=== PATIENT | female | born 1935 | race Caucasian/White ===

== ENCOUNTER 2017-07-16 08:50 | Inpatient (IN) | payer OTHER ==
--- NOTE | 2017-07-16 09:52 | ER ---
Nurse's Notes [facility] Name: Jada Miranda Age: 82 yrs Sex: Female : 1935 Arrival Date: 07/16/2017 Time: 08:58 Bed 16 Private MD: Diagnosis: Gastrointestinal hemorrhage, unspecified;Anemia, unspecified;Unspecified kidney failure Presentation: 07/16 08:59 Presenting complaint: Patient states: From [facility], pt hemoglobin was ch 6 per their labs. c/o feeling dizzy for the past week denies an other issues or concerns. Transition of care: patient was not received from another setting of care. Onset of symptoms was July 06, 2017. Initial Sepsis Screen: Does the patient meet any 2 criteria? No. Patient's initial sepsis screen is negative. Does the patient have a suspected source of infection? No. Patient's initial sepsis screen is negative. Note PT IS A OUT OF HOSPITAL DNR PER PT REQUEST, PT DOES CONSENT TO BLOOD PRODUCTS. AWAITING PROIDER TO WRITE FOR IN HOSPITAL DNR PER PT REQUEST. Care prior to arrival: None. 08:59 Method Of Arrival: EMS: [facility] 08:59 Acuity: DAVIDE 3 ch Triage Assessment: 09:00 General: Appears in no apparent distress. comfortable, slender, Behavior is calm, rb1 cooperative, Reports fever for. Pain: Complains of pain in left low back and right low back Pain currently is 4 out of 10 on a pain scale. Neuro: Level of Consciousness is awake, alert, obeys commands, Oriented to person, place, time, situation, Reports dizziness. Cardiovascular: Capillary refill < 3 seconds is brisk in bilateral fingers. Respiratory: Airway is patent Respiratory effort is even, unlabored, Respiratory pattern is regular, symmetrical. GI: Colostomy site is clean and dry. Ostomy appliance is intact. : No signs and/or symptoms were reported regarding the genitourinary system. Derm: Skin is pink, warm \\T\\ dry. Musculoskeletal: Range of motion: intact in all extremities. Historical: - Allergies: 09:08 Enoxaparin; ch 09:08 Warfarin; ch 09:08 Ceftin; ch 09:08 Codeine; ch 09:08 Plavix; ch 09:08 Lovenox; ch - Home Meds: 09:08 Actonel 35 mg Oral tab 1 tab once wkly [Active]; aspirin 81 mg Oral chew 1 tab once ch daily [Active]; fexofenadine 30 mg Oral tab 1 tabs 2 times per day [Active]; Imodium A-D 2 mg oral tab 2 tabs [Active]; metoprolol tartrate 12.5MG Oral tab 1 tab 2 times per day [Active]; Pepcid 20 mg Oral tab 1 tab 2 times per day [Active]; Vitamin D3 4,000 unit oral cap [Active]; Zofran Oral for NEEDED [Active]; ergocalciferol (vitamin D2) 50,000 unit oral cap 1 cap once wkly [Active]; Flonase 50 mcg/actuation Nasal spsn 2 sprays once daily [Active]; melatonin 3 mg Oral tab daily [Active]; - PMHx: 09:08 Diverticulitis; Hypertension; Depression; MUSCLE WEAKNESS; KIDNEY DISEASE; NAUSEA; ch VITAMIN d DEFICIENCY; Anxiety; Chronic pain; BACK?; GERD; INSOMNIA; CANDIDAL STOMATITIS; DIARRHEA; Sinusitis; "DIFFICULTY WALKING"; ANOREXIA-GETS DIETARY SUPPLEMENTS NEEDED; - PSHx: 09:08 Colostomy; ch - Immunization history:: Adult Immunizations up to date, PT REFUSES. - Social history:: Smoking status: Patient/guardian denies using tobacco, Patient uses PT SMOKED FOR 62 YEARS, QUIT APPROX 9 YEARS AGO. - Family history:: not pertinent. Screenin:00 Abuse screen: Denies threats or abuse. Nutritional screening: No deficits noted. rb1 Tuberculosis screening: No symptoms or risk factors identified. Fall Risk None identified. Assessment: 09:00 General: See triage assessment. rb1 10:00 Reassessment: Patient appears in no apparent distress at this time. No changes from rb1 previously documented assessment. 10:28 Reassessment: Assisted pt. to the bathroom. No complications noted at this time. rb1 11:00 Reassessment: Patient and/or family updated on plan of care and expected duration. Pain rb1 level reassessed. Patient is alert, oriented x 3, equal unlabored respirations, skin warm/dry/pink. Patient denies pain at this time. 11:16 Reassessment: Assisted pt. to the bathroom, no complications noted at this time. rb1 12:00 Reassessment: Patient appears in no apparent distress at this time. Patient and/or rb1 family updated on plan of care and expected duration. Pain level reassessed. Patient is alert, oriented x 3, equal unlabored respirations, skin warm/dry/pink. 12:12 Reassessment: Pt. requested to use the bathroom before starting the blood transfusion. rb1 Assisted pt. to the bathroom, no complications noted at this time. 12:25 Reassessment: Blood transfusion was initiated. Blood was verified by myself and Niecy Ford. 12:46 Reassessment: Patient appears in no apparent distress at this time. No signs of adverse rb1 reactions to the PRBC's is noted at this time. Pt. denies SOB, tolerating blood infusion well. 13:25 Reassessment: Called to give report to the nurse, was asked by DUNIA Zaragoza to call back rb1 because the nurse was getting report on another pt. 13:34 Reassessment: Called back to give report and I was on hold for 9 minutes ([id number]), rb1 so I hung up and called back. 13:51 Reassessment: Called and gave report to RAMON Crum. Information from the SBAR was rb1 given. All questions asked and answered. 14:11 Reassessment: Patient appears in no apparent distress at this time. Patient and/or rb1 family updated on plan of care and expected duration. Pain level reassessed. Patient is alert, oriented x 3, equal unlabored respirations, skin warm/dry/pink. Patient denies pain at this time. Vital Signs: 09:02 BP 175 / 62; Pulse 72; Resp 16; Temp 97.9(O); Pulse Ox 98% on R/A; Weight 59.42 kg (R); rb1 Height 5 ft. 2 in. (157.48 cm) (R); Pain 4/10; 10:00 BP 136 / 58; Pulse 70; Resp 18; Pulse Ox 96% on R/A; Pain 0/10; rb1 11:00 BP 120 / 40; Pulse 76; Resp 23; Pulse Ox 96% on R/A; rb1 12:00 BP 136 / 58; Pulse 70; Resp 18; Pulse Ox 96% on R/A; Pain 0/10; rb1 12:45 BP 127 / 40; Pulse 68; Resp 14; Pulse Ox 95% on R/A; rb1 13:40 BP 121 / 44; Pulse 72; Resp 12; Pulse Ox 97% on R/A; Pain 0/10; rb1 13:52 BP 143 / 58; Pulse 72; Resp 17; Pulse Ox 97% on R/A; Pain 0/10; rb1 09:02 Body Mass Index 23.96 (59.42 kg, 157.48 cm) [facility] ED Course: 08:58 Patient arrived in ED. ch 09:00 Triage completed. ch 09:00 Patient has correct armband on for positive identification. Bed in low position. Call rb1 light in reach. Side rails up X 1. Pulse ox on. NIBP on. Warm blanket given. 09:00 Missed attempt(s): 22 gauge in left forearm. rb1 09:01 Bhumika Hargrove, RN is Primary Nurse. rb1 09:08 Arm band placed on left wrist. Patient placed in an exam room, on a stretcher, on pulse ch oximetry. EKG completed in triage. Results shown to MD. 09:12 EKG done, by brass instrument repair technician. reviewed by Jemal Estevez MD. at1 09:24 Jemal Estevez MD is Attending Physician. luis 09:51 Leigha Zuñiga MD is Hospitalizing Provider. luis 10:00 Kerwin Butts MD is Hospitalizing Provider. luis 10:10 Missed attempt(s): 22 gauge in right forearm. Bleeding controlled, band aid applied, aa5 catheter tip intact. 10:14 X-ray completed. Portable x-ray completed in exam room. jr1 10:15 Initial lab(s) drawn, by nv, sent to lab. T\\T\\S collected, blood band applied to patient. sv Inserted saline lock: 22 gauge in right wrist, using aseptic technique. ,using aseptic technique. diffusics Blood collected. 14:20 No provider procedures requiring assistance completed. Patient admitted, IV remains in rb1 place. Administered Medications: 10:30 Drug: ProTONIX 80 mg Route: IVP; Site: right wrist; rb1 10:45 Follow up: Response: No adverse reaction rb1 10:30 Drug: NS 0.9% 1000 ml Route: IV; Rate: 125 ml/hr; Site: right wrist; rb1 10:30 Drug: Cipro 400 mg Volume: 200 ml; Route: IVPB; Infused Over: 60 mins; Site: right rb1 wrist; 12:18 Follow up: Response: No adverse reaction; IV Status: Completed infusion rb1 Output: 10:28 Urine: 1ml (Voided); Stool: 1 (Loose Stool) ; Total: 1ml. rb1 11:16 Urine: 1ml (Voided); Total: 2ml. rb1 Outcome: 09:51 Decision to Hospitalize by Provider. [facility] 14:20 Patient left the ED. rb1 14:20 Admitted to Med/surg accompanied by nurse, accompanied by tech, via stretcher, room rb1 202, with chart, Report called to RAMON Crum 14:20 Condition: stable 14:20 Instructed on the need for admit. Signatures: Laure Barajas, RN RN Teena Newton RN RN sv Anderson, Corey, MD MD cha Ringgold, Nancy [email or web address] Charlotte Wills RN RN aa5 Reema lovell, windows architect EKG Tat1 Bhumika Hargrove RN RN rb1 Corrections: (The following items were deleted from the chart) 09:18 09:02 BP 175 / 62; Pulse 72bpm; Resp 16bpm; Pulse Ox 98% RA; Temp 97.9F Oral; Pain rb1 0/10; rb1 12:55 10:28 Urine 1, (Voided), Output Total 1. rb1 rb1 13:46 13:25 Reassessment: Called to give report to the nurse, was asked to call back because rb1 she was getting report on another pt rb1 20:46 14:47 Patient left the ED. rb1 rb1
--- NOTE | 2017-07-16 09:52 | EDPHYS ---
Physician Documentation [facility] Name: Jada Miranda Age: 82 yrs Sex: Female : 1935 Arrival Date: 07/16/2017 Time: 08:58 Bed 16 Private MD: Jemal Padilla HPI: 07/16 09:46 This 82 yrs old Female presents to ER via EMS with complaints of Abnormal Lab luis Results. 09:46 The patient presents with anemia, with colostomy. Onset: The symptoms/episode luis began/occurred 14 day(s) ago. Modifying factors: The symptoms are alleviated by nothing, the symptoms are aggravated by nothing. Associated signs and symptoms: The patient has no apparent associated signs or symptoms. Severity of symptoms: At their worst the symptoms were mild. The patient is not sexually active. The patient has not experienced similar symptoms in the past. Historical: - Allergies: 09:08 Enoxaparin; ch 09:08 Warfarin; ch 09:08 Ceftin; ch 09:08 Codeine; ch 09:08 Plavix; ch 09:08 Lovenox; ch - Home Meds: 09:08 Actonel 35 mg Oral tab 1 tab once wkly [Active]; aspirin 81 mg Oral chew 1 tab once ch daily [Active]; fexofenadine 30 mg Oral tab 1 tabs 2 times per day [Active]; Imodium A-D 2 mg oral tab 2 tabs [Active]; metoprolol tartrate 12.5MG Oral tab 1 tab 2 times per day [Active]; Pepcid 20 mg Oral tab 1 tab 2 times per day [Active]; Vitamin D3 4,000 unit oral cap [Active]; Zofran Oral for NEEDED [Active]; ergocalciferol (vitamin D2) 50,000 unit oral cap 1 cap once wkly [Active]; Flonase 50 mcg/actuation Nasal spsn 2 sprays once daily [Active]; melatonin 3 mg Oral tab daily [Active]; - PMHx: 09:08 Diverticulitis; Hypertension; Depression; MUSCLE WEAKNESS; KIDNEY DISEASE; NAUSEA; ch VITAMIN d DEFICIENCY; Anxiety; Chronic pain; BACK?; GERD; INSOMNIA; CANDIDAL STOMATITIS; DIARRHEA; Sinusitis; "DIFFICULTY WALKING"; ANOREXIA-GETS DIETARY SUPPLEMENTS NEEDED; - PSHx: 09:08 Colostomy; ch - Immunization history:: Adult Immunizations up to date, PT REFUSES. - Social history:: Smoking status: Patient/guardian denies using tobacco, Patient uses PT SMOKED FOR 62 YEARS, QUIT APPROX 9 YEARS AGO. - Family history:: not pertinent. ROS: 09:46 Constitutional: Negative for fever, chills, and weight loss, Eyes: Negative for injury, luis pain, redness, and discharge, ENT: Negative for injury, pain, and discharge, Neck: Negative for injury, pain, and swelling, Cardiovascular: Negative for chest pain, palpitations, and edema, Respiratory: Negative for shortness of breath, cough, wheezing, and pleuritic chest pain, Abdomen/GI: Negative for abdominal pain, nausea, vomiting, diarrhea, and constipation, Back: Negative for injury and pain, : Negative for injury, bleeding, discharge, and swelling, MS/Extremity: Negative for injury and deformity, Neuro: Negative for headache, weakness, numbness, tingling, and seizure, Psych: Negative for depression, anxiety, suicide ideation, homicidal ideation, and hallucinations, Allergy/Immunology: Negative for hives, rash, and allergies, Endocrine: Negative for neck swelling, polydipsia, polyuria, polyphagia, and marked weight changes, Hematologic/Lymphatic: Negative for swollen nodes, abnormal bleeding, and unusual bruising. 09:46 Skin: Positive for pallor. Exam: 09:46 Constitutional: This is a well developed, well nourished patient who is awake, alert, luis and in no acute distress. Head/Face: Normocephalic, atraumatic. Eyes: Pupils equal round and reactive to light, extra-ocular motions intact. Lids and lashes normal. Conjunctiva and sclera are non-icteric and not injected. Cornea within normal limits. Periorbital areas with no swelling, redness, or edema. ENT: Nares patent. No nasal discharge, no septal abnormalities noted. Tympanic membranes are normal and external auditory canals are clear. Oropharynx with no redness, swelling, or masses, exudates, or evidence of obstruction, uvula midline. Mucous membranes moist. Neck: Trachea midline, no thyromegaly or masses palpated, and no cervical lymphadenopathy. Supple, full range of motion without nuchal rigidity, or vertebral point tenderness. No Meningismus. Chest/axilla: Normal chest wall appearance and motion. Nontender with no deformity. No lesions are appreciated. Cardiovascular: Regular rate and rhythm with a normal S1 and S2. No gallops, murmurs, or rubs. Normal PMI, no JVD. No pulse deficits. Respiratory: Lungs have equal breath sounds bilaterally, clear to auscultation and percussion. No rales, rhonchi or wheezes noted. No increased work of breathing, no retractions or nasal flaring. Back: No spinal tenderness. No costovertebral tenderness. Full range of motion. Female : Normal external genitalia. MS/ Extremity: Pulses equal, no cyanosis. Neurovascular intact. Full, normal range of motion. Neuro: Awake and alert, GCS 15, oriented to person, place, time, and situation. Cranial nerves II-XII grossly intact. Motor strength 5/5 in all extremities. Sensory grossly intact. Cerebellar exam normal. Normal gait. Psych: Awake, alert, with orientation to person, place and time. Behavior, mood, and affect are within normal limits. 09:46 Abdomen/GI: Inspection: abdomen appears normal, Bowel sounds: normal, Palpation: abdomen is soft and non-tender, Rectal exam: Stool: guaiac positive, hemorrhoid(s), are not appreciated, pt has colostomy. Liver: no appreciated palpable abnormalities, Hernia: not appreciated. Vital Signs: 09:02 BP 175 / 62; Pulse 72; Resp 16; Temp 97.9(O); Pulse Ox 98% on R/A; Weight 59.42 kg (R); rb1 Height 5 ft. 2 in. (157.48 cm) (R); Pain 4/10; 10:00 BP 136 / 58; Pulse 70; Resp 18; Pulse Ox 96% on R/A; Pain 0/10; rb1 11:00 BP 120 / 40; Pulse 76; Resp 23; Pulse Ox 96% on R/A; rb1 12:00 BP 136 / 58; Pulse 70; Resp 18; Pulse Ox 96% on R/A; Pain 0/10; rb1 12:45 BP 127 / 40; Pulse 68; Resp 14; Pulse Ox 95% on R/A; rb1 13:40 BP 121 / 44; Pulse 72; Resp 12; Pulse Ox 97% on R/A; Pain 0/10; rb1 13:52 BP 143 / 58; Pulse 72; Resp 17; Pulse Ox 97% on R/A; Pain 0/10; rb1 09:02 Body Mass Index 23.96 (59.42 kg, 157.48 cm) rb1 MDM: 09:24 Patient medically screened. [facility] 11:16 Data reviewed: vital signs, nurses notes, lab test result(s), EKG, radiologic studies, luis plain films. 07/16 09:46 Order name: Basic Metabolic Panel [facility] 07/16 09:46 Order name: BNP [facility] 07/16 09:46 Order name: CBC with Diff; Complete Time: 11:12 [facility] 07/16 09:46 Order name: Ckmb; Complete Time: 11:12 [facility] 07/16 09:46 Order name: CPK; Complete Time: 11:12 [facility] 07/16 09:46 Order name: LFT's; Complete Time: 11:12 [facility] 07/16 09:46 Order name: Magnesium; Complete Time: 11:12 [facility] 07/16 09:46 Order name: PT-INR; Complete Time: 11:12 [facility] 07/16 09:46 Order name: Ptt, Activated; Complete Time: 11:12 [facility] 07/16 09:46 Order name: Troponin (emerg Dept Use Only); Complete Time: 11:12 [facility] 07/16 09:46 Order name: Type And Screen [facility] 07/16 09:46 Order name: Lipase; Complete Time: 11:12 [facility] 07/16 09:46 Order name: Basic Metabolic Panel; Complete Time: 11:12 [facility] 07/16 09:46 Order name: BNP B-Type Natriuretic Peptide; Complete Time: 11:12 [facility] 07/16 09:46 Order name: XRAY Chest (1 view) [facility] 07/16 09:46 Order name: EKG; Complete Time: 09:47 [facility] 07/16 09:46 Order name: Cardiac monitoring; Complete Time: 10:43 [facility] 07/16 09:46 Order name: EKG - Nurse/Tech; Complete Time: 10:43 [facility] 07/16 09:46 Order name: IV Saline Lock; Complete Time: 10:43 [facility] 07/16 09:47 Order name: Urine Culture [facility] 07/16 09:48 Order name: Urine Microscopic Only; Complete Time: 11:12 [facility] 07/16 09:53 Order name: Bb Add On bd 07/16 09:56 Order name: CONS Physician Consult [facility] 07/16 09:57 Order name: Packed RBC Leukored -1 [facility] 07/16 09:57 Order name: Urine Dipstick--Ancillary (enter results) 07/16 10:03 Order name: Urine Dipstick-Ancillary; Complete Time: 11:12 [facility] 07/16 10:35 Order name: RAD; Complete Time: 11:12 [facility] 07/16 09:46 Order name: Labs collected and sent; Complete Time: 10:42 [facility] 07/16 09:46 Order name: O2 Per Protocol; Complete Time: 10:43 [facility] 07/16 09:46 Order name: O2 Sat Monitoring; Complete Time: 10:43 [facility] 07/16 09:46 Order name: Urine Dipstick-Ancillary (obtain specimen); Complete Time: 09:48 [facility] 07/16 09:46 Order name: Transfuse [facility] Administered Medications: 10:30 Drug: ProTONIX 80 mg Route: IVP; Site: right wrist; rb1 10:45 Follow up: Response: No adverse reaction rb1 10:30 Drug: NS 0.9% 1000 ml Route: IV; Rate: 125 ml/hr; Site: right wrist; rb1 10:30 Drug: Cipro 400 mg Volume: 200 ml; Route: IVPB; Infused Over: 60 mins; Site: right rb1 wrist; 12:18 Follow up: Response: No adverse reaction; IV Status: Completed infusion rb1 Disposition: 07/16/17 09:51 Hospitalization ordered by Kerwin Butts for Inpatient Admission. Preliminary diagnosis are Gastrointestinal hemorrhage, unspecified, Anemia, unspecified, Unspecified kidney failure. - Bed requested for Telemetry/MedSurg (Inpatient). - Status is Inpatient Admission. rb1 - Condition is Fair. - Problem is new. - Symptoms are unchanged. UTI on Admission? Yes Signatures: Dispatcher [employer] [facility] Jyoti Aggarwal Laure Barajas RN RN ch Anderson, Corey, MD MD cha Barber, Rebecca, RN RN rb1 Lizett Vanessa RN RN df Corrections: (The following items were deleted from the chart) 10:01 09:51 Hospitalization Ordered by Leigha Zuñiga MD for Inpatient Admission. Preliminary [facility] diagnosis is Gastrointestinal hemorrhage, unspecified; Anemia, unspecified. Bed requested for Telemetry/MedSurg (Inpatient). Status is Inpatient Admission. Condition is Fair. Problem is new. Symptoms are unchanged. UTI on Admission? Yes. luis 11:17 10:01 07/16/2017 09:51 Hospitalization Ordered by Kerwin Butts MD for Inpatient luis Admission. Preliminary diagnosis is Gastrointestinal hemorrhage, unspecified; Anemia, unspecified. Bed requested for Telemetry/MedSurg (Inpatient). Status is Inpatient Admission. Condition is Fair. Problem is new. Symptoms are unchanged. UTI on Admission? Yes. luis 11:59 11:17 07/16/2017 09:51 Hospitalization Ordered by Kerwin Butts MD for Inpatient bd Admission. Preliminary diagnosis is Gastrointestinal hemorrhage, unspecified; Anemia, unspecified; Unspecified kidney failure. Bed requested for Telemetry/MedSurg (Inpatient). Status is Inpatient Admission. Condition is Fair. Problem is new. Symptoms are unchanged. UTI on Admission? Yes. luis 11:59 11:59 07/16/2017 09:51 Hospitalization Ordered by Kerwin Butts MD for Inpatient bd Admission. Preliminary diagnosis is Gastrointestinal hemorrhage, unspecified; Anemia, unspecified; Unspecified kidney failure. Bed requested for Telemetry/MedSurg (Inpatient). Status is Inpatient Admission. Condition is Fair. Problem is new. Symptoms are unchanged. UTI on Admission? Yes. bd 12:08 11:59 07/16/2017 09:51 Hospitalization Ordered by Kerwin Butts MD for Inpatient df Admission. Preliminary diagnosis is Gastrointestinal hemorrhage, unspecified; Anemia, unspecified; Unspecified kidney failure. Bed requested for Telemetry/MedSurg (Inpatient). Status is Inpatient Admission. Condition is Fair. Problem is new. Symptoms are unchanged. UTI on Admission? Yes. bd 14:07 12:08 07/16/2017 09:51 Hospitalization Ordered by Kerwin Butts MD for Inpatient bd Admission. Preliminary diagnosis is Gastrointestinal hemorrhage, unspecified; Anemia, unspecified; Unspecified kidney failure. Bed requested for Telemetry/MedSurg (Inpatient). Status is Inpatient Admission. Condition is Fair. Problem is new. Symptoms are unchanged. UTI on Admission? Yes. df 14:47 14:07 07/16/2017 09:51 Hospitalization Ordered by Kerwin Butts MD for Inpatient rb1 Admission. Preliminary diagnosis is Gastrointestinal hemorrhage, unspecified; Anemia, unspecified; Unspecified kidney failure. Bed requested for Telemetry/MedSurg (Inpatient). Status is Inpatient Admission. Condition is Fair. Problem is new. Symptoms are unchanged. UTI on Admission? Yes. bd
[2017-07-16 10:02] LABS: Urine Blood NEGATIVE (NEG); Urine Glucose NEGATIVE (NEG); Urine Protein NEGATIVE (NEG); Urine Specific Gravity <1.005 (1.005-1.030)
[2017-07-16 10:16] LABS: Urine Bacteria 20-50 /HPF (<20); Urine Culture Reflex Order NOT NEEDED; Urine RBC <5 /HPF (NONE SEEN)
[2017-07-16] MEDS ORDERED: NA CHLORIDE 0.9% 1,000 ML ONE (10:19)
[2017-07-16] MEDS ORDERED: PANTOPRAZOLE 40 MG INJ ONE (10:19)
[2017-07-16] MEDS ORDERED: CIPROFLOXACIN 400mg IV 400 MG/200 ML BAG IV ONE (10:19)
[2017-07-16] MEDS ORDERED: ONDANSETRON 4 MG/2 ML VIAL IV PRN ×2 (10:23→11:26)
[2017-07-16 10:33] LABS: Absolute Monocytes 0.8 K/uL (0.1-1.3); Absolute Neutrophil 7.9 K/uL (1.8-8.0); Basophils % 1.3 % (0-1.3); Eosinophils % 2.1 % (0-4.4); Hematocrit 22.2 % (36.0-45.0); Lymphocytes % 10.3 % (15.3-44.8); MCH 22.2 pg (27.0-35.0); MCV 73.9 fL (80-100); MPV 7.7 fL (7.6-11.3); Monocytes % 7.7 % (3.3-12.3); RBC Red Blood Cell Count 3.01 M/uL (3.86-4.86)
--- NOTE | 2017-07-16 10:35 | RAD REPORT ---
EXAM DESCRIPTION: RAD - Chest Single View - 07/16/2017 10:25 am CLINICAL HISTORY: Hypertension COMPARISON: 08/04/2015 FINDINGS: Portable technique limits examination quality. The lungs are mildly emphysematous but clear. The heart is upper limit normal in size. No displaced f ractures.Surgical clips are present superimposed on the upper chest. IMPRESSION: COPD without acute finding demonstrated.
[2017-07-16 10:37] LABS: Protime INR 1.14
[2017-07-16 10:46] LABS: Potassium 3.9 mEq/L (3.6-5.0)
[2017-07-16 10:53] LABS: Albumin 3.5 g/dL (3.2-5.5); Bilirubin Direct 0.1 mg/dL (0-0.2); Bilirubin Total 0.8 mg/dL (0.3-1.2); CKMB Creatine Kinase MB 1.6 ng/ml (0.3-4.0); Magnesium 1.9 mg/dL (1.8-2.5); Protein, Total 6.8 g/dL (6.0-8.3)
[2017-07-16] MEDS ORDERED: NA CHLORIDE 0.9% 250 ML IV SCH ×2 (11:00→12:00)
[2017-07-16] MEDS ORDERED: NA CHLORIDE 0.9% 1,000 ML IV SCH (11:00)
[2017-07-16] MEDS ORDERED: NA CHLORIDE 0.9% 250 ML ONE (11:59)
[2017-07-16] MEDS: NA CHLORIDE 0.9% 1,000 ML IV SCH ×2 (12:00→22:00)
[2017-07-16] MEDS ORDERED: CEFTRIAXONE/SWI 1gm 1 GM/10 ML SYR IV SCH (15:00)
--- NOTE | 2017-07-16 15:28 | EKG ---
Test Date: 2017-07-16 Test Time: 08:59:12 Mill Supervisor: MARLA MEASUREMENT RESULTS: Intervals: Rate: 68 WV: 166 QRSD: 86 QT: 410 QTc: 435 Sherman: P: 68 WV: 166 QRS: 63 T: 68 INTERPRETIVE STATEMENTS: Normal sinus rhythm with sinus arrhythmia Voltage criteria for left ventricular hypertrophy Abnormal ECG Compared to ECG 07/27/2015 07:35:34 Left ventricular hypertrophy now present ST (T wave) deviation no longer present Electronically Signed On 07-16-17 15:26:59 CDT by Jeremy Milian
[2017-07-16] MEDS ORDERED: CIPROFLOXACIN 400mg IV 400 MG/200 ML BAG IV SCH (21:00)
[2017-07-16] MEDS ORDERED: PANTOPRAZOLE 40 MG INJ IVP SCH (21:00)
[2017-07-16] MEDS ORDERED: PNEUMOCOCCAL VACCINE 0.5 ML IMVAC ONE (21:00)
[2017-07-16] MEDS: METOPROLOL TAR 25 MG TAB PO SCH (21:23)
[2017-07-16] MEDS: CIPROFLOXACIN 400mg IV 400 MG/200 ML BAG IV SCH (21:25)
[2017-07-16] MEDS: PANTOPRAZOLE 40 MG INJ IVP SCH (21:25)
[2017-07-16] MEDS ORDERED: FUROSEMIDE 40 MG/4 ML VIAL IV ONE (23:00)
[2017-07-16 23:25] LABS: Hematocrit 28.1 % (36.0-45.0)
--- NOTE | 2017-07-17 01:20 | HP ---
Date of Admission: 07/16/2017 Consultants: Lazaro Romo MD with GI. History Of Present Illness: The patient is an 82-year-old female with past medical history of recurr ent UTIs, hypertension, diverticulosis, coronary artery disease, hyperlipidemia, osteoporosis, allerg ic rhinitis, carotid artery stenosis, anxiety, GERD, neuropathy, lumbar spinal stenosis, who came in from the hospital due to abnormal labs. Hemoglobin was found to be 6.8. No reports of bleeding thro ugh the ileostomy. Denies any dizziness, lightheadedness. The patient is on daily aspirin. The pat ient's symptoms are constant and moderate, progressively worsening. In the ER, her workup confirmed a hemoglobin of 6.7. Her creatinine was 3.10. Most recent baseline was normal. Her UA was also abn ormal. The patient was started on 2 units of PRBCs given a dose of Cipro. GI was consulted by the E R. The patient was referred for admission. When the patient was seen in the ER, she was awake, aler t, oriented, in some mild distress, ill-appearing elderly female. Past Medical History: Recurrent UTIs, hypertension, diverticulosis, anemia, coronary artery disease, hyperlipidemia, impaired fasting glucose, osteoporosis, allergic rhinitis, coronary artery stenosis, anxiety, GERD, peripheral neuropathy, or spinal stenosis. Past Surgical History: Surgery of the carotid and subclavian artery in 2007, cholecystectomy, D and C, fistula repair with high output ileostomy. Allergies: TO LOVENOX AND COUMADIN. Medications: List reviewed. Family History: Not pertinent 82-year-old female. Social History: No smoking, alcohol, or street drug use. The patient is a resident of [facility]. Review of Systems: An 11-point system reviewed, negative except as per HPI. Physical Examination: Vital Signs: Blood pressure 175/62, pulse 72, respirations 16, temperature 97.9, pulse ox 98% on prisca m air. General: Awake, alert, oriented x3, in some mild distress. Ill-appearing female, elderly, frail. HEENT: Normocephalic, atraumatic. PERRLA. EOMI. Dry mucous membranes. Oropharynx is clear. Poor dentition. Conjunctivae anicteric. Neck: Supple. No JVD. Trachea midline. CV: S1, S2. No murmurs. Peripheral pulses are present bilaterally. Respiratory: Clear to auscultation bilaterally. No wheezing. No stridor. No use of accessory musc les. Gastrointestinal: Abdomen is soft, nontender, nondistended. Positive bowel sounds. Ileostomy in pl [place]. No rebound or guarding. Extremities: No clubbing, cyanosis, or edema. No calf tenderness. Neuro: Cranial nerves 2-12 intact grossly. No focal neurological deficit. Speech is normal. Stren gth is 5/5 in bilateral upper and lower extremities. Skin: No rashes. Normal skin turgor. Psych: Mood is okay. Affect is full. Insight and judgment are good. Laboratory Data: WBC 10, H and H 6.7 and 22.2, platelets 454, neutrophils 78%. INR 1.14. Sodium 13 2, potassium 3.9, chloride 98, CO2 26, BUN 32, creatinine 3.1, glucose 109, calcium 8.6, magnesium 1. 9. Troponin less than 0.03. BNP 133, lipase 25. UA, positive nitrite, trace leukocyte, 10-20 WBC, 20-50 bacteria. Chest x-ray personally reviewed shows COPD without acute finding demonstrated. Assessment: This is an 82-year-old female with: 1.Acute anemia, likely blood loss anemia. We will consult GI. We will keep n.p.o., start on IV PPI . Guaiac was positive. We will hold aspirin for now. 2.Acute kidney injury. Creatinine is 3.10. We will consult Nephrology. Continue on IV fluids. Mo nitor creatinine. Avoid NSAIDs and nephrotoxins. 3.Acute gastrointestinal bleed, likely lower source. GI on board. Continue to monitor H and H. 4.Urinary tract infection. We will start on IV antibiotics. Follow up with urine culture. 5.Thrombocytosis. 6.Essential hypertension, stable. 7.History of diverticulosis. 8.Coronary artery disease, [place] artery and [place] heart without angina. 9.Hyperlipidemia. 10.Osteoporosis. 11.Carotid artery stenosis. 12.Generalized anxiety disorder. 13.Gastroesophageal reflux disease. Continue PPI. 14.Peripheral neuropathy. 15.History of lumbar spinal stenosis. 16.Gastrointestinal and deep venous thrombosis prophylaxis PPI and SCDs. No chemical anticoagulatio n due to GI bleed. Plan: Admit the patient to Med-Surg, place as inpatient. SA/MODL Voice ID: [id number]
[2017-07-17 05:14] LABS: Absolute Monocytes 0.9 K/uL (0.1-1.3); Absolute Neutrophil 7.8 K/uL (1.8-8.0); Eosinophils % 1.6 % (0-4.4); Hematocrit 26.2 % (36.0-45.0); Lymphocytes % 10.2 % (15.3-44.8); MCH 23.2 pg (27.0-35.0); MCV 73.8 fL (80-100); MPV 7.7 fL (7.6-11.3); Monocytes % 8.7 % (3.3-12.3); RBC Red Blood Cell Count 3.56 M/uL (3.86-4.86)
[2017-07-17 05:20] LABS: Potassium 4.2 mEq/L (3.6-5.0)
[2017-07-17] MEDS: METOPROLOL TAR 25 MG TAB PO SCH ×2 (09:02→22:07)
[2017-07-17] MEDS: PANTOPRAZOLE 40 MG INJ IVP SCH ×2 (09:03→22:08)
[2017-07-17] MEDS ORDERED: Morphine 2 MG/2 ML SYR IV ONE (10:05)
--- NOTE | 2017-07-17 11:21 | RAD REPORT ---
EXAM DESCRIPTION: US - Renal Ultrasound-Complete - 07/17/2017 10:42 am CLINICAL HISTORY: Acute kidney injury COMPARISON: Ultrasound July 2015 FINDINGS: The right kidney measures 8.4 x 3.8 x 4.4 cm. The left kidney measures 9.0 x 3.4 x 4.5 cm . Cortical thickness is normal. There is an increase in cortical echogenicity consistent with medical renal disease. No hydronephrosis or suspicious renal mass. Small 10 mm cyst seen upper pole right ki dney. IMPRESSION: Medical renal disease is evident. No hydronephrosis or suspicious renal parenchymal proc ess.
[2017-07-17] MEDS: NA CHLORIDE 0.9% 1,000 ML IV SCH (12:55)
--- NOTE | 2017-07-17 14:11 | PN ---
Date of Progress Note: 07/17/2017 Subjective: The patient seen and examined. Chart reviewed and case discussed with RN and Dr. Romo. The patient awaiting GI evaluation for possible scope. No further bleeding. H and H stable after t ransfusion. Review of Systems: Negative except as above. Medications: Reviewed. Physical Examination: Vital Signs: Temperature 98.4, heart rate 65, blood pressure 118/51, respirations 16, O2 97% on room air. General: Awake, alert, oriented x3, not in any acute distress. Elderly female. CV: S1, S2. Peripheral pulses present. Respiratory: Moving air well bilaterally. No wheezing. Gastrointestinal: Abdomen is soft, nontender, nondistended. Positive bowel sounds. Extremities: No clubbing, cyanosis, or edema. Neurologic: Nonfocal. Laboratory Data: Sodium 136, potassium 4.2, chloride 102, CO2 26, BUN 28, creatinine 2.87, glucose 8 5, calcium 8.9. WBC 9.9, H and H 8.2 and 26.2, platelets 392, neutrophils 78%. Stool occult blood i s negative. Urine culture showing 2+ gram-negative rods. Assessment And Plan: An 82-year-old female with: 1.Acute blood loss anemia, status post transfusion. We will keep monitoring H and H, transfuse as n eeded. Continue IV PPI. 2.Acute gastrointestinal bleed. Dr. Romo has been consulted. On IV PPI. 3.Acute kidney injury. Creatinine is improving. Appreciate Nephrology input. We will continue to monitor. We will avoid NSAIDs and nephrotoxins. 4.Urinary tract infection. Urine culture is growing 2+ gram-negative rods. We will continue IV ant ibiotics and follow up on ID and sensitivity. 5.Thrombocytosis, resolved. 6.Essential hypertension, stable. Resume home medications. 7.History of diverticulosis. 8.Coronary artery disease, [place] artery and [place] heart without angina, stable. 9.Hyperlipidemia, mixed. Continue home medications. 10.Osteoporosis. 11.Carotid artery stenosis. 12.Generalized anxiety disorder. We will resume home medications. 13.Gastroesophageal reflux disease. Continue PPI. No esophagitis. 14.Peripheral neuropathy. 15.History of lumbar spinal stenosis. Adjust pain medications. 16.Gastrointestinal and deep venous thrombosis prophylaxis with PPI and SCDs. No chemical anticoagu lation due to gastrointestinal bleed. SA/MODL Voice ID: [id number] Report ID: [id number]
[2017-07-17] MEDS: ACETAMINOPHEN 500 MG TAB PO PRN (14:54)
--- NOTE | 2017-07-17 21:31 | CON ---
Date of Consultation: 07/17/2017 Reason For Consultation: Anemia, hemoglobin and hematocrit are in the range of 6.7 and 22 with low M CV. History Of Present Illness: Ms. Miranda is an 82-year-old female with past history of peptic ulcer disease and GI bleeding. However, she is noncompliant, generally does not follow up. In addition t o that, she has renal failure. She got admitted in the hospital with progressive worsening shortness of breath, lack of tolerance of exercise, and when in the ER it was shown that her hemoglobin and he matocrit are very low. In addition, the renal failure, as a result, she got admitted. At this time, she states that in general she is feeling somewhat better after getting blood transfusion. Denies a ny hematemesis, melena, or hematochezia. She also has abdominal pain in the right mid quadrant, no r adiation; however, it is related to her postural change. Her shortness of breath has improved. Past Medical History: As elaborated above. In addition to that, UTI, diverticulosis, hypertension, GERD, coronary artery disease. Past Surgical History: Peripheral vascular disease surgery, cholecystectomy, fistula repair, ileosto my. Family History: Gastrointestinal malignancy history is not in her family. Social History: No alcohol or tobacco. Psychiatric History: None. Allergies: REVIEWED IN THE CHART. Medications: Reviewed in the chart. Review of Systems: General: Positive weakness. Positive shortness of breath, especially upon exertion. No fever or ch ills. GI: As elaborated above. Hepatology: Denies any history of jaundice, hepatitis, any other liver disease. Pulmonary: Shortness of breath upon exertion. No cough or expectoration. Cardiac: Positive palpitation. No heart murmur. No orthopnea or dyspnea. Genitourinary: Occasional incontinence. Musculoskeletal: Generalized weakness, some arthralgia and myalgia. Dermatologic: No complaint. Physical Examination: General: Elderly female, at this time no other acute distress noted. Hemodynamic respiratory profil e within normal range. HEENT: Atraumatic, normocephalic. Some bitemporal wasting noted. No icterus; however, pallor in th e conjunctivae noted. Neck: Supple. No lymphadenopathy. Trachea central in position. Chest: Clear to auscultation and percussion. Cardiovascular: S1 and S2 are irregular. Abdomen: Soft, nontender, nondistended. Excellent bowel sounds present. No hepatomegaly. No splen omegaly. No succussion splash. Neurologic: Alert and oriented x3. Intact memory, mentation, and judgment. Extremities: Upper and lower extremities are normal and symmetrical. Dermatologic: Normal. Diagnostic Data: As elaborated above. Impression, Plan And Recommendation: Ms. Miranda is an 82-year-old female with low MCV or microcyt ic anemia. She also has renal failure, multiple other medical problems. She has been also noncompli ant in the past. This could be lower GI bleeding or upper GI bleeding; however, given the past history of upper GI ble eding from bleeding peptic ulcer disease, I will proceed with upper GI endoscopy. This will also giv e us indirect evidence as to how she will tolerate anesthesia and other thing. If no acute bleeding noted in the EGD, colonoscopy could be done on as an outpatient basis. I have had a long discussion with the patient regarding the indications, contraindications, possible complications, alternatives of all of the above including rare fatalities related to anesthesia. She has good understanding. Geronimo alas is agreeable. REYNALDO/JOE Voice ID: [id number] Report ID: [id number]
[2017-07-17] MEDS: CIPROFLOXACIN 400mg IV 400 MG/200 ML BAG IV SCH (22:07)
[2017-07-17] MEDS ORDERED: TRAZODONE 50 MG TABLET PO PRN (22:55)
[2017-07-18] MEDS: NA CHLORIDE 0.9% 1,000 ML IV SCH ×2 (01:20→14:35)
--- NOTE | 2017-07-18 02:33 | CON ---
Date of Consultation: 07/17/2017 Reason For Consultation: Elevated BUN and creatinine, fluid management. History Of Present Illness: This is an 82-year-old female with significant past medical history of; 1.Hypertension. 2.Diverticulosis, status post colostomy. 3.Coronary artery disease. 4.Hyperlipidemia. 5.Osteoporosis. 6.Carotid stenosis. 7.GERD. 8.Neuropathy. 9.Lumbar spinal stenosis. The patient came to the hospital from the [facility] because of low H and H. Primary workup showed hemoglobin down to 6.8, creatinine up to 3.1. For that reason, we have been consulted. The patient denied taking any nonsteroidal. Denied any antibiotic. No itching. The patient admitted that she has a problem with the diarrhea since her colostomy placed, but denies any fever or any chills. Past Medical History: Includes; 1.Diverticulosis, status post colostomy. 2.Recurrent UTI. 3.Coronary artery disease. 4.Carotid stenosis. 5.Hyperlipidemia. 6.GERD. Past Surgical History: Includes; 1.Surgery for the carotid. 2.Cholecystectomy. 3.Fistula. 4.Ileostomy. Allergies: TO COUMADIN AND LOVENOX. Family History: Positive for hypertension. Social History: Lives in [facility]. Denies smoking. Denies drinking. Denies drugs abuse. Medications: Home medications for the patient include; 1.Magnesium oxide. 2.Zofran. 3.Omeprazole. 4.Metoprolol 25 b.i.d. 5.Loperamide. Current medications in the hospital include; 1.Cipro 400. 2.Metoprolol 25. 3.Pantoprazole. 4.IV fluids. Physical Examination: General: When I saw the patient, the patient was lying in bed, not in any distress. Vital Signs: Blood pressure 162/62, pulse of 64, and afebrile. Chest: Clear to auscultation. Heart: S1, S2. Regular. Abdomen: Soft and nontender. Extremities: No edema. Abdomen: Colostomy. Neurologic: Alert. Nonfocal. The patient had urine output 825 over the last 12 hours. Laboratory Data: On admission, H and H 6.7/22.2. Currently, WBC 9.9, H and H 8.2/26.2, and platelet s 392. Sodium on admission 132, potassium 3.9, BUN 32, and creatinine of 3. Currently, sodium 136, potassium 4.2, bicarb 26, BUN 28, creatinine 2.8, and calcium 8.9. BMP 133. Urinalysis; specific gr avity of 1.005, wbc's of 20, rbc's of 50. Renal ultrasound showing 8.4 x 9 atrophic bilateral kidney s. Reviewing the record for the patient, the patient's creatinine back in August 2015 was creatinine of 1. 05 and GFR of 50. Assessment And Plan: 1.Acute kidney injury, normal-sized kidneys to small kidneys bilaterally, possible prerenal dehydrat ion secondary to use of diuresis, on the recovery phase. I am going to continue gentle hydration. W e will monitor the patient. We will send further workup. 2.Hypertension, currently noncontrolled. I am going to go ahead and add calcium channel jessie, an d we will monitor. 3.Anemia. We will follow up with GI, status post transfusion, stable. I am going to go ahead and s end for anemia workup. 4.Urinary tract infection. The patient was started on ciprofloxacin. We will follow up. Thank you, Dr. Romo, for allowing us to participate in the care of your patient. JR Voice ID: [id number] Report ID: [id number]
[2017-07-18 07:01] LABS: Absolute Lymphocytes (CBC) 1.2 K/uL (0.7-4.9); Absolute Monocytes 0.8 K/uL (0.1-1.3); Absolute Neutrophil 5.7 K/uL (1.8-8.0); Basophils % 1.3 % (0-1.3); Eosinophils % 2.5 % (0-4.4); Hematocrit 28.2 % (36.0-45.0); Lymphocytes % 14.8 % (15.3-44.8); MCH 23.4 pg (27.0-35.0); MCV 73.5 fL (80-100); MPV 8.2 fL (7.6-11.3); RBC Red Blood Cell Count 3.83 M/uL (3.86-4.86)
[2017-07-18 07:18] LABS: BUN Blood Urea Nitrogen 29 mg/dL (6-20); Bicarbonate 26 mEq/L (21-31); Ferritin 15.5 ng/ml (11.0-306.8); Folic Acid, (Folate) > 22.3 ng/ml (>5.21); Glucose Level 73 mg/dL (65-120); Phosphorus 4.2 mg/dL (2.5-4.3); Potassium 4.2 mEq/L (3.6-5.0); Sodium Level 135 mEq/L (135-145); Thyroid Stimulating Hormone 0.59 uIU/mL (0.34-5.60); Transferrin 355 mg/dL (192-382)
[2017-07-18] MEDS: METOPROLOL TAR 25 MG TAB PO SCH ×3 (09:00→21:10)
[2017-07-18] MEDS ORDERED: Meropenem 500 MG VIAL IV SCH (09:00)
[2017-07-18] MEDS: Meropenem 500 MG in NA CHLORIDE 0.9% 100 ML IV SCH ×2 (09:11→16:49)
[2017-07-18] MEDS: PANTOPRAZOLE 40 MG INJ IVP SCH ×2 (09:12→21:11)
[2017-07-18] MEDS: ACETAMINOPHEN 500 MG TAB PO PRN (11:12)
[2017-07-18] MEDS ORDERED: Morphine 2 MG/2 ML SYR IV ONE (11:18)
--- NOTE | 2017-07-18 13:56 | PN ---
Date of Progress Note: 07/18/2017 Subjective: The patient is seen and examined. Chart reviewed and case discussed with GI, Dr. Romo. The patient doing better this morning. Awaiting scope. Denies any significant pain. Review of Systems: Negative except as above. Medications: Reviewed. Physical Examination: Vital Signs: Temperature 99.6, heart rate 61, blood pressure 139/51, respirations 16, O2 96% on 2 L nasal cannula. General: Awake, alert, oriented x3, in no acute distress. Elderly female, frail. CV: S1, S2. No murmurs. Peripheral pulses present. Respiratory: Clear to auscultation bilaterally. No wheezing. No stridor. No use of accessory muscles. Gastrointestinal: Abdomen is soft, nontender, nondistended. Positive bowel sounds. Extremities: No clubbing, cyanosis, or edema. Neurologic: Nonfocal. Laboratory Data: Sodium 135, potassium 4.2, chloride 102, CO2 26, BUN 29, creatinine 2.57, glucose 73, calcium 9, phosphorus 4.2. Iron 32, TIBC 497, transferrin 355, ferritin 15.5, albumin 3, vitamin B12 of 344, folate greater than 22, TSH 0.59. WBC 8, H and H 9 and 28.2, platelets 392, neutrophils 71%. Rheumatoid factor pending. Urine culture growing Proteus mirabilis ESBL producing. Assessment And Plan: An 82-year-old female with: 1. Acute blood loss anemia, status post transfusion. We will monitor H and H. The patient going for scope today. Continue IV PPI. 2. Acute gastrointestinal bleed. Appreciate Dr. Romo's input. Continue PPI. No further bleed. 3. Acute kidney injury. Creatinine improved. We will continue to monitor. Continue IV fluids. Avoidance of nephrotoxins. Appreciate Nephrology input. 4. Urinary tract infection, acute cystitis without hematuria. Culture growing Proteus mirabilis ESBL producing. We will switch antibiotics to meropenem. The patient will need PICC line and IV antibiotics for 4 weeks. We will consult Social Work to set that up at the alf. 5. Essential hypertension, stable. 6. History of diverticulosis. 7. Coronary artery disease, [place] artery and [place] heart without angina, stable. 8. Hyperlipidemia, mixed. Continue statin. 9. Osteoporosis. 10. Carotid artery stenosis. 11. Generalized anxiety disorder. Resume medications. 12. Gastroesophageal reflux disease without esophagitis. Continue PPI. 13. Peripheral neuropathy. 14. History of lumbar spinal stenosis. Continue pain medications. 15. Gastrointestinal and deep venous thrombosis prophylaxis with PPI and SCDs. No chemical anticoagulation due to GI bleed. /JOE Voice ID: [id number] Report ID: [id number]
[2017-07-18] MEDS ORDERED: NA CHLORIDE 0.9% 1,000 ML ONE (13:57)
[2017-07-18] MEDS ORDERED: PROPOFOL 200 MG/20 ML VIAL IV ONE (14:11)
--- NOTE | 2017-07-18 23:30 | PN ---
Date of Progress Note: 07/18/2017 Chief Complaint: Acute kidney injury. History Of Present Illness: Acute kidney injury, severe, nonoliguric. Renal function has not improved significantly since yesterday. Creatinine level was 2.57. The patient presented to the hospital with generalized weakness. She had blood work done and it showed sodium 135, potassium 4.2, chloride 102, CO2 26, BUN 29, and creatinine 2.53. On arrival to the hospital, creatinine was 3.10, baseline creatinine level back in 2016 was 1.05. The patient has nonoliguric urine output and she is started on IV fluids. Review of Systems: The patient denies fever or chills. Physical Examination: Lungs: Clear to auscultation bilaterally. Heart: S1, S2. Abdomen: Soft, benign. Extremities: No edema. Impression And Plan: 1. Acute kidney injury. Renal ultrasound showed small-sized kidneys bilaterally. There is possible chronic kidney disease. Kidney sizes are smaller than average size. There is some prerenal azotemia due to diuretics. Continue IV fluids for hydration. Monitor fluid balance. Avoid LANA inhibitor. 2. Electrolytes are in stable range. There is no hyperkalemia. There is no acidosis. 3. Urinary tract infection. The patient was started on ciprofloxacin. Continue to re-evaluate. Adjust antibiotics to renal dose and adjust antibiotics according to urine culture. 4. Renal function has not improved significantly since yesterday. This may represent new baseline. Renal ultrasound is showing small size kidneys with some echogenicity. Please see report from Radiology. Renal ultrasound was done on July 17, right kidney size 8.4 cm in length, left kidney 9.0 cm in length. There is medical renal disease evident, but there is no obstructive uropathy and no hydronephrosis. I spent total 36 min including 26 min to coordinate care plan. ALEXANDER/JOE Voice ID: [id number] Report ID: [id number] ANGELA
[2017-07-19] MEDS: Meropenem 500 MG in NA CHLORIDE 0.9% 100 ML IV SCH ×2 (00:38→08:58)
[2017-07-19 01:47] LABS: Rheumatoid Factor NEG (NEG)
--- NOTE | 2017-07-19 02:25 | OP ---
Surgeon: Gordo Zuniga MD Procedure Performed: Esophagogastroduodenoscopy. Indication For Procedure: Suspected upper GI bleed, anemia. For full details, please refer to Dr. Marquis savage's consultation from yesterday. Plan For Anesthesia: Monitored anesthesia care. Complexity: Average. Technique: After obtaining informed consent from the patient and explaining risks and complications, which include, but are not limited to bleeding, infection, perforation and anesthesia complication. The patient was placed in a left lateral position and sedation was given. From then on, the scope w as advanced into the esophagus and carefully guided up till the second portion of the duodenum. No a ctive bleeding seen; however, stigmata of possible bleedings were treated. After the completion of e xamination, the scope and equipment were withdrawn and procedure terminated in a safe manner. Findings: Esophagus: No gross lesion seen in the upper and mid esophagus. In the distal esophagus, a circumferential area of squamous mucosa consistent with Murphy's seen. According to Cord class ification, this was C3M3. Biopsies were taken. Stomach: Mild patchy erythema seen in the body and moderate striped erythema seen in the antrum. Bio psies taken. Duodenum: In the bulb, a small nonbleeding angiodysplasia seen. The second portion appeared normal. Due to the anemia and angiodysplasia, decision was taken to ablate this lesion. It was ablated with APC with complete eradication. Impression: Murphy esophagus, gastritis, duodenal angiodysplasia. Plan: 1.Await pathology results. 2.Oral PPI b.i.d. 3.Follow up in the GI clinic in 1-2 weeks. US/MODL Voice ID: [id number] Report ID: [id number]
[2017-07-19 04:54] LABS: Absolute Lymphocytes (CBC) 1.3 K/uL (0.7-4.9); Absolute Monocytes 0.9 K/uL (0.1-1.3); Basophils % 1.2 % (0-1.3); Eosinophils % 3.2 % (0-4.4); Lymphocytes % 13.5 % (15.3-44.8); MCH 23.5 pg (27.0-35.0); MCV 74.4 fL (80-100); MPV 8.1 fL (7.6-11.3); Monocytes % 9.8 % (3.3-12.3); RBC Red Blood Cell Count 4.03 M/uL (3.86-4.86)
[2017-07-19 05:15] LABS: Albumin 3.2 g/dL (3.2-5.5); Phosphorus 3.8 mg/dL (2.5-4.3)
[2017-07-19] MEDS: NA CHLORIDE 0.9% 1,000 ML IV SCH (05:28)
[2017-07-19 06:46] LABS: UR CREAT 57.7 mg/dL; Urine Protein/Creatinine Ratio 0.14 (<0.15)
[2017-07-19] MEDS: ACETAMINOPHEN 500 MG TAB PO PRN (08:57)
[2017-07-19] MEDS: PANTOPRAZOLE 40 MG INJ IVP SCH (08:58)
[2017-07-19] MEDS: METOPROLOL TAR 25 MG TAB PO SCH (08:58)
[2017-07-19] MEDS ORDERED: HYDRALAZINE HCL 20 MG/ML VIAL IV PRN (11:00)
[2017-07-19] MEDS ORDERED: HYDROCODONE/APAP 5/325 MG TAB PO PRN (11:00)
--- NOTE | 2017-07-19 12:17 | RAD REPORT ---
EXAM DESCRIPTION: RAD - Chest Single View - 07/19/2017 12:08 pm CLINICAL HISTORY: Device placement PICC line placement COMPARISON: July 16, 2017 FINDINGS: A PICC line has been inserted with its tip in the junction of the superior vena cava and right atrium. The lungs appear clear of acute infiltrate. The heart is mildly enlarged IMPRESSION: PICC line with its tip in the junction of the superior vena cava and right atrium
--- NOTE | 2017-07-19 13:37 | PN ---
Date of Progress Note: 07/19/2017 Subjective: The patient seen and examined, chart reviewed, and case discussed with RN. The patient had EGD done yesterday, which showed some angiodysplasia. The patient has not had any blood in her i leostomy bag. Complaining of mild headache and pain overall in her joint today. Review of Systems: Negative except as above. Medications: Reviewed. Physical Examination: Vital Signs: Temperature 99.3, heart rate 64, blood pressure 201/79, respirations 16, and O2 95% on room air. General: Awake, alert, oriented x3. Elderly female, in some mild distress. CV: S1, S2. No murmurs. Regular rate and rhythm. Peripheral pulses present. Respiratory: Moving air well bilaterally. No wheezing. Gastrointestinal: Abdomen is soft, nontender, nondistended. Positive bowel sounds. Ileostomy in pl [place]. Extremities: No clubbing, cyanosis, edema. Neurologic: Nonfocal. Laboratory Data: Sodium 137, potassium 4, chloride 105, CO2 25, BUN 24, creatinine 2.21, glucose 84, calcium 8.7, and phosphorus 3.8. WBC 9.6, H and H 9.4, 30, and platelets 351. Rheumatoid factor is negative. Urine culture shows Proteus mirabilis, which is ESBL producing. Assessment And Plan: An 82-year-old female with; 1.Acute gastrointestinal bleed. The patient has Murphy's esophagus and duodenal angiodysplasia fou nd on EGD. Appreciate GI input. We will continue PPI. 2.Acute blood loss anemia, status post transfusion. Monitor H and H. 3.Acute kidney injury. Creatinine improved. We will continue to monitor. Continue IV fluids. Nep hrology on board. Avoid nephrotoxins and NSAIDs. 4.Urinary tract infection, acute cystitis without hematuria. Culture growing Proteus mirabilis with extended-spectrum beta-lactamase producing. Continue meropenem. The patient will need 4 weeks of I V meropenem. 5.Essential hypertension, uncontrolled this morning. We will add p.r.n. medications. 6.History of diverticulosis. 7.Coronary artery disease, [place] artery and [place] heart without angina, stable. 8.Hyperlipidemia, mixed. Continue statin. 9.Osteoporosis. Adjust pain medication. 10.Carotid artery stenosis. 11.Generalized anxiety disorder. 12.Gastroesophageal reflux disease. The patient has Murphy's esophagus. We will continue PPI. 13.Peripheral neuropathy. 14.History of lumbar spinal stenosis. Continue pain medications. 15.Gastrointestinal and deep venous thrombosis prophylaxis with PPI and SCDs. No chemical anticoagu lation due to gastrointestinal bleed. Plan: Discharge planning. Set up IV antibiotics at [facility]. /JOE Voice ID: [id number] Report ID: [id number]
--- NOTE | 2017-07-19 14:46 | DS ---
Date of Discharge: 07/19/2017 Consultants: Dr. Romo and Dr. Zuniga with GI and Dr. Hoffman and Dr. Morales with Nephrology. 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 Admitting Diagnoses: 1.Acute gastrointestinal bleed. 2.Acute anemia of blood loss. 3.Acute kidney injury. 4.Urinary tract infection. 5.Thrombocytosis. 6.Essential hypertension. 7.History of diverticulosis. 8.Coronary artery disease, e[place]gik artery and [place] heart without angina. 9.Hyperlipidemia. 10.Osteoporosis. 11.Carotid artery stenosis. 12.Generalized anxiety disorder. 13.Gastroesophageal reflux disease. 14.Peripheral neuropathy. 15.History of lumbar spinal stenosis. Discharge Diagnosis: 1.Acute blood loss anemia, status post transfusion, secondary to gastrointestinal bleed. 2.Acute gastrointestinal bleed secondary to gastritis, Murphy's esophagus, and duodenal angiodyspla hesham. Continue PPI. 3.Acute kidney injury, improving. The patient does have some chronicity to her kidney injury. 4.Urinary tract infection, acute cystitis without hematuria secondary to Proteus, extended-spectrum beta-lactamase producing, will be on meropenem for 4 weeks. 5.Essential hypertension. 6.History of diverticulosis. 7.Coronary artery disease, e[place] artery and [place] heart without angina. 8.Hyperlipidemia, statin. 9.Osteoporosis. 10.Carotid artery stenosis. 11.Generalized anxiety disorder. 12.Gastroesophageal reflux disease with Murphy's esophagus. 13.Peripheral neuropathy. 14.History of lumbar spinal stenosis. Hospital Course: The patient is an 82-year-old female from [facility], who came in due to abnormal labs. The patient was found to have a hemoglobin of 6.8. The patient was transfused. She also had elevated creatinine of 3.1, which is above her baseline. The patient was found to have some chronic kidney injury. Nephrology was consulted. She was started on IV fluids, which improved her creatini ne. The patient had EGD done, which showed Murphy's esophagus, gastritis, and duodenal dysplasia. The patient was continued on Protonix. GI was involved in the care of the patient. The patient then did not have any bleeding in her ileostomy. She was treated initially with Cipro for her UTI. Godfrey jose, her urine cultures returned ESBL producing Proteus. She was switched to meropenem. PICC line w as ordered and was placed. The patient was then cleared for discharge from performance improvement consultant's standpoint. Her hemoglobin remained stable. Did not need any further transfusions. The patient was then discha [facility]ged [facility] in a stable condition. Activity: Fall precautions. Diet: Renal. Followup: 1.Follow up with primary care physician in 1 week. 2.Follow up with spindle sander, Dr. Hoffman in 2 weeks. 3.Follow up with GI, Dr. Romo in 2 weeks. Return to ER for worsening condition. Medications: As per medication reconciliation list. Finish up a course of meropenem for a total of 4 weeks for ESBL producing Proteus. The patient will need repeat urine cultures after antibiotics ar e completed. Physical Examination: For physical Exam findings, please see progress note dictated on day of discharge. /JOE Voice ID: [id number] Report ID: [id number]
[2017-07-19] MEDS ORDERED: Meropenem 500 MG in NA CHLORIDE 0.9% 100 ML IV SCH (21:00)
[2017-07-21 21:53] LABS: Albumin, (SPE) 3.2 g/dL (3.8-4.8); Alpha-1-Globulins 0.4 g/dL (0.2-0.3); Alpha-2-Globulins 0.7 g/dL (0.5-0.9); Gamma Globulins 1.2 g/dL (0.8-1.7); INTERPRETATION REPORT
== END 2017-07-19 14:33 | DRG 812 ==
LOC: ER 08:50 → ERHOLD 09:53 → 2ND 13:58
PROVIDERS: ADMIT Internal Medicine; ATTEND Family Medicine
PROC: 30233N1 Transfusion of Nonautologous Red Blood Cells into Peripheral Vein, Percutaneous Approach (ICD-10-PCS; 2017-07-16)
PROC: 0DJ08ZZ Inspection of Upper Intestinal Tract, Via Natural or Artificial Opening Endoscopic (ICD-10-PCS; 2017-07-18)
PROC: 3E0G8GC Introduction of Other Therapeutic Substance into Upper GI, Via Natural or Artificial Opening Endoscopic (ICD-10-PCS; principal; 2017-07-18 14:45)
PROC: 02HV33Z Insertion of Infusion Device into Superior Vena Cava, Percutaneous Approach (ICD-10-PCS; 2017-07-19)
DX: D62 Acute posthemorrhagic anemia (principal); K92.2 Gastrointestinal hemorrhage, unspecified; N30.00 Acute cystitis without hematuria; N17.9 Acute kidney failure, unspecified; K22.719 Barrett's esophagus with dysplasia, unspecified; K29.70 Gastritis, unspecified, without bleeding; B96.4 Proteus (mirabilis) (morganii) as the cause of diseases classified elsewhere; K57.90 Diverticulosis of intestine, part unspecified, without perforation or abscess without bleeding; I25.10 Atherosclerotic heart disease of native coronary artery without angina pectoris; M81.0 Age-related osteoporosis without current pathological fracture; I65.29 Occlusion and stenosis of unspecified carotid artery; F41.1 Generalized anxiety disorder; K21.9 Gastro-esophageal reflux disease without esophagitis; G62.9 Polyneuropathy, unspecified; I12.9 Hypertensive chronic kidney disease with stage 1 through stage 4 chronic kidney disease, or unspecified chronic kidney disease; N18.9 Chronic kidney disease, unspecified
CPT/HCPCS: 36415; 71045; 76770; 80048; 80069; 80076; 81003; 81015; 82274; 82550; 82553; 82570; 82607; 82728; 82746; 83540; 83690; 83735; 83880; 83970; 84156; 84165; 84443; 84466; 84484; 85014; 85018; 85025; 85044; 85610; 85730; 86430; 86850; 86900; 86901; 87077; 87086; 87088; 87186; 88305; 88312; 88313; 93005; 94760; 96365; 96366; 96375; 99285; C9113; J0696; J0744; J2270; J7030; P9016

== ENCOUNTER 2017-10-26 15:14 | Emergency (ER) | payer OTHER ==
--- NOTE | 2017-10-26 16:11 | RAD REPORT ---
EXAM DESCRIPTION: CT - Pelvis Wo Cont - 10/26/2017 3:47 pm CLINICAL HISTORY: Bilateral hip pain COMPARISON: None. TECHNIQUE: Computed axial tomography of the pelvis was obtained All CT scans are performed using dose optimization technique as appropriate and may include automated exposure control or mA/KV adjustment according to patient size. 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 A right ventral hernia contains nondilated bowel. The neck measures 5 centimeters. 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
--- NOTE | 2017-10-26 16:29 | ER ---
Nurse's Notes [facility] Name: Jada Miranda Age: 82 yrs Sex: Female : 1935 Arrival Date: 10/26/2017 Time: 14:54 Bed 6 Private MD: Diagnosis: Pain in left hip Presentation: 10/26 14:54 Presenting complaint: EMS states: Pt from [facility], had x-ray taken due to c/o ph back pain and L femoral head fracture was discovered, pt denies fall or injury, pt ambulatory upon EMS arrival, denies hip pain at this time, only complaint is back pain (3/10). Transition of care: patient was not received from another setting of care. Onset of symptoms was October 26, 2017. Risk Assessment: Do you want to hurt yourself or someone else? Patient reports no desire to harm self or others. Initial Sepsis Screen: Does the patient meet any 2 criteria? No. Patient's initial sepsis screen is negative. Does the patient have a suspected source of infection? No. Patient's initial sepsis screen is negative. Care prior to arrival: None. 14:54 Method Of Arrival: EMS: [facility] ph 14:54 Acuity: DAVIDE 3 ph Historical: - Allergies: 15:01 Ceftin; ph 15:01 Codeine; ph 15:01 Enoxaparin; ph 15:01 Lovenox; ph 15:01 Plavix; ph 15:01 Warfarin; ph - Home Meds: 15:01 Actonel 35 mg Oral tab 1 tab once wkly [Active]; aspirin 81 mg Oral chew 1 tab once ph daily [Active]; ergocalciferol (vitamin D2) 50,000 unit Oral cap 1 cap once wkly [Active]; fexofenadine 30 mg Oral tab 1 tabs 2 times per day [Active]; Flonase 50 mcg/actuation Nasal spsn 2 sprays once daily [Active]; Imodium A-D 2 mg Oral tab 2 tabs [Active]; melatonin 3 mg Oral tab daily [Active]; metoprolol tartrate 12.5MG Oral tab 1 tab 2 times per day [Active]; Pepcid 20 mg Oral tab 1 tab 2 times per day [Active]; Vitamin D3 4,000 unit Oral cap [Active]; Zofran Oral for as needed [Active]; - PMHx: 15:01 "DIFFICULTY WALKING"; ANOREXIA-GETS DIETARY SUPPLEMENTS NEEDED; Anxiety; CANDIDAL ph STOMATITIS; Chronic pain; BACK?; Depression; Diverticulitis; GERD; Hypertension; diarrhea; insomnia; kidney disease; MUSCLE WEAKNESS; Nausea; vitamin d deficiency; Sinusitis; - PSHx: 15:01 Colostomy; ph - Immunization history:: Adult Immunizations up to date. - Social history:: Smoking status: Patient/guardian denies using tobacco. - Ebola Screening: : Ebola risk identified: . Screenin:26 Abuse screen: Denies threats or abuse. Nutritional screening: No deficits noted. la1 Tuberculosis screening: No symptoms or risk factors identified. Fall Risk No fall in past 12 months (0 pts). No secondary diagnosis (0 pts). No IV (0 pts). Ambulatory Aid- Crutches/Cane/Walker (15 pts). Gait- Weak (10 pts.). Mental Status- Oriented to own ability (0 pts). Total Ochoa Fall Scale indicates Low Risk Score (25-44 pts). Side Rails Up X 2. Assessment: 15:26 General: Appears in no apparent distress. Behavior is calm, cooperative. Pain: la1 Complains of pain in lumbar area, left low back and right low back. Neuro: Level of Consciousness is awake, alert, obeys commands, Oriented to person, place, time, situation, Ultrasound Technologist Sonographer are equal bilaterally Moves all extremities. Full function Gait is unsteady, Speech is normal, Facial symmetry appears normal. Cardiovascular: Capillary refill < 3 seconds Patient's skin is warm and dry. Respiratory: Airway is patent Respiratory effort is even, unlabored, Respiratory pattern is regular, symmetrical, Breath sounds are clear bilaterally. GI: Colostomy site Ostomy appliance is intact. : No signs and/or symptoms were reported regarding the genitourinary system. 16:39 Reassessment: Patient appears in no apparent distress at this time. No changes from me1 previously documented assessment. Patient and/or family updated on plan of care and expected duration. Pain level reassessed. 16:39 Reassessment: report called to [facility], stated they are arranging for me1 transport back to the facility. Vital Signs: 14:55 BP 124 / 51; Pulse 84; Resp 19; Temp 97.8(TE); Pulse Ox 93% on R/A; la1 17:10 BP 136 / 74; Pulse 71; Resp 16; Pulse Ox 97% on R/A; la1 ED Course: 14:54 Patient arrived in ED. ph 14:55 Edd Chang, RN is Primary Nurse. la1 14:57 Triage completed. ph 14:57 Red Peck NP is PHCP. pm1 14:57 Ervin Lagne MD is Attending Physician. pm1 15:26 Arm band placed on right wrist. la1 15:27 Bed in low position. Call light in reach. la1 15:47 CT Pelvis wo Cont In Process Unspecified. EDMS 17:09 No provider procedures requiring assistance completed. Patient did not have IV access la1 during this emergency room visit. Administered Medications: No medications were administered Outcome: 16:28 Discharge ordered by . pm1 17:09 Discharged to [facility]. la1 17:09 Condition: stable 17:09 Discharge instructions given to [facility], Instructed on discharge instructions, follow up and referral plans. medication usage, Demonstrated understanding of instructions, follow-up care. 17:10 Patient left the ED. la1 Signatures: Dispatcher [employer] EDMS Edd Chang, RAMON RN la1 Mirtha Esposito RN RN Red Peck NP SIGNAL TESTER pm1
--- NOTE | 2017-10-26 16:29 | EDPHYS ---
Physician Documentation [facility] Name: Jada Miranda Age: 82 yrs Sex: Female : 1935 Arrival Date: 10/26/2017 Time: 14:54 Bed 6 Private MD: ED Physician Ervin Lange HPI: 10/26 16:30 This 82 yrs old Female presents to ER via EMS with complaints of Hip Injury. pm1 16:30 This 82 yrs old Female presents to ER via EMS with complaints of Left Hip pm1 Pain. 16:30 The patient or guardian reports pain. that occurred at home, sustained from unknown pm1 reason, There is no obvious deformity, The patient is able to self ambulate. The patient is able to bear their full body weight. There is no radiation of the patient's discomfort. The complaints affect the left hip. Onset: The symptoms/episode began/occurred 1 week(s) ago. Modifying factors: The symptoms are alleviated by tramadol the symptoms are aggravated by nothing. Associated signs and symptoms: Pertinent negatives: abdominal pain, chest pain, dysuria, fever. Severity of symptoms: in the emergency department the symptoms have improved. Patient was complaining of right hip pain that has improved and then started having left hip pain. Right hip pain resolved. Patient lives in longterm and an X-ray of her hips was performed. Patient was initially told that her x-rays were negative, then she was told that she has a left femoral fracture. Patient is able to walk. No fall injury. Historical: - Allergies: 15:01 Ceftin; ph 15:01 Codeine; ph 15:01 Enoxaparin; ph 15:01 Lovenox; ph 15:01 Plavix; ph 15:01 Warfarin; ph - Home Meds: 15:01 Actonel 35 mg Oral tab 1 tab once wkly [Active]; aspirin 81 mg Oral chew 1 tab once ph daily [Active]; ergocalciferol (vitamin D2) 50,000 unit Oral cap 1 cap once wkly [Active]; fexofenadine 30 mg Oral tab 1 tabs 2 times per day [Active]; Flonase 50 mcg/actuation Nasal spsn 2 sprays once daily [Active]; Imodium A-D 2 mg Oral tab 2 tabs [Active]; melatonin 3 mg Oral tab daily [Active]; metoprolol tartrate 12.5MG Oral tab 1 tab 2 times per day [Active]; Pepcid 20 mg Oral tab 1 tab 2 times per day [Active]; Vitamin D3 4,000 unit Oral cap [Active]; Zofran Oral for as needed [Active]; - PMHx: 15:01 "DIFFICULTY WALKING"; ANOREXIA-GETS DIETARY SUPPLEMENTS NEEDED; Anxiety; CANDIDAL ph STOMATITIS; Chronic pain; BACK?; Depression; Diverticulitis; GERD; Hypertension; diarrhea; insomnia; kidney disease; MUSCLE WEAKNESS; Nausea; vitamin d deficiency; Sinusitis; - PSHx: 15:01 Colostomy; ph - Immunization history:: Adult Immunizations up to date. - Social history:: Smoking status: Patient/guardian denies using tobacco. - Ebola Screening: : Ebola risk identified: . ROS: 16:30 Constitutional: Negative for fever, chills, and weight loss, Eyes: Negative for injury, pm1 pain, redness, and discharge, ENT: Negative for injury, pain, and discharge, Neck: Negative for injury, pain, and swelling, Cardiovascular: Negative for chest pain, palpitations, and edema, Respiratory: Negative for shortness of breath, cough, wheezing, and pleuritic chest pain, Abdomen/GI: Negative for abdominal pain, nausea, vomiting, diarrhea, and constipation, Back: Negative for injury and pain. 16:30 Skin: Negative for injury, rash, and discoloration, Neuro: Negative for headache, weakness, numbness, tingling, and seizure. 16:30 MS/extremity: Positive for left hip pain, Negative for decreased range of motion, deformity. Exam: 16:30 Constitutional: This is a well developed, well nourished patient who is awake, alert, pm1 and in no acute distress. Head/Face: Normocephalic, atraumatic. Eyes: Pupils equal round and reactive to light, extra-ocular motions intact. Lids and lashes normal. Conjunctiva and sclera are non-icteric and not injected. Cornea within normal limits. Periorbital areas with no swelling, redness, or edema. ENT: Nares patent. No nasal discharge, no septal abnormalities noted. Tympanic membranes are normal and external auditory canals are clear. Oropharynx with no redness, swelling, or masses, exudates, or evidence of obstruction, uvula midline. Mucous membranes moist. Neck: Trachea midline, no thyromegaly or masses palpated, and no cervical lymphadenopathy. Supple, full range of motion without nuchal rigidity, or vertebral point tenderness. No Meningismus. Chest/axilla: Normal chest wall appearance and motion. Nontender with no deformity. No lesions are appreciated. Cardiovascular: Regular rate and rhythm with a normal S1 and S2. No gallops, murmurs, or rubs. Normal PMI, no JVD. No pulse deficits. Respiratory: Lungs have equal breath sounds bilaterally, clear to auscultation and percussion. No rales, rhonchi or wheezes noted. No increased work of breathing, no retractions or nasal flaring. Abdomen/GI: Soft, non-tender, with normal bowel sounds. No distension or tympany. No guarding or rebound. No evidence of tenderness throughout. Back: No spinal tenderness. No costovertebral tenderness. Full range of motion. Skin: Warm, dry with normal turgor. Normal color with no rashes, no lesions, and no evidence of cellulitis. 16:30 Musculoskeletal/extremity: Extremities: grossly normal except: noted in the left hip: tenderness, There is no evidence of decreased ROM, deformity. Vital Signs: 14:55 BP 124 / 51; Pulse 84; Resp 19; Temp 97.8(TE); Pulse Ox 93% on R/A; la1 17:10 BP 136 / 74; Pulse 71; Resp 16; Pulse Ox 97% on R/A; la1 MDM: 15:03 Patient medically screened. pm1 16:21 Data reviewed: vital signs. Counseling: I had a detailed discussion with the patient pm1 and/or guardian regarding: the historical points, exam findings, and any diagnostic results supporting the discharge/admit diagnosis, radiology results, the need for outpatient follow up, to return to the emergency department if symptoms worsen or persist or if there are any questions or concerns that arise at home. 10/26 15:09 Order name: CT Pelvis wo Cont; Complete Time: 16:21 pm1 Administered Medications: No medications were administered Disposition: 10/26/17 16:28 Discharged to Home. Impression: Pain in left hip. - Condition is Stable. - Discharge Instructions: Hip Pain. - Prescriptions for Tramadol 50 mg Oral Tablet - take 1 tablet by ORAL route every 8 hours as needed; 12 tablet. - Medication Reconciliation Form, Thank You Letter, Antibiotic Education, Prescription Opioid Use form. - Follow up: Private Physician; When: 2 - 3 days; Reason: Recheck today's complaints, Continuance of care, Re-evaluation by your physician. Follow up: Emergency Department; When: As needed; Reason: Worsening of condition. - Problem is new. - Symptoms have improved. Addendum: 10/28/2017 11:21 Co-signature as Attending Physician, Ervin Lange MD I agree with the assessment and w a plan of care. Signatures: Dispatcher [employer] EDMI Edd Chang RN RN la1 Mirtha Esposito RN RN Red Peck, PHARMACY CONSULTANT PHARMACY CONSULTANT pm1 Nazario, MD JEWEL Mueller [place] Corrections: (The following items were deleted from the chart) 10/26 16:03 15:16 Hip Left 2 View+RAD.RAD.BRZ ordered. [facility] EDMI 17:10 16:28 10/26/2017 16:28 Discharged to Home. Impression: Pain in left hip. Condition is la1 Stable. Forms are Medication Reconciliation Form, Thank You Letter, Antibiotic Education, Prescription Opioid Use. Follow up: Private Physician; When: 2 - 3 days; Reason: Recheck today's complaints, Continuance of care, Re-evaluation by your physician. Follow up: Emergency Department; When: As needed; Reason: Worsening of condition. Problem is new. Symptoms have improved. pm1
== END 2017-10-26 17:10 | disposition home or self-care (01) ==
LOC: ER 15:14
DX: M25.552 Pain in left hip (principal); F32.9 Major depressive disorder, single episode, unspecified; K21.9 Gastro-esophageal reflux disease without esophagitis; E55.9 Vitamin D deficiency, unspecified; I12.9 Hypertensive chronic kidney disease with stage 1 through stage 4 chronic kidney disease, or unspecified chronic kidney disease; N18.9 Chronic kidney disease, unspecified; Z93.3 Colostomy status; Z88.1 Allergy status to other antibiotic agents; Z88.5 Allergy status to narcotic agent; Z88.8 Allergy status to other drugs, medicaments and biological substances; Z79.82 Long term (current) use of aspirin
CPT/HCPCS: 72192; 99283

== ENCOUNTER 2019-03-04 14:25 | Inpatient (IN) | payer OTHER ==
[2019-03-04 15:36] LABS: Absolute Lymphocytes (CBC) 0.8 K/uL (0.7-4.9); Basophils % 0.3 % (0-1.3); Hematocrit 34.5 % (36.0-45.0); Lymphocytes % 6.4 % (15.3-44.8); MPV 9.5 fL (7.6-11.3); RBC Red Blood Cell Count 4.05 M/uL (3.86-4.86)
[2019-03-04 15:44] LABS: Protime INR 1.14
[2019-03-04 15:56] LABS: ALT/SGPT 16 U/L (12-78); AST/SGOT 18 U/L (15-37); Albumin 4.2 g/dL (3.4-5.0); Alkaline Phosphatase 90 U/L (45-117); BUN Blood Urea Nitrogen 130 mg/dL (7-18); Bicarbonate 15 mmol/L (21-32); Bilirubin Direct 0.2 mg/dL (0-0.2); Bilirubin Total 0.5 mg/dL (0.2-1.0); Glucose Level 113 mg/dL (74-106); Magnesium 2.2 mg/dL (1.8-2.4); NT PRO-BNP 1656 pg/mL (<450); Potassium 4.8 mmol/L (3.5-5.1); Protein, Total 9.1 g/dL (6.4-8.2); Sodium Level 129 mmol/L (136-145); Troponin (Emerg Dept Use Only) < 0.02 ng/mL (0.0-0.045)
--- NOTE | 2019-03-04 16:10 | RAD REPORT ---
EXAM DESCRIPTION: RAD - Chest Single View - 03/04/2019 3:06 pm CLINICAL HISTORY: Shortness of breath, hypertension COMPARISON: July 2017 TECHNIQUE: AP portable chest image was obtained 1504 hours . FINDINGS: No focal lung parenchymal process. Interstitial pattern matches comparison. PICC line has been removed since prior imaging. Heart and vasculature are normal. No measurable pleural effusion an d no pneumothorax. No acute bony abnormality seen. No acute aortic findings suspected. IMPRESSION: No acute cardiopulmonary process. No suspicious interval change.
[2019-03-04 16:32] LABS: Urine Blood 1+ (NEG); Urine Glucose NEGATIVE (NEG); Urine Protein NEGATIVE (NEG); Urine Specific Gravity 1.025 (1.005-1.030)
[2019-03-04 16:40] LABS: Urine Bacteria LOADED /HPF (<20); Urine Culture Reflex Order REFLEXED
--- NOTE | 2019-03-04 16:55 | ER ---
Nurse's Notes [facility] Name: Jada Miranda Age: 83 yrs Sex: Female : 1935 Arrival Date: 03/04/2019 Time: 14:29 Bed 7 Private MD: Diagnosis: Acute kidney failure;Urinary tract infection, site not specified Presentation: 03/04 14:29 Presenting complaint: EMS states: Routine labs this morning: NA 130, K 5.3, CO2 13, BUN hb 128, CREAT 7.89. Transition of care: patient was not received from another setting of care. Onset of symptoms was March 04, 2019. Risk Assessment: Do you want to hurt yourself or someone else? Patient reports no desire to harm self or others. Initial Sepsis Screen: Does the patient meet any 2 criteria? No. Patient's initial sepsis screen is negative. Does the patient have a suspected source of infection? No. Patient's initial sepsis screen is negative. Care prior to arrival: None. 14:29 Method Of Arrival: EMS: [facility] hb 14:29 Acuity: DAVIDE 3 hb Historical: - Allergies: 14:33 Ceftin; hb 14:33 Codeine; hb 14:33 Enoxaparin; hb 14:33 Lovenox; hb 14:33 Plavix; hb 14:33 Warfarin; hb - Home Meds: 14:33 Actonel 35 mg Oral tab 1 tab once wkly [Active]; aspirin 81 mg Oral chew 1 tab once hb daily [Active]; ergocalciferol (vitamin D2) 50,000 unit Oral cap 1 cap once wkly [Active]; fexofenadine 30 mg Oral tab 1 tabs 2 times per day [Active]; Flonase 50 mcg/actuation Nasal spsn 2 sprays once daily [Active]; Imodium A-D 2 mg Oral tab 2 tabs [Active]; melatonin 3 mg Oral tab daily [Active]; metoprolol tartrate 12.5MG Oral tab 1 tab 2 times per day [Active]; Pepcid 20 mg Oral tab 1 tab 2 times per day [Active]; Vitamin D3 4,000 unit Oral cap [Active]; Zofran Oral for as needed [Active]; - PMHx: 14:33 Depression; Hypertension; diarrhea; insomnia; GERD; kidney disease; Chronic pain; hb BACK?; MUSCLE WEAKNESS; Diverticulitis; CANDIDAL STOMATITIS; "DIFFICULTY WALKING"; ANOREXIA-GETS DIETARY SUPPLEMENTS NEEDED; Nausea; Anxiety; Sinusitis; vitamin d deficiency; - PSHx: 14:33 Colostomy; hb - Immunization history:: Adult Immunizations up to date. - Social history:: Smoking status: Patient/guardian denies using tobacco. - Ebola Screening: : No symptoms or risks identified at this time. Screenin:36 Abuse screen: Denies threats or abuse. Denies injuries from another. Nutritional hb screening: No deficits noted. Tuberculosis screening: No symptoms or risk factors identified. Fall Risk None identified. Assessment: 14:30 General: Appears in no apparent distress. Behavior is calm, cooperative. Pain: Denies hb pain. Neuro: Level of Consciousness is awake, alert, obeys commands, Oriented to person, place, time, situation. Cardiovascular: Heart tones S1 S2 present Capillary refill < 3 seconds Patient's skin is warm and dry. Respiratory: Airway is patent Respiratory effort is even, unlabored, Respiratory pattern is regular, symmetrical, Breath sounds are clear bilaterally. GI: No signs and/or symptoms were reported involving the gastrointestinal system. : No signs and/or symptoms were reported regarding the genitourinary system. EENT: No signs and/or symptoms were reported regarding the EENT system. Derm: Skin is pink, warm \\T\\ dry. Musculoskeletal: No signs and/or symptoms reported regarding the musculoskeletal system. 15:30 Reassessment: Patient appears in no apparent distress at this time. Patient and/or hb family updated on plan of care and expected duration. Pain level reassessed. Patient is alert, oriented x 3, equal unlabored respirations, skin warm/dry/pink. 16:30 Reassessment: Patient appears in no apparent distress at this time. Patient and/or hb family updated on plan of care and expected duration. Pain level reassessed. Patient is alert, oriented x 3, equal unlabored respirations, skin warm/dry/pink. 17:14 Reassessment: Patient appears in no apparent distress at this time. No changes from jl7 previously documented assessment. Patient and/or family updated on plan of care and expected duration. Pain level reassessed. Patient is alert, oriented x 3, equal unlabored respirations, skin warm/dry/pink. Patient denies pain at this time. 18:00 Reassessment: Patient appears in no apparent distress at this time. Patient and/or hb family updated on plan of care and expected duration. Pain level reassessed. Patient is alert, oriented x 3, equal unlabored respirations, skin warm/dry/pink. 18:14 Reassessment: Attempted to call report to floor, receiving nurse unavailable at this hb time. Vital Signs: 14:33 BP 124 / 72; Pulse 102; Resp 18; Temp 98.2; Pulse Ox 96% on R/A; Weight 60.78 kg; hb Height 5 ft. 1 in. (154.94 cm); Pain 0/10; 15:30 BP 126 / 76; Pulse 187; Resp 15; Pulse Ox 98% on R/A; Pain 0/10; hb 16:30 BP 109 / 63; Pulse 89; Resp 17; Pulse Ox 100% on R/A; Pain 0/10; hb 17:14 BP 118 / 65; Pulse 85; Resp 14 S; Pulse Ox 97% on R/A; jl7 18:15 BP 107 / 92; Pulse 84; Resp 15; Temp 97.9; Pulse Ox 97% on R/A; Pain 0/10; hb 14:33 Body Mass Index 25.32 (60.78 kg, 154.94 cm) hb ED Course: 14:29 Patient arrived in ED. hb 14:31 Triage completed. hb 14:32 [facility] kb 14:32 Abhay Cristobal MD is Attending Physician. kb 14:33 Arm band placed on. hb 14:36 Patient has correct armband on for positive identification. Bed in low position. Call light in reach. Side rails up X 1. 14:45 Sameera Parry, RN is Primary Nurse. hb 15:05 XRAY Chest (1 view) In Process Unspecified. EDMS 15:27 Inserted saline lock: 24 gauge in right forearm, using aseptic technique. ,using sv aseptic technique. diffusics Blood collected. Flushed right forearm with 5 ml normal saline. 15:39 EKG done, by ED staff, reviewed by Juana GUERRA. em1 16:21 Straight cath inserted, using sterile technique, 16 Fr. Specimen obtained. Returned jl7 cloudy urine. Patient tolerated well. 16:54 Prezas, Francisco, DO is Hospitalizing Provider. kb 18:39 No provider procedures requiring assistance completed. Patient admitted, IV remains in jl7 place. intact, No redness/swelling at site. Administered Medications: 17:25 Drug: Meropenem 1 grams Route: IV; Rate: calculated rate; Site: right forearm; jl7 18:05 Follow up: IV Status: Completed infusion; IV Intake: 100ml hb 18:15 Follow up: Response: No adverse reaction hb 17:25 Drug: NS 0.9% 1000 ml Route: IV; Rate: 1000 ml; Site: right forearm; jl7 18:40 Follow up: Response: No adverse reaction; IV Status: Completed infusion; IV Intake: hb 1000ml 18:36 Drug: traMADol 50 mg Route: PO; jl7 18:50 Follow up: Response: Medication administered at discharge. hb Intake: 18:05 IV: 100ml; Total: 100ml. hb 18:40 IV: 1000ml; Total: 1100ml. hb Outcome: 16:54 Decision to Hospitalize by Provider. kb 18:39 Admitted to Tele accompanied by tech, via stretcher, room 201, with chart. jl7 18:39 Condition: stable 18:39 Discharge instructions given to patient, family, Instructed on the need for admit, Demonstrated understanding of instructions. 19:13 Patient left the ED. hb Signatures: Dispatcher [employer] EDJuana Quintero, CARTON WRAPPER-C CARTON WRAPPER-CkTeena Chowdhury, RN Jero Moore em1 Sameera Parry RN RN hb Leal, Jahala, RN RN 7
--- NOTE | 2019-03-04 16:56 | EDPHYS ---
Physician Documentation [facility] Name: Jada Miranda Age: 83 yrs Sex: Female : 1935 Arrival Date: 03/04/2019 Time: 14:29 Bed 7 Private MD: ED Physician Abhay Cristobal HPI: 03/04 15:07 This 83 yrs old Female presents to ER via EMS with complaints of Abnormal Lab kb Results. 15:07 Pt reports she had routine blood work done and was told that her creatinine was high kb and something else was low so she needed to come to the ER for evaluation. Pt reports weakness for about a week and chronic low back pain. Onset: The symptoms/episode began/occurred today. Severity of symptoms: At their worst the symptoms were moderate in the emergency department the symptoms are unchanged. The patient has not experienced similar symptoms in the past. The patient has not recently seen a physician. Historical: - Allergies: 14:33 Ceftin; hb 14:33 Codeine; hb 14:33 Enoxaparin; hb 14:33 Lovenox; hb 14:33 Plavix; hb 14:33 Warfarin; hb - Home Meds: 14:33 Actonel 35 mg Oral tab 1 tab once wkly [Active]; aspirin 81 mg Oral chew 1 tab once hb daily [Active]; ergocalciferol (vitamin D2) 50,000 unit Oral cap 1 cap once wkly [Active]; fexofenadine 30 mg Oral tab 1 tabs 2 times per day [Active]; Flonase 50 mcg/actuation Nasal spsn 2 sprays once daily [Active]; Imodium A-D 2 mg Oral tab 2 tabs [Active]; melatonin 3 mg Oral tab daily [Active]; metoprolol tartrate 12.5MG Oral tab 1 tab 2 times per day [Active]; Pepcid 20 mg Oral tab 1 tab 2 times per day [Active]; Vitamin D3 4,000 unit Oral cap [Active]; Zofran Oral for as needed [Active]; - PMHx: 14:33 Depression; Hypertension; diarrhea; insomnia; GERD; kidney disease; Chronic pain; hb BACK?; MUSCLE WEAKNESS; Diverticulitis; CANDIDAL STOMATITIS; "DIFFICULTY WALKING"; ANOREXIA-GETS DIETARY SUPPLEMENTS NEEDED; Nausea; Anxiety; Sinusitis; vitamin d deficiency; - PSHx: 14:33 Colostomy; hb - Immunization history:: Adult Immunizations up to date. - Social history:: Smoking status: Patient/guardian denies using tobacco. - Ebola Screening: : No symptoms or risks identified at this time. ROS: 15:05 Constitutional: Negative for fever, chills, and weight loss, Neck: Negative for injury, kb pain, and swelling, Cardiovascular: Negative for chest pain, palpitations, and edema, Respiratory: Negative for shortness of breath, cough, wheezing, and pleuritic chest pain, Abdomen/GI: Negative for abdominal pain, nausea, vomiting, diarrhea, and constipation, : Negative for injury, bleeding, discharge, and swelling, MS/Extremity: Negative for injury and deformity, Skin: Negative for injury, rash, and discoloration. 15:05 Back: Positive for pain at rest, pain with movement, of the low back area. 15:05 Neuro: Positive for weakness. Exam: 15:05 Constitutional: This is a well developed, well nourished patient who is awake, alert, kb and in no acute distress. Head/Face: Normocephalic, atraumatic. ENT: Nares patent. No nasal discharge, no septal abnormalities noted. Tympanic membranes are normal and external auditory canals are clear. Oropharynx with no redness, swelling, or masses, exudates, or evidence of obstruction, uvula midline. Mucous membranes moist. Neck: Trachea midline, no thyromegaly or masses palpated, and no cervical lymphadenopathy. Supple, full range of motion without nuchal rigidity, or vertebral point tenderness. No Meningismus. Chest/axilla: Normal chest wall appearance and motion. Nontender with no deformity. No lesions are appreciated. Cardiovascular: Regular rate and rhythm with a normal S1 and S2. No gallops, murmurs, or rubs. Normal PMI, no JVD. No pulse deficits. Respiratory: Lungs have equal breath sounds bilaterally, clear to auscultation and percussion. No rales, rhonchi or wheezes noted. No increased work of breathing, no retractions or nasal flaring. Abdomen/GI: Soft, non-tender, with normal bowel sounds. No distension or tympany. No guarding or rebound. No evidence of tenderness throughout. Skin: Warm, dry with normal turgor. Normal color with no rashes, no lesions, and no evidence of cellulitis. MS/ Extremity: Pulses equal, no cyanosis. Neurovascular intact. Full, normal range of motion. Neuro: Awake and alert, GCS 15, oriented to person, place, time, and situation. Cranial nerves II-XII grossly intact. Motor strength 5/5 in all extremities. Sensory grossly intact. Cerebellar exam normal. Normal gait. 15:05 Back: pain, that is mild, of the low back area. Vital Signs: 14:33 BP 124 / 72; Pulse 102; Resp 18; Temp 98.2; Pulse Ox 96% on R/A; Weight 60.78 kg; hb Height 5 ft. 1 in. (154.94 cm); Pain 0/10; 15:30 BP 126 / 76; Pulse 187; Resp 15; Pulse Ox 98% on R/A; Pain 0/10; hb 16:30 BP 109 / 63; Pulse 89; Resp 17; Pulse Ox 100% on R/A; Pain 0/10; hb 17:14 BP 118 / 65; Pulse 85; Resp 14 S; Pulse Ox 97% on R/A; jl7 18:15 BP 107 / 92; Pulse 84; Resp 15; Temp 97.9; Pulse Ox 97% on R/A; Pain 0/10; hb 14:33 Body Mass Index 25.32 (60.78 kg, 154.94 cm) hb MDM: 14:32 Patient medically screened. kb 15:04 Data reviewed: vital signs, nurses notes. Data interpreted: Pulse oximetry: on room air kb is 96 %. Interpretation: normal. 16:53 Counseling: I had a detailed discussion with the patient and/or guardian regarding: the kb historical points, exam findings, and any diagnostic results supporting the discharge/admit diagnosis, lab results, radiology results, the need for further work-up and treatment in the hospital. Physician consultation: Francisco Cat DO was contacted at 16:53, regarding admission, to the medical/surgical unit. patient's condition, and will see patient in ED, shortly. 03/04 14:43 Order name: Basic Metabolic Panel; Complete Time: 16:05 kb 03/04 14:43 Order name: CBC with Diff kb 03/04 14:43 Order name: LFT's; Complete Time: 16:05 kb 03/04 14:43 Order name: Magnesium; Complete Time: 16:05 kb 03/04 14:43 Order name: NT PRO-BNP; Complete Time: 16:05 kb 03/04 14:43 Order name: PT-INR; Complete Time: 15:51 kb 03/04 14:43 Order name: Troponin (emerg Dept Use Only); Complete Time: 16:05 kb 03/04 14:43 Order name: XRAY Chest (1 view); Complete Time: 16:13 kb 03/04 16:19 Order name: Urine Microscopic Only; Complete Time: 16:42 kb 03/04 16:21 Order name: Urine Dipstick--Ancillary (enter results); Complete Time: 16:35 bd 03/04 16:42 Order name: Urine Culture EDPA 03/04 17:06 Order name: Procalcitonin kb 03/04 17:06 Order name: Lactate kb 03/04 17:57 Order name: CBC Smear Scan EDPA 03/04 14:43 Order name: EKG; Complete Time: 14:45 kb 03/04 14:43 Order name: Cardiac monitoring; Complete Time: 15:30 kb 03/04 14:43 Order name: EKG - Nurse/Tech; Complete Time: 15:30 kb 03/04 14:43 Order name: IV Saline Lock; Complete Time: 15:30 kb 03/04 14:43 Order name: Labs collected and sent; Complete Time: 15:30 kb 03/04 14:43 Order name: O2 Per Protocol; Complete Time: 15:30 kb 03/04 14:43 Order name: O2 Sat Monitoring; Complete Time: 15:30 kb 03/04 16:08 Order name: Urine Dipstick-Ancillary (obtain specimen); Complete Time: 16:21 kb Administered Medications: 17:25 Drug: Meropenem 1 grams Route: IV; Rate: calculated rate; Site: right forearm; jl7 18:05 Follow up: IV Status: Completed infusion; IV Intake: 100ml hb 18:15 Follow up: Response: No adverse reaction hb 17:25 Drug: NS 0.9% 1000 ml Route: IV; Rate: 1000 ml; Site: right forearm; jl7 18:40 Follow up: Response: No adverse reaction; IV Status: Completed infusion; IV Intake: hb 1000ml 18:36 Drug: traMADol 50 mg Route: PO; jl7 18:50 Follow up: Response: Medication administered at discharge. hb Disposition: 03/04/19 16:54 Hospitalization ordered by Francisco Cat for Inpatient Admission. Preliminary diagnosis are Acute kidney failure, Urinary tract infection, site not specified. - Bed requested for Telemetry/MedSurg (Inpatient). - Status is Inpatient Admission. hb - Condition is Stable. - Problem is new. - Symptoms are unchanged. UTI on Admission? Yes Addendum: 03/15/2019 21:33 Co-signature as Attending Physician, Abhay Cristobal MD. m a2 Signatures: Dispatcher [employer] EDMS Juana Loera, SETTER MACHINE-C SETTER MACHINE-Ckb Jyoti Aggarwal Diana, RN RN dw Sameera Parry, RN RN Dayton Hall, RN RN jl7 Abhay Cristobal MD MD ma2 Corrections: (The following items were deleted from the chart) 03/04 18:05 16:54 Hospitalization Ordered by Francisco Cat DO for Inpatient Admission. Preliminary dw diagnosis is Acute kidney failure; Urinary tract infection, site not specified. Bed requested for Telemetry/MedSurg (Inpatient). Status is Inpatient Admission. Condition is Stable. Problem is new. Symptoms are unchanged. UTI on Admission? Yes. kb 18:15 18:05 03/04/2019 16:54 Hospitalization Ordered by Francisco Cat DO for Inpatient bd Admission. Preliminary diagnosis is Acute kidney failure; Urinary tract infection, site not specified. Bed requested for Telemetry/MedSurg (Inpatient). Status is Inpatient Admission. Condition is Stable. Problem is new. Symptoms are unchanged. UTI on Admission? Yes. dw 19:13 18:15 03/04/2019 16:54 Hospitalization Ordered by Francisco Cat DO for Inpatient hb Admission. Preliminary diagnosis is Acute kidney failure; Urinary tract infection, site not specified. Bed requested for Telemetry/MedSurg (Inpatient). Status is Inpatient Admission. Condition is Stable. Problem is new. Symptoms are unchanged. UTI on Admission? Yes. bd
[2019-03-04] MEDS ORDERED: NA CHLORIDE 0.9% 1,000 ML ONE (17:19)
[2019-03-04] MEDS ORDERED: Meropenem 1 GM/100 ML BAG ONE (17:20)
--- NOTE | 2019-03-04 17:22 | P.HP ---
Certification for Inpatient Patient admitted to: Inpatient With expected LOS: >2 Midnights Patient will require the following post-hospital care: Other (Back to shelter) Practitioner: I am a practitioner with admitting privileges, knowledge of patient current condition, hospital course, and medical plan of care. Services: Services provided to patient in accordance with Admission requirements found in Title 42 Section 412.3 of the Code of Federal Regulations Patient History Date of Service: 03/04/19 Primary Care Provider: custodial physician; Nephrology=Dr. Hoffman; GI-Dr. Zuniga Reason for admission: Back pain, abnormal lab History of Present Illness: 83-year-old female with history of GERD, CAD, hyperlipidemia, and chronic renal disease stage IV. Patient had routine lab today. Patient found to have elevated white count and worsening renal failure. Over the past several days patient also was been reporting increased fatigue and back pain. She denies any fever, chills. She denies any nausea, vomiting. She denies any constipation or diarrhea. She was sent to the ER from the shelter for further evaluation. In the ER patient evaluated. Patient was afebrile. Blood pressure 109/33. Heart rate 82. On lab white count 12.1, hemoglobin 10.9. Platelet count 278. Neutrophils 87. Sodium 129, potassium 4.8. Bicarb 15, BUN of 130, creatinine 9.16 with a GFR 4. Glucose 113. Troponin unremarkable. Chest x-ray unremarkable. Urinalysis showed bacteria. Patient with prior history of resistant bacteria. Patient admitted for further evaluation and treatment. Patient given IV fluids in the emergency room and started on antibiotic therapy. When I saw the patient ER, she appeared comfortable. She did not appear septic. Patient appropriate at this time. Allergies cefuroxime [From Ceftin] Allergy (Verified 07/16/17 19:01) Unknown clopidogrel [From Plavix] Allergy (Verified 07/16/17 19:01) Unknown enoxaparin Allergy (Verified 06/14/15 12:01) Hives warfarin Allergy (Verified 06/14/15 12:01) Hives codeine Adverse Reaction (Mild, Verified 07/17/17 10:05) Unknown Home medications list reviewed: Yes Home Medications: Ondansetron HCl [Zofran] 4 mg PO Q6HR PRN 06/14/15 Acetaminophen 2 tab PO Q6HR PRN 07/26/15 Magnesium Oxide [Mag 0X*] 400 mg PO BID 07/26/15 Metoprolol Tartrate [Lopressor*] 25 mg PO BID 07/26/15 Loperamide [Imodium*] 2 mg PO TID cap 08/05/15 Meropenem [Merrem 500 MG/100 ML NS IVPB] 500 mg IV Q8HR #1 bag 07/19/17 Pantoprazole [Protonix Tab*] 40 mg PO BID #60 tab 07/19/17 - Past Medical/Surgical History Diabetic: No -: History of diverticulitis/Status post colostomy -: CAD -: Hyperlipidemia -: History of recurrent UTI -: GERD -: History GI bleed -: Colostomy -: Sigmoid Colon resection -: Fistula removed apr 28 2015 Psychosocial/ Personal History: Patient lives at the shelter. She has been there for over 4 years. - Family History Mother -: Cancer (Colon cancer) Notes: Colon CA Sister Notes: Aneurysm - Social History Smoking Status: Never smoker Alcohol use: No CD- Drugs: No Caffeine use: Yes Place of Residence: [place] Review of Systems General: Weakness, As per HPI Eyes: Unremarkable ENT: Unremarkable Respiratory: Unremarkable Cardiovascular: Unremarkable Gastrointestinal: Unremarkable Genitourinary: As per HPI Musculoskeletal: Back Pain, As per HPI Integumentary: Unremarkable Neurological: Unremarkable Lymphatics: Unremarkable Physical Examination - Physical Exam General: Alert, In no apparent distress, Oriented x3, Cooperative HEENT: Atraumatic, Normocephalic, Other (Dry mucous membranes) Neck: Supple, No Thyromegaly Respiratory: Clear to auscultation bilaterally, Normal air movement Cardiovascular: Normal pulses, Regular rate/rhythm Gastrointestinal: Normal bowel sounds, Soft and benign, Non-distended, No ascites, No tenderness, No masses, No rebound, No guarding Musculoskeletal: No erythema, No tenderness, No warmth Integumentary: No tenderness/swelling, No erythema, No warmth, No cyanosis, Other (Dry skin) Neurological: Normal speech, Normal strength at 5/5 x4 extr, Normal tone, Normal affect Lymphatics: No axilla or inguinal lymphadenopathy - Studies Laboratory Data (last 24 hrs) 03/04/19 15:24: PT 13.4 H, INR 1.14 03/04/19 15:24: WBC 12.1 H, Hgb 10.9 L, Hct 34.5 L, Plt Count 278 03/04/19 15:24: Sodium 129 L, Potassium 4.8, BUN 130 H, Creatinine 9.16 H*, Glucose 113 H, Magnesium 2.2, Total Bilirubin 0.5, AST 18, ALT 16, Alkaline Phosphatase 90 Assessment and Plan - Plan Impression: Fatigue, back pain secondary to recurrent UTI 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 Previous UTI admission reviewed. Patient was on IV meropenem. Therefore will start IV meropenem at this time. Will give IV fluid bolus and continue IV fluid hydration. Will obtain blood cultures and urine cultures. Will consult Nephrology to further evaluate. Will check renal ultrasound. Will continue monitor electrolytes closely. Will provide SCD for DVT prophylaxis as the patient is not able tolerate Lovenox. Will continue monitor closely. Advanced directives address with patient. Patient is DNR. Anticipate discharge once clinically stable likely in the next 3-5 days. Acute on chronic renal failure stage 5 with hyponatremia and dehydration: Will start IV fluids. Will obtain renal ultrasound. Will consult Nephrology to further assess. If this continues to worsen patient may require dialysis. Will monitor closely. History of diverticulitis/fistula now with colostomy: Continue with colostomy care. GERD with history of GI bleed: Will start Protonix. Anemia of chronic disease: Will monitor blood count closely. Will obtain iron and B12 studies. Hyperlipidemia: Continue medication. Discharge Plan: [place] Plan to discharge in: Greater than 2 days - Advance Directives Does patient have a Living Will: Yes Does patient have a Durable POA for Healthcare: Yes - Code Status/Comfort Care Code Status Assessed: Yes (Patient is DNR) Time Spent Managing Pts Care (In Minutes): 55
[2019-03-04 17:56] LABS: Urine White Blood Cell Casts OK
[2019-03-04 17:57] LABS: Anisocytosis 1+; Blood Morphology Comment NOTED (NOT SEEN); Platelet Estimate ADEQ
[2019-03-04] MEDS ORDERED: ONDANSETRON 4 MG/2 ML VIAL ONE (18:32)
[2019-03-04] MEDS ORDERED: MORPHINE 4 MG/ML SYR ONE (18:32)
[2019-03-04] MEDS ORDERED: TRAMADOL HCL 50 MG TAB ONE (18:35)
[2019-03-04] MEDS ORDERED: ONDANSETRON 4 MG/2 ML VIAL IV PRN (19:38)
[2019-03-04] MEDS ORDERED: Meropenem 1000 MG/VIAL IV SCH (21:00)
[2019-03-04] MEDS: NA CHLORIDE 0.9% 1,000 ML IV SCH (21:10)
[2019-03-04 21:53] VITALS: BMI 22.6
[2019-03-04 22:05] LABS: Ferritin 78.4 ng/mL (8-388)
[2019-03-04] MEDS: TRAMADOL HCL 50 MG TAB PO PRN (22:07)
[2019-03-05] MEDS: NA CHLORIDE 0.9% 1,000 ML IV SCH ×3 (05:15→16:45)
[2019-03-05] MEDS: PANTOPRAZOLE 40MG TABLET PO SCH (05:16)
[2019-03-05 05:49] LABS: Basophils % 0.3 % (0-1.3); Hematocrit 28.5 % (36.0-45.0); Lymphocytes % 9.7 % (15.3-44.8); MPV 9.5 fL (7.6-11.3); RBC Red Blood Cell Count 3.33 M/uL (3.86-4.86)
[2019-03-05 06:04] LABS: Magnesium 2.1 mg/dL (1.8-2.4)
[2019-03-05] MEDS: cilostazoL 100 MG TAB PO SCH ×2 (08:52→21:00)
[2019-03-05] MEDS: SODIUM BICARB 325 MG TAB PO SCH ×2 (08:52→21:31)
--- NOTE | 2019-03-05 09:53 | RAD REPORT ---
EXAM DESCRIPTION: US - Renal Ultrasound-Complete - 03/05/2019 9:40 am CLINICAL HISTORY: Chronic renal failure COMPARISON: Renal ultrasound July 2017 FINDINGS: The right kidney measures approximately 9 x 3 x 4 cm. The left kidney measures approximat klaus 10 x 5 x 4 cm. Renal cortical thickness is normal. Echogenicity is increased consistent with library monitor jason renal disease history. No hydronephrosis or suspicious renal mass. A small 8-10 mm hypoechoic mas s lateral right kidney is believed to be a small cyst not clearly different from 2018. Mostly contracted bladder shows no suspicious finding. IMPRESSION: No hydronephrosis or suspicious renal mass. Medical renal disease is evident.
[2019-03-05] MEDS: TRAMADOL HCL 50 MG TAB PO PRN ×2 (10:19→21:31)
--- NOTE | 2019-03-05 13:54 | P.PN ---
Subjective Date of Service: 03/05/19 Primary Care Provider: [facility] physician; Nephrology=Dr. Hoffman; GI-Dr. Zuniga Chief Complaint: Back pain, abnormal lab Subjective: Improving, Doing well Physical Examination - Vital Signs Temperature: 97 F Blood Pressure: 95/46 Pulse: 77 Respirations: 18 Pulse Ox (%): 95 - Physical Exam General: Alert, In no apparent distress HEENT: Atraumatic Neck: Supple Respiratory: Clear to auscultation bilaterally, Normal air movement Cardiovascular: Normal pulses, Regular rate/rhythm Gastrointestinal: No tenderness, No masses, No rebound, No guarding Integumentary: Other (Patient appears better hydrated) - Studies Laboratory Data (last 24 hrs) 03/04/19 15:24: PT 13.4 H, INR 1.14 03/04/19 15:24: WBC 12.1 H, Hgb 10.9 L, Hct 34.5 L, Plt Count 278 03/04/19 15:24: Sodium 129 L, Potassium 4.8, BUN 130 H, Creatinine 9.16 H*, Glucose 113 H, Magnesium 2.2, Total Bilirubin 0.5, AST 18, ALT 16, Alkaline Phosphatase 90 Medications List Reviewed: Yes Assessment & Plan Discharge Plan: Jail Plan to discharge in: Greater than 2 days Physician Review Additional Text: Impression: Fatigue, back pain secondary to recurrent UTI 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 Await urine and blood culture results. Continue IV fluid hydration. Patient on SCD for DVT prophylaxis. Case discussed with nephrology. Patient may require dialysis if renal function continues to decline. Case discussed in detail with patient. Patient does not want dialysis in the future. Will continue to monitor closely. Acute on chronic renal failure stage 5 with hyponatremia and dehydration: Continue IV fluids. Patient does not want dialysis in the future if required Will discuss further with nephrology. History of diverticulitis/fistula now with colostomy: Continue with colostomy care. GERD with history of GI bleed: Continue with medication. Anemia of chronic disease: Will monitor blood count closely. Hyperlipidemia: Continue medication. Time Spent Managing Pts Care (In Minutes): 55
[2019-03-05] MEDS: Meropenem 500 MG in NA CHLORIDE 0.9% 100 ML IV SCH (16:46)
[2019-03-05] MEDS ORDERED: Meropenem 1 GM/100 ML BAG IV SCH (17:30)
[2019-03-05] MEDS ORDERED: CILOSTAZOL 50 MG PO SCH (21:00)
--- NOTE | 2019-03-05 22:28 | P.CNS ---
Date of Consult: 03/05/19 Reason for Consult: LEANDRO Primary Care Provider: [facility] physician; Nephrology=Dr. Hoffman; GI-Dr. Zuniga Chief Complaint: Back pain, abnormal lab History of Present Illness: An 83 Y/o woman with PMhx of HTN, PVD, CAD ,CKD IV, chronic backpain on Tramadol, and recurrent UTI on Ceftin pt was admiited for weakness and abnormal labs pt on takes NSAID ocaasionally for chronic pain, she was started on ceftin for chronic UTI, she is allergic to cefuroxime \ pt denied nausea, vomiting , diarrhea , chest pain or palpitation Allergies cefuroxime [From Ceftin] Allergy (Verified 03/04/19 21:52) Unknown clopidogrel [From Plavix] Allergy (Verified 03/04/19 21:52) Unknown enoxaparin Allergy (Verified 03/04/19 21:52) Hives warfarin Allergy (Verified 03/04/19 21:52) Hives codeine Adverse Reaction (Mild, Verified 03/04/19 21:52) Unknown Home medications list reviewed: Yes Home Medications: Acetaminophen [Tylenol] 650 mg PO Q8HP 03/04/19 Azelastine [Astelin 137MCG/[employer]ered [place]] 1 sprays NS BIDP PRN 03/04/19 Cetirizine HCl [Zyrtec] 10 mg PO DAILY 03/04/19 Cilostazol 50 mg PO BID 03/04/19 Diclofenac Sodium [Voltaren] 1 appl TP QIDP PRN 03/04/19 Fexofenadine HCl [Anjana Allergy] 60 mg PO Q12HP PRN 03/04/19 Furosemide [Lasix] 20 mg PO DAILY 03/04/19 Gabapentin [Neurontin] 100 mg PO BEDTIME 03/04/19 Hydrocortisone Cream [Hydrocortisone 1% Cream] 1 appl TOP TID PRN 03/04/19 Ipratropium/Albuterol Sulfate [Iprat-Albut 0.5-3(2.5) mg/3 ml] 3 ml IH Q6HP PRN 03/04/19 Loperamide HCl [Imodium A-D] 2 tab PO TIDP PRN 03/04/19 Magnesium Gluconate 27.5 mg PO BID 03/04/19 Pantoprazole Sodium [Protonix] 40 mg PO DAILY 03/04/19 Tizanidine HCl [Zanaflex] 2 mg PO DAILYPRN PRN 03/04/19 Tramadol HCl [Ultram] 1 - 2 tab PO Q6HP PRN 03/04/19 - Past Medical/Surgical History Diabetic: No -: History of diverticulitis/Status post colostomy -: CAD -: Hyperlipidemia -: History of recurrent UTI -: GERD -: History GI bleed -: Colostomy -: Sigmoid Colon resection -: Fistula removed apr 28 2015 Psychosocial/ Personal History: Patient lives at the residential. She has been there for over 4 years. - Family History Mother Medical History: Cancer Notes: Colon CA Sister Notes: Aneurysm - Social History Alcohol use: No CD- Drugs: No Caffeine use: Yes Place of Residence: Care Home Review of Systems General: Weakness Eyes: As per HPI ENT: Unremarkable Respiratory: Unremarkable Cardiovascular: Unremarkable Gastrointestinal: Unremarkable Genitourinary: Unremarkable Musculoskeletal: Back Pain Integumentary: Unremarkable Physical Examination Temp Pulse Resp BP Pulse Ox 97.8 F 78 18 103/44 L 93 03/05/19 20:00 03/05/19 20:00 03/05/19 21:31 03/05/19 20:00 03/05/19 21:31 General: In no apparent distress, Oriented x3 HEENT: Atraumatic Neck: Supple, JVD not distended Respiratory: Clear to auscultation bilaterally, Normal air movement Cardiovascular: No edema, Normal pulses, Regular rate/rhythm, Normal S1 S2, No gallops, No rubs, No murmurs Gastrointestinal: Normal bowel sounds, Soft and benign, Non-distended, No ascites, No tenderness, No masses Musculoskeletal: No clubbing, No swelling, No erythema, No tenderness Integumentary: No rashes, No breakdown Conclusions/Impression: LEANDRO on CKD IV vs progressive CKD IV US no hydro Cr slightly improving LEANDRO possibly due to AIN from Abx +/- NSAID cont IVF renal dose meds no need for urgent renal replacement therapy at this time, also pt is so hesitatnt about starting dialysis if no improvement in RFT then pt will need to initiate HD HAGMA cont sodium bicarb Hyponatremia likely depletional improved on NS UTI started on Merrem F/U cultures
[2019-03-06] MEDS: NA CHLORIDE 0.9% 1,000 ML IV SCH ×4 (01:38→21:00)
[2019-03-06] MEDS: PANTOPRAZOLE 40MG TABLET PO SCH (05:21)
[2019-03-06 06:03] LABS: Absolute Lymphocytes (CBC) 0.7 K/uL (0.7-4.9); Basophils % 0.4 % (0-1.3); Hematocrit 25.9 % (36.0-45.0); Lymphocytes % 10.3 % (15.3-44.8); MPV 9.4 fL (7.6-11.3); RBC Red Blood Cell Count 2.99 M/uL (3.86-4.86)
[2019-03-06 06:16] LABS: Magnesium 1.8 mg/dL (1.8-2.4); Potassium 4.7 mmol/L (3.5-5.1)
[2019-03-06] MEDS ORDERED: MAGNESIUM SULFATE 1 gm IVPB 1 GM/100 ML BAG IV ONE (09:00)
[2019-03-06] MEDS: cilostazoL 100 MG TAB PO SCH ×3 (09:00→19:59)
[2019-03-06] MEDS: SODIUM BICARB 325 MG TAB PO SCH ×2 (10:13→20:00)
[2019-03-06] MEDS: MUPIROCIN 2% OINT 22GM TUBE TOP SCH ×2 (11:36→21:00)
[2019-03-06 12:30] LABS: Hematocrit 27.8 % (36.0-45.0)
[2019-03-06] MEDS: Meropenem 500 MG in NA CHLORIDE 0.9% 100 ML IV SCH (16:17)
--- NOTE | 2019-03-06 18:22 | P.PN ---
Subjective Date of Service: 03/06/19 Primary Care Provider: long term physician; Nephrology=Dr. Hoffman; GI-Dr. Zuniga Chief Complaint: Back pain, abnormal lab Subjective: Improving, Doing well Physical Examination - Vital Signs Temperature: 97.7 F Blood Pressure: 124/60 Pulse: 79 Respirations: 19 Pulse Ox (%): 98 - Physical Exam General: Alert, In no apparent distress, Oriented x3, Cooperative HEENT: Atraumatic Neck: Supple Respiratory: Clear to auscultation bilaterally, Normal air movement Cardiovascular: Normal pulses, Regular rate/rhythm Gastrointestinal: Normal bowel sounds, Soft and benign, Non-distended Neurological: Normal speech, Normal strength at 5/5 x4 extr, Normal tone - Studies Medications List Reviewed: Yes Assessment & Plan Discharge Plan: Jail Plan to discharge in: 24 Hours Physician Review Additional Text: Impression: Fatigue, back pain secondary to recurrent UTI 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 Patient has done well. Await urine and blood culture results. Will adjust IV fluids. Patient on SCD for DVT prophylaxis. Case discussed with nephrology. Patient may require dialysis if renal function continues to decline. Case discussed in detail with patient. Patient does not want dialysis in the future. Will continue to monitor closely. Acute on chronic renal failure stage 5 with hyponatremia and dehydration: Continue IV fluids. Patient does not want dialysis in the future if required Will discuss further with nephrology. History of diverticulitis/fistula now with colostomy: Continue with colostomy care. GERD with history of GI bleed: Continue with medication. Anemia of chronic disease: Will monitor blood count closely. Hyperlipidemia: Continue medication. Time Spent Managing Pts Care (In Minutes): 55
[2019-03-06] MEDS: TRAMADOL HCL 50 MG TAB PO PRN (19:58)
--- NOTE | 2019-03-06 20:43 | P.PN ---
Subjective Date of Service: 03/08/19 Primary Care Provider: group home physician; Nephrology=Dr. Hoffman; GI-Dr. Zuniga Chief Complaint: Back pain, abnormal lab Subjective: Improving Subjective Pt with CKD IV, admitted for abnormal labs was of ceftin for chronic UTI Today Cr cont to improve will reduce IVF rate Hb dropped , likely dilutional will start on epogen and IV iron f/u urine for eosinophils Physical Examination General: In no apparent distress, Oriented x3 HEENT: Atraumatic Neck: Supple, JVD not distended Respiratory: Clear to auscultation bilaterally, Normal air movement Cardiovascular: No edema, Normal pulses, Regular rate/rhythm, Normal S1 S2, No gallops, No rubs, No murmurs Gastrointestinal: Normal bowel sounds, Soft and benign, Non-distended, No ascites, No tenderness, No masses Musculoskeletal: No clubbing, No swelling, No erythema, No tenderness Integumentary: No rashes, No breakdown Conclusions/Impression: LEANDRO on CKD IV vs progressive CKD IV likely due to dehydration US no hydro Cr slightly improving LEANDRO possibly due to AIN from Abx +/- NSAID cont IVF renal dose meds no need for urgent renal replacement therapy at this time, acute on chronic anemia likely dilutional will start IV iron and epogen HAGMA cont sodium bicarb Hyponatremia likely depletional resolved UTI started on Merrem F/U cultures Physical Examination - Vital Signs Temperature: 97.7 F Blood Pressure: 124/60 Pulse: 79 Respirations: 19 Pulse Ox (%): 98 - Studies Medications List Reviewed: Yes
[2019-03-06] MEDS ORDERED: EPOETIN 4,000 UNIT/ML VIAL IV SCH (20:45)
[2019-03-07] MEDS: GABAPENTIN 100 MG CAP PO PRN ×2 (01:16→23:48)
[2019-03-07] MEDS: TRAMADOL HCL 50 MG TAB PO PRN ×3 (03:26→20:44)
[2019-03-07 06:01] LABS: Potassium 4.6 mmol/L (3.5-5.1)
[2019-03-07 06:04] LABS: Absolute Lymphocytes (CBC) 0.9 K/uL (0.7-4.9); Basophils % 1.2 % (0-1.3); Hematocrit 23.7 % (36.0-45.0); Lymphocytes % 14.5 % (15.3-44.8); MPV 9.5 fL (7.6-11.3); RBC Red Blood Cell Count 2.77 M/uL (3.86-4.86)
[2019-03-07] MEDS: PANTOPRAZOLE 40MG TABLET PO SCH (06:04)
[2019-03-07] MEDS: NA CHLORIDE 0.9% 1,000 ML IV SCH (07:36)
[2019-03-07] MEDS: MUPIROCIN 2% OINT 22GM TUBE TOP SCH ×2 (09:00→21:00)
[2019-03-07] MEDS: cilostazoL 100 MG TAB PO SCH ×2 (10:00→20:44)
[2019-03-07] MEDS: SODIUM BICARB 325 MG TAB PO SCH ×2 (10:03→20:43)
[2019-03-07] MEDS: SOD FERRIC GLUC COMPLX/SUCROSE 125 MG in NA CHLORIDE 0.9% 100 ML IV SCH (10:04)
[2019-03-07] MEDS ORDERED: EPOETIN ALFA-EPBX 10,000 UNIT/ML VIAL SQ SCH (11:00)
[2019-03-07 11:28] LABS: Hematocrit 23.2 % (36.0-45.0)
--- NOTE | 2019-03-07 14:04 | P.PN ---
Subjective Date of Service: 03/07/19 Primary Care Provider: [facility]; Nephrology=Dr. Hoffman; GI-Dr. Zuniga Chief Complaint: Back pain, abnormal lab Subjective: Other (Patient stable this time. Patient feels weak.) Physical Examination - Vital Signs Temperature: 98.1 F Blood Pressure: 125/60 Pulse: 84 Respirations: 18 Pulse Ox (%): 96 - Physical Exam General: Alert, In no apparent distress, Cooperative HEENT: Atraumatic Neck: Supple Respiratory: Clear to auscultation bilaterally Cardiovascular: Normal pulses, Regular rate/rhythm Gastrointestinal: Normal bowel sounds, Soft and benign, Non-distended, No tenderness, No masses, No rebound, No guarding Integumentary: No tenderness/swelling, No erythema, No warmth, No cyanosis Neurological: Normal speech, Normal strength at 5/5 x4 extr, Normal tone - Studies Microbiology Data (last 24 hrs): 03/04/19 16:20 Clean Catch Urine [place] Count - Final >100,000 CFU/ML. 03/04/19 16:20 Clean Catch Urine - Final MIXED MAKENZIE. 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 Await culture results. Nephrology has adjusted IV fluids. Patient anemic. Will provide blood. Maintain hemoglobin above 8.0. Continue to monitor closely. Patient does not want future dialysis. Renal function slowly improving. Acute on chronic renal failure stage 5 with hyponatremia and dehydration: Continue IV fluids. Nephrology has adjusted fluids. Patient does not want dialysis in the future if required Will discuss further with nephrology. History of diverticulitis/fistula now with colostomy: Continue with colostomy care. GERD with history of GI bleed: Continue with medication. Anemia of chronic disease: Will transfuse 1 unit of blood to maintain hemoglobin above 8.0. Will continue monitor closely. Hyperlipidemia: Continue medication. Time Spent Managing Pts Care (In Minutes): 55
[2019-03-07] MEDS ORDERED: FUROSEMIDE 20 MG/ 2ML VIAL IV ONE (14:46)
[2019-03-07] MEDS: NACHLORIDE 0.45% 1,000 ML IV SCH (15:00)
[2019-03-07 15:23] LABS: Hematocrit 25.4 % (36.0-45.0)
[2019-03-07] MEDS: Meropenem 500 MG in NA CHLORIDE 0.9% 100 ML IV SCH (17:00)
[2019-03-07] MEDS ORDERED: NA CHLORIDE 0.9% 250 ML ONE (20:04)
[2019-03-07 21:37] LABS: HBsAG Nonreactive (Nonreactive)
[2019-03-08] MEDS: MUPIROCIN 2% OINT 22GM TUBE TOP SCH ×3 (00:02→20:56)
[2019-03-08 01:28] LABS: Hematocrit 34.6 % (36.0-45.0)
--- NOTE | 2019-03-08 03:20 | PN ---
Date of Progress Note: 03/07/2019 Chief Complaint: Acute on chronic kidney injury. The patient has advanced chronic kidney disease st age 3. She was admitted for elevated azotemia. She has had history of recurrent urinary tract infec tion and was started on antibiotics. Patient was started on Epogen and IV iron for severe anemia. H emoglobin likely drop secondary to dilutional or effect of IV fluids. Patient was started on IV flui ds to treat acute kidney injury. Patient presented to the hospital with volume depletion. Ultrasoun d did not show hydronephrosis. Creatinine level and BUN have improved somewhat over last 24 hours. Patient is on renal dose antibiotics for urinary tract infection. Review of Systems: Denies fever, chills. Physical Examination: Lungs: Clear to auscultation bilaterally. Heart: S1, S2. Abdomen: Soft, benign. Extremities: No edema. Laboratory Data: Sodium 135, potassium 4.9, chloride 119, CO2 18, BUN 88, creatinine 4.96, calcium 7 .9. Impression And Plan: 1.Acute on chronic kidney injury. BUN is improving from 127 to 88. 2.Metabolic acidosis. Patient is on IV fluids, bicarbonate improved from 14 to 18. 3.Patient will continue IV fluids. Monitor electrolytes closely. 4.Patient is refusing dialysis. 5.Urinary tract infection. Continue antibiotics and check urine culture. Adjust antibiotics as nee ded. EB/MODL Voice ID: [id number] Report ID: [id number]
[2019-03-08] MEDS: TRAMADOL HCL 50 MG TAB PO PRN ×3 (05:34→22:00)
[2019-03-08 06:20] LABS: Magnesium 1.7 mg/dL (1.8-2.4); Potassium 4.3 mmol/L (3.5-5.1)
[2019-03-08 06:22] LABS: Basophils % 0.9 % (0-1.3); Hematocrit 31.4 % (36.0-45.0); Lymphocytes % 13.9 % (15.3-44.8); MPV 9.1 fL (7.6-11.3); RBC Red Blood Cell Count 3.64 M/uL (3.86-4.86)
[2019-03-08] MEDS: SOD FERRIC GLUC COMPLX/SUCROSE 125 MG in NA CHLORIDE 0.9% 100 ML IV SCH (08:19)
[2019-03-08] MEDS: SODIUM BICARB 325 MG TAB PO SCH ×2 (08:20→19:54)
[2019-03-08] MEDS: cilostazoL 100 MG TAB PO SCH ×2 (08:20→20:11)
[2019-03-08] MEDS: PANTOPRAZOLE 40MG TABLET PO SCH (08:20)
[2019-03-08] MEDS ORDERED: MAGNESIUM SULFATE 1 gm IVPB 1 GM/100 ML BAG IV ONE (09:00)
--- NOTE | 2019-03-08 11:11 | P.PN ---
Subjective Date of Service: 03/08/19 Primary Care Provider: [facility] physician; Nephrology=Dr. Hoffman; GI-Dr. Zuniga Chief Complaint: Back pain, abnormal lab Subjective: Improving Physical Examination - Vital Signs Temperature: 98.0 F Blood Pressure: 180/84 Pulse: 91 Respirations: 18 Pulse Ox (%): 95 - Physical Exam General: Alert, In no apparent distress, Cooperative HEENT: Atraumatic Neck: Supple Respiratory: Clear to auscultation bilaterally, Normal air movement Cardiovascular: Normal pulses, Regular rate/rhythm Gastrointestinal: Normal bowel sounds, Soft and benign, Non-distended Neurological: Normal speech, Normal strength at 5/5 x4 extr, Normal tone - Studies Microbiology Data (last 24 hrs): 03/04/19 16:20 Clean Catch Urine [place] Count - Final >100,000 CFU/ML. 03/04/19 16:20 Clean Catch Urine - Final MIXED MAKENZIE. Medications List Reviewed: Yes Assessment & Plan Discharge Plan: Halfway Plan to discharge in: 48 Hours Physician Review Additional Text: Impression: Fatigue, back pain secondary to recurrent UTI Acute on chronic renal failure stage 5 with hyponatremia and dehydration History of diverticulitis/fistula now with colostomy GERD with history of GI bleed Anemia of chronic disease Hyperlipidemia Plan: Fatigue, back pain secondary to recurrent UTI: Continue with IV antibiotic therapy. Await culture results. Nephrology has adjusted IV fluids. Anemic and received 1 unit of blood yesterday. Continue to monitor closely. Patient does not want future dialysis. Anticipate improvement over the next 1-2 days with possible discharge at that time. Patient may need broad-spectrum antibiotic to cover for infection since urine culture may be unreliable. I will turn the service over to the hospital team tomorrow. I will go the plan of care with him. Acute on chronic renal failure stage 5 with hyponatremia and dehydration: Continue IV fluids. Nephrology continues to adjust fluids. Patient does not want dialysis in the future if required Will discuss further with nephrology. Renal function improved. History of diverticulitis/fistula now with colostomy: Continue with colostomy care. GERD with history of GI bleed: Continue with medication. Anemia of chronic disease: Patient received transfusion yesterday. Continue to monitor closely. May need to further transfuse if hemoglobin drops below 8.0. Hyperlipidemia: Continue medication. Time Spent Managing Pts Care (In Minutes): 55
[2019-03-08] MEDS: NACHLORIDE 0.45% 1,000 ML IV SCH (12:48)
[2019-03-08] MEDS: Meropenem 500 MG in NA CHLORIDE 0.9% 100 ML IV SCH (17:17)
[2019-03-08] MEDS: GABAPENTIN 100 MG CAP PO PRN (22:34)
--- NOTE | 2019-03-08 23:53 | PN ---
Date of Progress Note: 03/08/2019 Chief Complaint: Chronic kidney disease, acute kidney injury. History: Chronic kidney disease accelerated by severe acute kidney injury with prerenal azotemia. B UN was up to 120 and creatinine level is gradually improving, remains elevated and GFR has declined. Patient although has some response to IV fluids, bicarbonate improved. She was treated with bicarbo niurka replacement. Metabolic acidosis has improved. Patient refused dialysis. Review of Systems: Patient denies fevers or chills. Physical Examination: Lungs: Clear to auscultation bilaterally. Heart: S1, S2. Abdomen: Soft, benign, nontender. Extremities: No edema. Impression And Plan: 1.Acute on chronic kidney injury. Continue IV fluids as tolerated. 2.Metabolic acidosis. Evaluate renal panel in a.m. 3.Volume depletion. Patient is tolerating IV fluids. Continue current treatment. 4.Urinary tract infection, continue antibiotics and adjust treatment according to urine culture. EB/MODL Voice ID: [id number] Report ID: [id number]
[2019-03-09] MEDS: ACETAMINOPHEN 500 MG TAB PO PRN ×2 (04:14→21:33)
[2019-03-09 05:57] LABS: Absolute Lymphocytes (CBC) 1.2 K/uL (0.7-4.9); Basophils % 0.5 % (0-1.3); Hematocrit 30.9 % (36.0-45.0); Lymphocytes % 14.1 % (15.3-44.8); MPV 8.9 fL (7.6-11.3)
[2019-03-09 06:02] LABS: Magnesium 1.8 mg/dL (1.8-2.4); Potassium 4.1 mmol/L (3.5-5.1)
[2019-03-09] MEDS: NACHLORIDE 0.45% 1,000 ML IV SCH (06:57)
[2019-03-09] MEDS: SOD FERRIC GLUC COMPLX/SUCROSE 125 MG in NA CHLORIDE 0.9% 100 ML IV SCH (08:49)
[2019-03-09] MEDS: SODIUM BICARB 325 MG TAB PO SCH ×2 (08:53→20:16)
[2019-03-09] MEDS: cilostazoL 100 MG TAB PO SCH ×2 (08:53→20:16)
[2019-03-09] MEDS: PANTOPRAZOLE 40MG TABLET PO SCH (08:54)
[2019-03-09] MEDS: MUPIROCIN 2% OINT 22GM TUBE TOP SCH ×2 (08:56→20:13)
[2019-03-09] MEDS: MAGNESIUM SULFATE 1 gm IVPB 1 GM/100 ML BAG IV ONE ×2 (08:57→13:12)
[2019-03-09] MEDS: TRAMADOL HCL 50 MG TAB PO PRN ×2 (09:00→18:04)
--- NOTE | 2019-03-09 11:50 | P.PN ---
Subjective Date of Service: 03/09/19 Primary Care Provider: [facility] physician; Nephrology=Dr. Hoffman; GI-Dr. Zuniga Chief Complaint: Back pain, abnormal lab Patient is complaining of feeling fatigued. Otherwise coronal no acute events Overnite. She denies dysuria and fever at this time. Review of Systems Genitourinary: Dysuria (Patient denies any dysuria or frequency.), Frequency Physical Examination - Vital Signs Temperature: 98.3 F Blood Pressure: 168/71 Pulse: 81 Respirations: 18 Pulse Ox (%): 95 - Physical Exam General: In no apparent distress (In no acute distress. Lethargic and slightly frail) HEENT: Atraumatic (Head atraumatic, normocephalic. Pupils equal and reactive to light. EOMI), Normocephalic Respiratory: Normal air movement (Good air entry bilaterally. No wheezing or crackles heard.) Cardiovascular: No edema (Systolic ejection murmur heard. Regular rate. Bilateral bruit renal artery.) Gastrointestinal: Normal bowel sounds (Normal bowel sounds. Abdomen soft, nontender, nondistended. 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 Urine culture yielded more than 100,000 colony-forming units finalize as mixed ana. Patient again encourage to improve mobility status by ambulating as tolerated. Acute on chronic renal failure stage 5 with hyponatremia and dehydration: Previously was treated with IV fluid infusion with noted improvement of renal function and sodium levels. Will defer to Nephrology for IV fluid management History of diverticulitis/fistula now with colostomy: Stoma viable and functional with liquid stool in the bag. GERD with history of GI bleed: Continue oral pantoprazole Anemia of chronic disease: Last transfused on 03/07 for a hemoglobin of 7.7. It responded appropriately. Today's hemoglobin is 10.1. Continue monitor Hyperlipidemia: Checking for lipid profile today. Will treat if indicated.
[2019-03-09] MEDS: Meropenem 500 MG in NA CHLORIDE 0.9% 100 ML IV SCH ×2 (13:12→20:15)
[2019-03-09] MEDS: GABAPENTIN 100 MG CAP PO PRN (20:16)
[2019-03-09] MEDS: ENSURE ENLIVE 237 ML CAN PO SCH (20:17)
--- NOTE | 2019-03-09 23:30 | PN ---
Date of Progress Note: 03/09/2019 Chief Complaint: Acute on chronic kidney injury. The patient has advanced chronic kidney disease. She developed accelerated kidney failure, acute kidney injury secondary to prerenal azotemia. She is responding to IV fluids. Renal function has improved and patient has history of anemia due to chronic kidney disease and was started on Epogen and IV iron. So, severe anemia. Review of Systems: Denies PND, orthopnea. Physical Examination: Lungs: Clear to auscultation bilaterally. Heart: S1, S2. Abdomen: Soft benign. Extremities: No edema. Impression And Plan: 1. Acute on chronic kidney injury. Renal function has improved. Patient has metabolic acidosis, improving with IV fluids. Continue bicarbonate tablet as needed. 2. Volume depletion. Continue IV fluids. Advance p.o. intake. 3. Patient refuses dialysis. 4. Urinary tract infection. Continue antibiotics. ALEXANDER/JOE Voice ID: [id number] Report ID: [id number] ANGELA
[2019-03-10] MEDS: TRAMADOL HCL 50 MG TAB PO PRN ×2 (01:38→08:50)
[2019-03-10] MEDS: NACHLORIDE 0.45% 1,000 ML IV SCH (03:00)
[2019-03-10] MEDS: ACETAMINOPHEN 500 MG TAB PO PRN ×2 (04:34→13:38)
[2019-03-10 05:44] LABS: Absolute Lymphocytes (CBC) 1.3 K/uL (0.7-4.9); Basophils % 0.5 % (0-1.3); Hematocrit 30.7 % (36.0-45.0); MPV 8.7 fL (7.6-11.3); RBC Red Blood Cell Count 3.58 M/uL (3.86-4.86)
[2019-03-10 06:01] LABS: Magnesium 1.7 mg/dL (1.8-2.4); Potassium 3.9 mmol/L (3.5-5.1)
[2019-03-10] MEDS ORDERED: Magnesium Sulfate 2gm IVPB 2 G/50 ML BAG IV ONE (07:12)
[2019-03-10] MEDS: PANTOPRAZOLE 40MG TABLET PO SCH (08:49)
[2019-03-10] MEDS: cilostazoL 100 MG TAB PO SCH (08:49)
[2019-03-10] MEDS: SODIUM BICARB 325 MG TAB PO SCH (08:49)
[2019-03-10] MEDS: ENSURE ENLIVE 237 ML CAN PO SCH (08:51)
[2019-03-10] MEDS: Meropenem 500 MG in NA CHLORIDE 0.9% 100 ML IV SCH (08:51)
[2019-03-10] MEDS: MUPIROCIN 2% OINT 22GM TUBE TOP SCH (08:51)
[2019-03-10] MEDS ORDERED: MAGNESIUM SULFATE 1 gm IVPB 1 GM/100 ML BAG IV ONE (09:00)
[2019-03-10] MEDS ORDERED: LIDOCAINE 4% PATCH TOP SCH (09:00)
[2019-03-10] MEDS ORDERED: POTASSIUM CL SA 10 MEQ TAB PO ONE (09:00)
[2019-03-10] MEDS ORDERED: Ringers Lactate 1,000 ML IV SCH (11:00)
[2019-03-10] MEDS: SOD FERRIC GLUC COMPLX/SUCROSE 125 MG in NA CHLORIDE 0.9% 100 ML IV SCH (11:28)
[2019-03-10 12:21] VITALS: TEMP 98.4
--- NOTE | 2019-03-10 13:16 | PN ---
Date of Progress Note: 03/10/2019 Subjective: The patient was admitted with acute kidney injury. Creatinine was up to 9 secondary to prerenal dehydration. Patient was started on aggressive hydration, creatinine down to 2.3. The candice ent is more awake. Objective: Vital Signs: Blood pressure 166/67, pulse of 82, afebrile. Patient had good urine outpu t of 1800, still have significant diarrhea of 1100. Chest: Clear to auscultation. Heart: S1, S2. Systolic murmur. Abdomen: Mild tenderness. No guarding. Extremities: No edema. Laboratory Data: Sodium 146, potassium 3.9, bicarb 23, BUN 45, creatinine 2.3, GFR up to 20, calcium 8.3, magnesium 1.7. Urinalysis; rbc's 20, wbc's numerous to count. Hepatitis panel was negative. Renal ultrasound did not show any obstruction. Normal size kidney 11/11. Current Medications: The patient on include: 1.Epogen. 2.Meropenem. 3.IV iron. 4.Pletal. 5.Gabapentin. 6.Sodium bicarb oral. 7.Normal saline 50 per hour. 8.Magnesium sulfate. 9.Tramadol. 10.KCl. Assessment And Plan: 1.Acute kidney injury secondary to prerenal on the recovery phase, looked to me normal volume. I am going to go ahead and discontinue IV fluid for the time being. We will continue to monitor the candice ent. 2.Hypokalemia, hypomagnesemia. I agree with supplement. 3.Urinary tract infection, culture mixed ana. Patient on meropenem, dose appropriate. We will co ntinue follow up with the primary. 4.Acidosis secondary to renal failure/GI loss corrected. Continue current dose of sodium bicarb. W e will switch IV fluid to LR. 5.Iron-deficiency anemia. Continue IV iron. Continue SAQIB. 6.Deconditioning. Continue PT/OT. SONALI/MODL Voice ID: [id number] Report ID: [id number]
--- NOTE | 2019-03-10 14:33 | P.DS ---
Admission Date: 03/04/19 Discharge Date: 03/10/19 Primary Care Provider: custodial physician; Nephrology=Dr. Hoffman; GI-Dr. Zuniga Disposition: ROUTINE DISCHARGE Discharge Condition: GOOD Reason for Admission: Back pain, abnormal lab Brief History of Present Illness: The patient is a 83-year-old female with a known past medical history of CKD stage 3 who was admitted to the hospital with urinary tract infection and acute on chronic kidney disease. Her most dominating symptoms was lower back pain especially on the left side. Hospital Course: Patient presented with a creatinine count of 6.7. She was placed upon continues IV fluids. Additional workup revealed evidence of urinary tract infection. Her urine culture showed more than 100,000 colony-forming units which were finalized as mixed ana. In the meantime she continued to improve with empiric treatment which included IV fluid infusion and antibiotics. Her renal function improved and her creatinine level was 2.34 at the time of discharge. This is her baseline. She will be discharged to follow up with cut press operator Dr. Morales in 2 weeks Vital Signs/Physical Exam: Temp Pulse Resp BP Pulse Ox 98.4 F 92 H 18 168/73 H 94 03/10/19 12:00 03/10/19 12:00 03/10/19 12:00 03/10/19 12:00 03/10/19 12:00 General: Alert, In no apparent distress, Cooperative HEENT: Atraumatic, Normocephalic, EOMI Respiratory: Clear to auscultation bilaterally, Normal air movement Cardiovascular: Systolic murmur Gastrointestinal: Normal bowel sounds, Soft and benign, Other (Colostomy bag in place with stoma viable and functional) Integumentary: Warmth Neurological: Normal speech, Normal affect External genitalia: No edema Laboratory Data at Discharge: WBC 9.8 K/uL (4.3-10.9) D 03/10/19 05:10 Hgb 10.2 g/dL (12.0-15.0) L 03/10/19 05:10 Hct 30.7 % (36.0-45.0) L 03/10/19 05:10 Plt Count 271 K/uL (152-406) 03/10/19 05:10 PT 13.4 SECONDS (9.5-12.5) H 03/04/19 15:24 INR 1.14 03/04/19 15:24 Sodium 146 mmol/L (136-145) H 03/10/19 05:10 Potassium 3.9 mmol/L (3.5-5.1) 03/10/19 05:10 BUN 45 mg/dL (7-18) H 03/10/19 05:10 Creatinine 2.30 mg/dL (0.55-1.3) H 03/10/19 05:10 Glucose 73 mg/dL (74-106) L 03/10/19 05:10 Magnesium 1.7 mg/dL (1.8-2.4) L 03/10/19 05:10 Total Bilirubin 0.5 mg/dL (0.2-1.0) 03/04/19 15:24 AST 18 U/L (15-37) 03/04/19 15:24 ALT 16 U/L (12-78) 03/04/19 15:24 Alkaline Phosphatase 90 U/L (45-117) 03/04/19 15:24 Triglycerides 64 mg/dL (<150) 03/09/19 05:28 Cholesterol 110 mg/dL (<200) 03/09/19 05:28 HDL Cholesterol 58 mg/dL (40-60) 03/09/19 05:28 Cholesterol/HDL Ratio 1.90 03/09/19 05:28 Home Medications: Acetaminophen [Tylenol] 650 mg PO Q8HP 03/04/19 Azelastine [Astelin 137MCG/Metered [place]] 1 sprays NS BIDP PRN 03/04/19 Cetirizine HCl [Zyrtec] 10 mg PO DAILY 03/04/19 Cilostazol 50 mg PO BID 03/04/19 Diclofenac Sodium [Voltaren] 1 appl TP QIDP PRN 03/04/19 Fexofenadine HCl [Anjana Allergy] 60 mg PO Q12HP PRN 03/04/19 Furosemide [Lasix] 20 mg PO DAILY 03/04/19 Gabapentin [Neurontin] 100 mg PO BEDTIME 03/04/19 Hydrocortisone Cream [Hydrocortisone 1% Cream] 1 appl TOP TID PRN 03/04/19 Ipratropium/Albuterol Sulfate [Iprat-Albut 0.5-3(2.5) mg/3 ml] 3 ml IH Q6HP PRN 03/04/19 Loperamide HCl [Imodium A-D] 2 tab PO TIDP PRN 03/04/19 Magnesium Gluconate 27.5 mg PO BID 03/04/19 Pantoprazole Sodium [Protonix] 40 mg PO DAILY 03/04/19 Tizanidine HCl [Zanaflex] 2 mg PO DAILYPRN PRN 03/04/19 Tramadol HCl [Ultram] 1 - 2 tab PO Q6HP PRN 03/04/19 Patient Discharge Instructions: Please follow up with Dr. Morales in 2 weeks. Diet: Renal Time spent managing pt's care (in minutes): 35
[2019-03-10 14:37] VITALS: O2SAT 96
--- NOTE | 2019-03-10 16:46 | EKG ---
Test Date: 2018-03-04 Test Time: 15:32:55 [employer] Assistant: SWG MEASUREMENT RESULTS: Intervals: Rate: 81 AK: 170 QRSD: 82 QT: 362 QTc: 420 [place]: P: 82 AK: 170 QRS: 56 T: 91 INTERPRETIVE STATEMENTS: Normal sinus rhythm Minimal voltage criteria for LVH, may be normal variant Nonspecific ST and T wave abnormality Abnormal ECG Cardioserver Error - Incorrect date on EKG This EKG was performed on 03-04-2019 Compared to ECG 07/16/2017 08:59:12 ST (T wave) deviation now present Sinus arrhythmia no longer present Electronically Signed On 03-10-19 16:41:56 DIAL SCREW ASSEMBLER by Jeremy Milian
[2019-03-10 16:56] VITALS: BP 165/70
[2019-03-10] MEDS ORDERED: carvediloL 6.25 MG TAB PO SCH (21:00)
== END 2019-03-10 16:12 | DRG 683 ==
LOC: ER 14:25 → ERHOLD 17:09 → 2ND 19:03
PROVIDERS: ADMIT Family Medicine; ATTEND Family Medicine
DX: N17.9 Acute kidney failure, unspecified (principal); N39.0 Urinary tract infection, site not specified; E87.1 Hypo-osmolality and hyponatremia; E87.2 Acidosis; N18.4 Chronic kidney disease, stage 4 (severe); I12.9 Hypertensive chronic kidney disease with stage 1 through stage 4 chronic kidney disease, or unspecified chronic kidney disease; I25.10 Atherosclerotic heart disease of native coronary artery without angina pectoris; Z93.3 Colostomy status; E86.0 Dehydration; K21.9 Gastro-esophageal reflux disease without esophagitis; E78.5 Hyperlipidemia, unspecified; D63.1 Anemia in chronic kidney disease
CPT/HCPCS: 36415; 51702; 71045; 76770; 80048; 80061; 80074; 80076; 81003; 81015; 82607; 82728; 83540; 83605; 83735; 83880; 84145; 84466; 84484; 85014; 85018; 85025; 85610; 86317; 86850; 86900; 86901; 87040; 87086; 87088; 88108; 93005; 96361; 96365; 97112; 97116; 97161; 97530; 99285; J0583; J1940; J2185; J2405; J2916; J3475; J7030; J7120; P9016

== ENCOUNTER 2019-09-09 09:45 | Emergency (ER) | payer OTHER ==
--- NOTE | 2019-09-09 10:04 | EDPHYS ---
Physician Documentation [facility] Name: Jada Miranda Age: 84 yrs Sex: Female : 1935 Arrival Date: 09/09/2019 Time: 09:51 Bed 8 Private MD: ED Physician Amaury Crowley HPI: 09/08 10:18 This 84 yrs old Female presents to ER via EMS with complaints of Knee Pain. snw 10:18 Onset: The symptoms/episode began/occurred pt states she often awakes with knee and snw back pain. She was given some ultram and feels better. Pt states she feels fine now and did not want to come here. Pt states "when you get old people just assume you're stupid too and don't listen.". The patient has experienced similar episodes in the past. It is unknown whether or not the patient has recently seen a physician. MSE perfomed. Pt to return to [place].. Historical: - Allergies: 09:54 Ceftin; em 09:54 Codeine; em 09:54 Enoxaparin; em 09:54 Lovenox; em 09:54 Plavix; em 09:54 Warfarin; em - PMHx: 09:54 "DIFFICULTY WALKING"; ANOREXIA-GETS DIETARY SUPPLEMENTS NEEDED; Anxiety; CANDIDAL em STOMATITIS; Chronic pain; BACK?; Depression; diarrhea; Diverticulitis; GERD; insomnia; Hypertension; kidney disease; MUSCLE WEAKNESS; Nausea; Sinusitis; vitamin d deficiency; - PSHx: 09:54 Colostomy; em - Immunization history:: Adult Immunizations up to date. - Social history:: Smoking status: Patient/guardian denies using tobacco, the patient reports quitting approximately 15 years ago. ROS: 10:18 Constitutional: Negative for fever, chills, and weight loss, Eyes: Negative for injury, snw pain, redness, and discharge, ENT: Negative for injury, pain, and discharge, Neck: Negative for injury, pain, and swelling, Cardiovascular: Negative for chest pain, palpitations, and edema, Respiratory: Negative for shortness of breath, cough, wheezing, and pleuritic chest pain, Abdomen/GI: Negative for abdominal pain, nausea, vomiting, diarrhea, and constipation, Back: Negative for injury and pain, : Negative for injury, bleeding, discharge, and swelling, MS/Extremity: Negative for injury and deformity, Skin: Negative for injury, rash, and discoloration, Neuro: Negative for headache, weakness, numbness, tingling, and seizure, Psych: Negative for depression, anxiety, suicide ideation, homicidal ideation, and hallucinations. Exam: 10:18 Constitutional: This is a well developed, well nourished patient who is awake, alert, snw and in no acute distress. Head/Face: Normocephalic, atraumatic. Eyes: Pupils equal round and reactive to light, extra-ocular motions intact. Lids and lashes normal. Conjunctiva and sclera are non-icteric and not injected. Cornea within normal limits. Periorbital areas with no swelling, redness, or edema. ENT: Nares patent. No nasal discharge, no septal abnormalities noted. Tympanic membranes are normal and external auditory canals are clear. Oropharynx with no redness, swelling, or masses, exudates, or evidence of obstruction, uvula midline. Mucous membranes moist. Neck: Trachea midline, no thyromegaly or masses palpated, and no cervical lymphadenopathy. Supple, full range of motion without nuchal rigidity, or vertebral point tenderness. No Meningismus. Chest/axilla: Normal chest wall appearance and motion. Nontender with no deformity. No lesions are appreciated. Cardiovascular: Regular rate and rhythm with a normal S1 and S2. No gallops, murmurs, or rubs. Normal PMI, no JVD. No pulse deficits. Respiratory: Lungs have equal breath sounds bilaterally, clear to auscultation and percussion. No rales, rhonchi or wheezes noted. No increased work of breathing, no retractions or nasal flaring. Abdomen/GI: Soft, non-tender, with normal bowel sounds. No distension or tympany. No guarding or rebound. No evidence of tenderness throughout. Back: No spinal tenderness. No costovertebral tenderness. Full range of motion. Skin: Warm, dry with normal turgor. Normal color with no rashes, no lesions, and no evidence of cellulitis. MS/ Extremity: Pulses equal, no cyanosis. Neurovascular intact. Full, normal range of motion. Neuro: Awake and alert, GCS 15, oriented to person, place, time, and situation. Cranial nerves II-XII grossly intact. Motor strength 5/5 in all extremities. Sensory grossly intact. Cerebellar exam normal. Normal gait. Psych: Awake, alert, with orientation to person, place and time. Behavior, mood, and affect are within normal limits. Vital Signs: 09:51 BP 159 / 45; Pulse 69; Resp 18; Temp 97.6; Pulse Ox 95% on R/A; em MDM: 09:53 Patient medically screened. snw 10:18 Data reviewed: vital signs, nurses notes. Data interpreted: Pulse oximetry: on room air snw is 95 %. Interpretation: acceptable. Counseling: I had a detailed discussion with the patient and/or guardian regarding: the historical points, exam findings, and any diagnostic results supporting the discharge/admit diagnosis, the need for outpatient follow up, to return to the emergency department if symptoms worsen or persist or if there are any questions or concerns that arise at home. Special discussion: Based on the history and exam findings, there is no indication for further emergent testing or inpatient evaluation. I discussed with the patient/guardian the need to see the primary care provider for further evaluation of the symptoms. Administered Medications: No medications were administered Disposition: 17:55 Co-signature as Attending Physician, Amaury Crowley MD I agree with the assessment and kdr plan of care. Disposition: 09/09/19 10:04 Discharged to Home. Impression: Encounter for screening, unspecified. - Condition is Stable. - Discharge Instructions: Joint Pain. - Medication Reconciliation Form, Thank You Letter, Antibiotic Education, Prescription Opioid Use form. - Follow up: Emergency Department; When: As needed; Reason: Worsening of condition. Follow up: Private Physician; When: As needed. Signatures: Amaury Crowley MD MD kdr Waters, Shelly, FLUID POWER MECHANIC-C FLUID POWER MECHANIC-Csnw Sreedhar Garcia, RN RN em Corrections: (The following items were deleted from the chart) 11:43 10:04 09/09/2019 10:04 Discharged to Home. Impression: Encounter for screening, em unspecified. Condition is Stable. Forms are Medication Reconciliation Form, Thank You Letter, Antibiotic Education, Prescription Opioid Use. Follow up: Emergency Department; When: As needed; Reason: Worsening of condition. Follow up: Private Physician; When: As needed. snw
--- NOTE | 2019-09-09 10:04 | ER ---
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 Coronavirus screen: Proceed with normal triage. Ebola Screen: Patient negative for fever greater than or equal to 101.5 degrees Fahrenheit, and additional compatible Ebola Virus Disease symptoms Patient denies exposure to infectious person. Patient denies travel to an Ebola-affected area in the 21 days before illness onset. No symptoms or risks identified at this time. Initial Sepsis Screen: Does the patient meet any 2 criteria? No. Patient's initial sepsis screen is negative. Does the patient have a suspected source of infection? No. Patient's initial sepsis screen is negative. Risk Assessment: Do you want to hurt yourself or someone else? Patient reports no desire to harm self or others. Onset of symptoms was September 09, 2019. 09:51 Method Of Arrival: EMS: [facility] em 09:51 Acuity: DAVIDE 4 em Historical: - Allergies: 09:54 Ceftin; em 09:54 Codeine; em 09:54 Enoxaparin; em 09:54 Lovenox; em 09:54 Plavix; em 09:54 Warfarin; em - PMHx: 09:54 "DIFFICULTY WALKING"; ANOREXIA-GETS DIETARY SUPPLEMENTS NEEDED; Anxiety; CANDIDAL em STOMATITIS; Chronic pain; BACK?; Depression; diarrhea; Diverticulitis; GERD; insomnia; Hypertension; kidney disease; MUSCLE WEAKNESS; Nausea; Sinusitis; vitamin d deficiency; - PSHx: 09:54 Colostomy; em - Immunization history:: Adult Immunizations up to date. - Social history:: Smoking status: Patient/guardian denies using tobacco, the patient reports quitting approximately 15 years ago. Screenin:57 Abuse screen: Denies threats or abuse. Denies injuries from another. Nutritional sv screening: No deficits noted. Tuberculosis screening: No symptoms or risk factors identified. Fall Risk No fall in past 12 months (0 pts). No secondary diagnosis (0 pts). No IV (0 pts). Ambulatory Aid- None/Bed Rest/Nurse Assist (0 pts). Gait- Normal/Bed Rest/Wheelchair (0 pts) Mental Status- Oriented to own ability (0 pts). Total Ochoa Fall Scale indicates No Risk (0-24 pts). Assessment: 09:52 General: Appears in no apparent distress. comfortable, Behavior is calm, cooperative, em appropriate for age, Denies fever. Pain: Denies pain. Neuro: Level of Consciousness is awake, alert, obeys commands, Oriented to person, place, time, situation, Appropriate for age. Cardiovascular: Capillary refill < 3 seconds Patient's skin is warm and dry. Respiratory: Airway is patent Respiratory effort is even, unlabored, Respiratory pattern is regular, symmetrical, Denies cough, shortness of breath. GI: Abdomen is flat, Patient currently denies nausea, vomiting. Derm: Skin is intact, is healthy with good turgor, Skin is pink, warm \\T\\ dry. Musculoskeletal: Capillary refill is > 3 seconds, is sluggish, in bilateral fingers. toes. Range of motion: intact in all extremities. 10:12 Reassessment: attempted to call [facility], left voice mail. em 11:02 Reassessment: gave report to [facility] staff, pending transportation. em Vital Signs: 09:51 BP 159 / 45; Pulse 69; Resp 18; Temp 97.6; Pulse Ox 95% on R/A; em ED Course: 09:51 Patient arrived in ED. em 09:52 Amaury Crowley MD is Attending Physician. kdr 09:52 Dafne Parkinson F[facility]-C [facility]. snw 09:54 Triage completed. em 09:54 Amaury Crowley MD is Attending Physician. kdr 09:54 Arm band placed on. em 09:55 Sreedhar Garcia, RAMON is Primary Nurse. em 09:57 Patient has correct armband on for positive identification. Bed in low position. Call sv light in reach. Door closed. Head of bed elevated. 11:35 No provider procedures requiring assistance completed. Patient did not have IV access em during this emergency room visit. Administered Medications: No medications were administered Outcome: 10:04 Discharge ordered by . snw 11:42 Discharged to custodial. em 11:42 Discharged to custodial. 11:42 Condition: good 11:42 Discharge instructions given to patient, custodial, Instructed on discharge instructions, follow up and referral plans. Demonstrated understanding of instructions, follow-up care. 11:43 Patient left the ED. em Signatures: Teena Fisher, RN RN Amaury Crowley MD MD kdr Waters, Shelly, HEALTH AND WELLNESS COACH-C HEALTH AND WELLNESS COACH-Csnw Sreedhar Garcia, RN RN em
[2019-09-09 11:49] VITALS: BP 159/45; TEMP 97.6; O2SAT 95
== END 2019-09-09 11:43 | disposition home or self-care (01) ==
LOC: ER 09:45
DX: Z00.00 Encounter for general adult medical examination without abnormal findings (principal); I10 Essential (primary) hypertension; Z88.1 Allergy status to other antibiotic agents; Z88.5 Allergy status to narcotic agent; Z88.8 Allergy status to other drugs, medicaments and biological substances
CPT/HCPCS: 99283

== ENCOUNTER 2019-10-26 10:27 | Inpatient (IN) | payer OTHER ==
[2019-10-26 11:51] LABS: Absolute Lymphocytes (CBC) 1.3 K/uL (0.7-4.9); Basophils % 0.5 % (0-1.3); Hematocrit 30.3 % (36.0-45.0); Lymphocytes % 14.6 % (15.3-44.8); MPV 8.5 fL (7.6-11.3); RBC Red Blood Cell Count 3.31 M/uL (3.86-4.86)
[2019-10-26 11:58] LABS: Protime INR 1.16
[2019-10-26 12:16] LABS: BUN Blood Urea Nitrogen 44 mg/dL (7-18); Bicarbonate 17 mmol/L (21-32); Glucose Level 82 mg/dL (74-106); Magnesium 1.8 mg/dL (1.8-2.4); Potassium 4.9 mmol/L (3.5-5.1); Sodium Level 141 mmol/L (136-145); Troponin (Emerg Dept Use Only) < 0.02 ng/mL (0.0-0.045)
--- NOTE | 2019-10-26 13:24 | EDPHYS ---
Physician Documentation [facility] Name: Jada Miranda Age: 84 yrs Sex: Female : 1935 Arrival Date: 10/26/2019 Time: 10:38 Bed 4 Private MD: ED Physician Amaury Crowley HPI: 10/25 11:05 This 84 yrs old Female presents to ER via EMS with complaints of cp Lethargy,possdehydration. 11:05 general weakness. cp 11:05 Onset: The symptoms/episode began/occurred gradually. Severity of symptoms: in the cp emergency department the symptoms are unchanged. Patient reports decreased appetite due to not liking food served at [facility]. Patient reports she has not been drinking much and was supposed to receive IV fluids today but nursing staff were unable to obtain IV access. Patient denies chest pain, denies abdominal pain. Historical: - Allergies: 10:45 Ceftin; ph 10:45 Codeine; ph 10:45 Enoxaparin; ph 10:45 Lovenox; ph 10:45 Plavix; ph 10:45 Warfarin; ph - Home Meds: 10:45 Actonel 35 mg Oral tab 1 tab once wkly [Active]; aspirin 81 mg Oral chew 1 tab once ph daily [Active]; ergocalciferol (vitamin D2) 50,000 unit Oral cap 1 cap once wkly [Active]; fexofenadine 30 mg Oral tab 1 tabs 2 times per day [Active]; Flonase 50 mcg/actuation Nasal spsn 2 sprays once daily [Active]; Imodium A-D 2 mg Oral tab 2 tabs [Active]; melatonin 3 mg Oral tab daily [Active]; metoprolol tartrate 12.5MG Oral tab 1 tab 2 times per day [Active]; Pepcid 20 mg Oral tab 1 tab 2 times per day [Active]; Vitamin D3 4,000 unit Oral cap [Active]; Zofran Oral for as needed [Active]; - PMHx: 10:45 "DIFFICULTY WALKING"; ANOREXIA-GETS DIETARY SUPPLEMENTS NEEDED; Anxiety; CANDIDAL ph STOMATITIS; Chronic pain; BACK?; Depression; diarrhea; Diverticulitis; GERD; Hypertension; insomnia; kidney disease; MUSCLE WEAKNESS; Nausea; Sinusitis; vitamin d deficiency; - PSHx: 10:45 Colostomy; ph - Immunization history:: Adult Immunizations up to date. - Social history:: Smoking status: Patient denies any tobacco usage or history of. ROS: 11:10 Constitutional: Positive for poor PO intake, Negative for body aches, chills, fever. cp 11:10 Eyes: Negative for injury, pain, redness, and discharge. cp 11:10 ENT: Negative for ear pain, sore throat, difficulty swallowing, difficulty handling secretions. 11:10 Cardiovascular: Negative for chest pain, edema. 11:10 Respiratory: Negative for cough, shortness of breath, wheezing. 11:10 Abdomen/GI: Negative for abdominal pain, nausea, vomiting, and diarrhea. 11:10 : Negative for urinary symptoms. 11:10 Neuro: Positive for weakness, Negative for altered mental status, headache, syncope. 11:10 All other systems are negative. Exam: 11:15 Constitutional: The patient appears in no acute distress, alert, awake, cp non-diaphoretic, non-toxic, well developed, frail. 11:15 Head/Face: Normocephalic, atraumatic. cp 11:15 Eyes: Periorbital structures: appear normal, Pupils: equal, round, and reactive to light and accomodation, Extraocular movements: intact throughout, Conjunctiva: normal, no exudate, no injection, Sclera: no appreciated abnormality, Lids and lashes: appear normal, bilaterally. 11:15 ENT: External ear(s): are unremarkable, Nose: is normal, Mouth: Lips: dry, Oral mucosa: dry, Posterior pharynx: Airway: no evidence of obstruction, patent. 11:15 Neck: ROM/movement: is normal, is supple, without pain, no range of motions limitations, no nuchal rigidity. 11:15 Chest/axilla: Inspection: normal, Palpation: is normal, no crepitus, no tenderness. 11:15 Cardiovascular: Rate: bradycardic, Rhythm: regular, Edema: is not appreciated, JVD: is not appreciated. 11:15 Respiratory: the patient does not display signs of respiratory distress, Respirations: normal, no use of accessory muscles, no retractions, labored breathing, is not present, Breath sounds: are clear throughout, no decreased breath sounds, no stridor, no wheezing. 11:15 Abdomen/GI: Inspection: stoma for colostomy noted left lower quadrant abdomen, Bowel sounds: active, all quadrants, Palpation: abdomen is soft and non-tender, in all quadrants. 11:15 Neuro: Orientation: to person, place \\T\\ time. Mentation: is normal, Motor: moves all fours, general weakness without focal deficits. 11:30 ECG was reviewed by the Attending Physician. Vital Signs: 10:39 BP 92 / 42; Pulse 56; Resp 16; Temp 97.9; Pulse Ox 100% on R/A; Weight 70 kg; Pain 0/10;ph 12:03 BP 81 / 48; Pulse 84; Resp 16; Pulse Ox 99% on R/A; em 12:16 BP 97 / 78; em 13:00 BP 112 / 51; Pulse 78; Resp 18; Pulse Ox 98% on R/A; em 14:00 BP 146 / 57; Pulse 78; Resp 18; Pulse Ox 96% on R/A; em 14:45 BP 98 / 43; Pulse 83; Resp 20; Pulse Ox 99% on R/A; em 15:07 BP 103 / 47; Pulse 85; Resp 20 S; Pulse Ox 99% on R/A; em 16:01 BP 86 / 47; Pulse 71; Resp 16; Pulse Ox 99% on R/A; em 12:03 pt states he BP is normal in the 80s/90s systolic em MDM: 10:58 Patient medically screened. 11:20 Differential Diagnosis sepsis, dehydration, cardiac arrythmia, acute NV, CVA. 13:05 Data reviewed: vital signs, nurses notes, lab test result(s), EKG, I have discussed the patient's presentation/case with the attending Emergency Department Physician; and as a result, I will admit patient. 13:05 Test interpretation: by ED physician or midlevel provider: ECG. 13:25 Physician consultation: Waldo Mckeon MD was called at 13:20, was contacted at 13:20, regarding admission, to the telemetry unit. patient's condition, and will see patient in ED. 10/25 11:00 Order name: Urine Microscopic Only 10/25 11:00 Order name: Basic Metabolic Panel; Complete Time: 12:59 10/25 11:00 Order name: CBC with Diff; Complete Time: 12:11 cp 10/25 12:11 Interpretation: Normal except: RBC 3.31; HGB 9.7; HCT 30.3; MCV 91.7; MCHC 31.8; BONI% cp 77.1; LYM% 14.6. 10/25 11:00 Order name: Magnesium; Complete Time: 12:59 cp 10/25 11:00 Order name: PT-INR; Complete Time: 12:11 cp 10/25 11:00 Order name: Troponin (emerg Dept Use Only); Complete Time: 12:59 cp 10/25 11:00 Order name: EKG; Complete Time: 11:00 cp 10/25 11:00 Order name: Cardiac monitoring; Complete Time: 11:42 cp 10/25 11:00 Order name: EKG - Nurse/Tech; Complete Time: 11: cp 10/25 13:07 Order name: Diet Regular; Complete Time: 13:07 cp 10/25 11:00 Order name: IV Saline Lock; Complete Time: 11: cp 10/25 11:00 Order name: Labs collected and sent; Complete Time: 11: cp 10/25 11:00 Order name: O2 Per Protocol; Complete Time: 11: cp 10/25 11:00 Order name: O2 Sat Monitoring; Complete Time: 11: cp EC:30 Rate is 87 beats/min. Rhythm is regular. VA interval is normal. QRS interval is normal. cp QT interval is normal. Interpreted by me. Reviewed by me. Administered Medications: 11:51 Drug: NS 0.9% 250 ml Route: IV; Rate: bolus; Site: right wrist; em 12:17 Follow up: IV Status: Completed infusion; IV Intake: 250ml em 12:40 Drug: NS 0.9% 250 ml Route: IV; Rate: bolus; Site: right wrist; em 13:31 Follow up: IV Status: Completed infusion; IV Intake: 250ml em 13:31 Drug: NS 0.9% 500 ml Route: IV; Rate: bolus; Site: right wrist; em 15:58 Follow up: IV Status: Completed infusion; IV Intake: 500ml em Disposition: 10/26/19 13:24 Hospitalization ordered by Waldo Mckeon for Observation. Preliminary diagnosis are Hypotension, Other acute kidney failure, Weakness - general. - Bed requested for Telemetry/MedSurg (Inpatient). - Status is Observation. em - Condition is Stable. - Problem is new. - Symptoms have improved. Addendum: 10/27/2019 19:49 Co-signature as Attending Physician, Amaury Crowley MD I agree with the assessment and k dr plan of care. Signatures: Dispatcher [employer] EDMS Jyoti Aggarwal Amaury Gan MD MD [facility] Sreedhar Garcia, RN RN Mirtha Esposito RN RN Rebekah, Jemal, PA PA cp Corrections: (The following items were deleted from the chart) 10/25 14:12 13:24 Hospitalization Ordered by Waldo Mckeon MD for Observation. Preliminary cp diagnosis is Hypotension. Bed requested for Telemetry/MedSurg (Inpatient). Status is Observation. Condition is Stable. Problem is new. Symptoms have improved. cp 15:55 14:12 10/26/2019 13:24 Hospitalization Ordered by Waldo Mckeon MD for Observation. bd Preliminary diagnosis is Hypotension; Other acute kidney failure; Weakness - general. Bed requested for Telemetry/MedSurg (Inpatient). Status is Observation. Condition is Stable. Problem is new. Symptoms have improved. cp 17:02 15:55 10/26/2019 13:24 Hospitalization Ordered by Waldo Mckeon MD for Observation. em Preliminary diagnosis is Hypotension; Other acute kidney failure; Weakness - general. Bed requested for Telemetry/MedSurg (Inpatient). Status is Observation. Condition is Stable. Problem is new. Symptoms have improved. bd
--- NOTE | 2019-10-26 13:24 | ER ---
Nurse's Notes [facility] Name: Jada Miranda Age: 84 yrs Sex: Female : 1935 Arrival Date: 10/26/2019 Time: 10:38 Bed 4 Private MD: Diagnosis: Hypotension;Other acute kidney failure;Weakness-general Presentation: 10/25 10:39 Chief complaint: EMS states: [facility] staff reports pt appears lethargic, altered, ph is in kidney failure but refuses HD, was unable to receive scheduled fluid bolus due to inability to establish IV access. On scene pt AOx4, SBP 70s, NS 250 mls administered to 22g R wrist. Coronavirus screen: At this time, the client does not indicate any symptoms associated with coronavirus-19. Ebola Screen: No symptoms or risks identified at this time. Initial Sepsis Screen: Does the patient meet any 2 criteria? No. Patient's initial sepsis screen is negative. Does the patient have a suspected source of infection? No. Patient's initial sepsis screen is negative. Risk Assessment: Do you want to hurt yourself or someone else? Patient reports no desire to harm self or others. Onset of symptoms was October 26, 2019. 10:39 Method Of Arrival: EMS: [facility] ph 10:39 Acuity: DAVIDE 3 ph Historical: - Allergies: 10:45 Ceftin; ph 10:45 Codeine; ph 10:45 Enoxaparin; ph 10:45 Lovenox; ph 10:45 Plavix; ph 10:45 Warfarin; ph - Home Meds: 10:45 Actonel 35 mg Oral tab 1 tab once wkly [Active]; aspirin 81 mg Oral chew 1 tab once ph daily [Active]; ergocalciferol (vitamin D2) 50,000 unit Oral cap 1 cap once wkly [Active]; fexofenadine 30 mg Oral tab 1 tabs 2 times per day [Active]; Flonase 50 mcg/actuation Nasal spsn 2 sprays once daily [Active]; Imodium A-D 2 mg Oral tab 2 tabs [Active]; melatonin 3 mg Oral tab daily [Active]; metoprolol tartrate 12.5MG Oral tab 1 tab 2 times per day [Active]; Pepcid 20 mg Oral tab 1 tab 2 times per day [Active]; Vitamin D3 4,000 unit Oral cap [Active]; Zofran Oral for as needed [Active]; - PMHx: 10:45 "DIFFICULTY WALKING"; ANOREXIA-GETS DIETARY SUPPLEMENTS NEEDED; Anxiety; CANDIDAL ph STOMATITIS; Chronic pain; BACK?; Depression; diarrhea; Diverticulitis; GERD; Hypertension; insomnia; kidney disease; MUSCLE WEAKNESS; Nausea; Sinusitis; vitamin d deficiency; - PSHx: 10:45 Colostomy; ph - Immunization history:: Adult Immunizations up to date. - Social history:: Smoking status: Patient denies any tobacco usage or history of. Screenin:00 Abuse screen: Denies threats or abuse. Nutritional screening: No deficits noted. em Tuberculosis screening: No symptoms or risk factors identified. Fall Risk None identified. Assessment: 11:25 General: Appears in no apparent distress. comfortable, Behavior is calm, cooperative, em appropriate for age. Pain: Denies pain. Neuro: Level of Consciousness is awake, alert, obeys commands, Oriented to person, place, time, situation. Cardiovascular: Capillary refill < 3 seconds Patient's skin is warm and dry. Rhythm is sinus rhythm. Respiratory: Airway is patent Respiratory effort is even, unlabored, Respiratory pattern is regular, symmetrical. GI: Abdomen is flat. Derm: Skin is intact, is fragile, is thin, Skin is pink, warm \\T\\ dry. Musculoskeletal: Capillary refill < 3 seconds, Range of motion: intact in all extremities. 12:17 Reassessment: Patient appears in no apparent distress at this time. Patient and/or em family updated on plan of care and expected duration. Pain level reassessed. Patient is alert, oriented x 3, equal unlabored respirations, skin warm/dry/pink. 13:00 Reassessment: Patient appears in no apparent distress at this time. Patient and/or em family updated on plan of care and expected duration. Pain level reassessed. Patient is alert, oriented x 3, equal unlabored respirations, skin warm/dry/pink. 14:00 Reassessment: Patient appears in no apparent distress at this time. Patient and/or em family updated on plan of care and expected duration. Pain level reassessed. Patient is alert, oriented x 3, equal unlabored respirations, skin warm/dry/pink. 15:01 Reassessment: Patient appears in no apparent distress at this time. Patient and/or em family updated on plan of care and expected duration. Pain level reassessed. Patient is alert, oriented x 3, equal unlabored respirations, skin warm/dry/pink. 15:57 Reassessment: unable to give report at this time. em Vital Signs: 10:39 BP 92 / 42; Pulse 56; Resp 16; Temp 97.9; Pulse Ox 100% on R/A; Weight 70 kg; Pain 0/10;ph 12:03 BP 81 / 48; Pulse 84; Resp 16; Pulse Ox 99% on R/A; em 12:16 BP 97 / 78; em 13:00 BP 112 / 51; Pulse 78; Resp 18; Pulse Ox 98% on R/A; em 14:00 BP 146 / 57; Pulse 78; Resp 18; Pulse Ox 96% on R/A; em 14:45 BP 98 / 43; Pulse 83; Resp 20; Pulse Ox 99% on R/A; em 15:07 BP 103 / 47; Pulse 85; Resp 20 S; Pulse Ox 99% on R/A; em 16:01 BP 86 / 47; Pulse 71; Resp 16; Pulse Ox 99% on R/A; em 12:03 pt states he BP is normal in the 80s/90s systolic em ED Course: 10:38 Patient arrived in ED. ph 10:42 Triage completed. ph 10:42 Sreedhar Garcia, RN is Primary Nurse. em 10:45 Arm band placed on. ph 10:50 Jemal Welch PA is PHCP. cp 10:50 Amaury Crowley MD is Attending Physician. cp 11:20 Patient has correct armband on for positive identification. Placed in gown. Bed in low em position. Call light in reach. Adult w/ patient. quality assurance monitor final on. Pulse ox on. NIBP on. 11:20 No provider procedures requiring assistance completed. Maintain EMS IV. Dressing em intact. Good blood return noted. Site clean \\T\\ dry. Gauge \\T\\ site: 22 R wrist. 13:23 Waldo Mckeon MD is Hospitalizing Provider. cp 16:36 Patient admitted, IV remains in place. em Administered Medications: 11:51 Drug: NS 0.9% 250 ml Route: IV; Rate: bolus; Site: right wrist; em 12:17 Follow up: IV Status: Completed infusion; IV Intake: 250ml em 12:40 Drug: NS 0.9% 250 ml Route: IV; Rate: bolus; Site: right wrist; em 13:31 Follow up: IV Status: Completed infusion; IV Intake: 250ml em 13:31 Drug: NS 0.9% 500 ml Route: IV; Rate: bolus; Site: right wrist; em 15:58 Follow up: IV Status: Completed infusion; IV Intake: 500ml em Intake: 12:17 IV: 250ml; Total: 250ml. em 13:31 IV: 250ml; Total: 500ml. em 15:58 IV: 500ml; Total: 1000ml. em Outcome: 13:24 Decision to Hospitalize by Provider. cp 16:35 Admitted to Med/surg accompanied by tech, via wheelchair, room 224, with chart, Report em called to RAMON Barriga 16:35 Condition: stable 16:35 Instructed on the need for admit, Demonstrated understanding of instructions. 17:02 Patient left the ED. em Signatures: Sreedhar Garcia RN RN em Mirtha Esposito RN RN ph Jemal Welch, PA PA cp
[2019-10-26] MEDS: NA CHLORIDE 0.9% 1,000 ML IV SCH (17:28)
[2019-10-26 17:58] VITALS: BMI 22.9
--- NOTE | 2019-10-26 18:39 | RAD REPORT ---
EXAM DESCRIPTION: US - Renal Ultrasound-Complete - 10/26/2019 6:30 pm CLINICAL HISTORY: Acute renal insufficiency over chronic renal disease COMPARISON: March 2019 FINDINGS: The right kidney measures 9 cm with an increased echotexture. 1 centimeter cyst The left kidney measures 8 cm with an increased echotexture. Hydronephrosis is not seen. No gross abnormality of bladder is seen IMPRESSION: Increased renal echotexture consistent with parenchymal disease
--- NOTE | 2019-10-26 19:21 | P.HP ---
Certification for Inpatient With expected LOS: >2 Midnights Patient will require the following post-hospital care: Jail Practitioner: I am a practitioner with admitting privileges, knowledge of patient current condition, hospital course, and medical plan of care. Services: Services provided to patient in accordance with Admission requirements found in Title 42 Section 412.3 of the Code of Federal Regulations Patient History Date of Service: 10/26/19 Primary Care Provider: care home ([facility]) Reason for admission: LEANDRO on CKDV, dehydration History of Present Illness: 84yo F who was sent to ED by care home staff due to hypotension, worsening renal function in setting of decreased PO intake and lethargy. Patient is a poor historian and unable to provide detailed history. She does state she was told she had worsening kidney function ~1 week ago by care home staff. She was unable to receive IVF due to inability to establish IV access. She stats otherwise she has been feeling well. She attributes decreased PO intake due to care home food not appearing appetizing to her. She denied recent fevers/chills, chest pain, SOB, abdominal pain, dysuria, change in urinary/bowel habits, rash, new skin lesions. In the ED, she noted to have BP ranging 80s-100/60-70s, responded to IVF boluses. She received a total of 1000ml in ED. Lab work notable for hemoglobin: 9.7, creatinine: 5.2, CRP: 6.4 Allergies cefuroxime [From Ceftin] Allergy (Verified 03/04/19 21:52) Unknown clopidogrel [From Plavix] Allergy (Verified 03/04/19 21:52) Unknown enoxaparin Allergy (Verified 03/04/19 21:52) Hives warfarin Allergy (Verified 03/04/19 21:52) Hives codeine Adverse Reaction (Mild, Verified 03/04/19 21:52) Unknown Home Medications: Ascorbic Acid [Vitamin C*] 500 mg PO DAILY 10/26/19 Azelastine/Fluticasone [Azelastin-Flutic 137-50Mcg Spr] 1 in IN BIDP PRN 10/26/19 Cetirizine HCl [Zyrtec*] 10 mg PO DAILY 10/26/19 Cholecalciferol (Vitamin D3) [Vitamin D3] 1,000 unit PO DAILY 10/26/19 Fexofenadine HCl [Allergy Relief] 60 mg PO BIDP PRN 10/26/19 Gabapentin [Neurontin*] 100 mg PO BEDTIME 10/26/19 Hydrocortisone Butyrate/Emoll [Hydrocort Buty 0.1% Lipo Cream] 1 applic TOP TIDP PRN 10/26/19 Loperamide [Imodium] 2 mg PO TIDP PRN 10/26/19 Magnesium Oxide [Mag 0X*] 300 mg PO DAILY 10/26/19 Melatonin 3 mg PO BEDTIME 10/26/19 Nystatin 1 unit TOP BID 10/26/19 Ondansetron [Zofran (Odt)*] 4 mg PO TIDP PRN 10/26/19 Pantoprazole Sodium [Protonix] 40 mg PO DAILY 10/26/19 Patiromer Calcium Sorbitex [Veltassa] 1 packet PO DAILY 10/26/19 Tizanidine [Zanaflex*] 2 mg PO DAILYPRN PRN 10/26/19 Tramadol HCl [Ultram] 50 mg PO Q6HP PRN 10/26/19 Zinc Sulfate [Zinc Sulfate*] 220 mg PO DAILY 10/26/19 cilostazoL [Cilostazol] 50 mg PO BID 10/26/19 - Past Medical/Surgical History Has patient received pneumonia vaccine in the past: Yes Diabetic: No -: History of diverticulitis/Status post colostomy -: CAD -: Hyperlipidemia -: History of recurrent UTI -: GERD -: History GI bleed -: Chronic Kidney disease -: Essential Hypertension -: Iron deficiency anemia -: Colostomy -: Sigmoid Colon resection -: Fistula removed apr 28 2015 -: Right eye cataract removal Psychosocial/ Personal History: Patient lives at the care home. She has been there for over 4 years. - Family History Mother -: Cancer Notes: Colon CA Sister Notes: Aneurysm - Social History Smoking Status: Never smoker Alcohol use: No CD- Drugs: No Caffeine use: Yes [facility] Physical Examination - Vital Signs Temperature: 97.1 F Blood Pressure: 88/42 Pulse: 83 Respirations: 18 - Physical Exam General: Alert, In no apparent distress, Cooperative HEENT: EOMI, Sclerae nonicteric Neck: Supple, No Thyromegaly Respiratory: Clear to auscultation bilaterally, Normal air movement Cardiovascular: No edema, Normal S1 S2, Irregular heart rate/rhythm Gastrointestinal: Normal bowel sounds, Soft and benign, Non-distended Musculoskeletal: No erythema, No tenderness Integumentary: No rashes, No breakdown Neurological: Normal speech, Normal affect Other Physical/Emotional Findings: +ostomy bag with stool - Studies Laboratory Data (last 24 hrs) 10/26/19 11:35: PT 13.7 H, INR 1.16 10/26/19 11:35: WBC 9.1, Hgb 9.7 L, Hct 30.3 L, Plt Count 277 10/26/19 11:35: Sodium 141, Potassium 4.9, BUN 44 H, Creatinine 5.20 H*, Glucose 82, Magnesium 1.8 Assessment and Plan - Plan LEANDRO on CKDV Hypotension Lethargy, fatigue h/o diverticulitis/fistule now s/p colostomy Anemia of chronic disease GERD with h/o GI bleed Hyperlipidemia LEANDRO on CKDV -given HPI, most likely prerenal with decreased PO intake -will give gentle IVF, monitor closely -renal consulted Hypotension -likely due to dehydration, responded in ED to IVF boluses Lethargy, fatigue -likely due to LEANDRO and hypotension, seems closer to baseline after receiving IVF -does have h/o recurrent UTI, will check Urine studies, however has been afebrile h/o diverticulitis/fistula now s/p colostomy -continue ostomy care Anemia of chronic disease - monitor CBC GERD with h/o GI bleed -continue protonix, avoid anticoag / chemical DVT prop hylaxis for now Dispo: anticipate dc in 48-72 hrs [facility] Plan to discharge in: Greater than 2 days - Advance Directives Does patient have a Living Will: Yes Does patient have a Durable POA for Healthcare: Yes - Code Status/Comfort Care Code Status: Do Not Attempt Resuscitat Time Spent Managing Pts Care (In Minutes): 55
[2019-10-26] MEDS ORDERED: HYDROCORTISONE BUTYRATE TOP PRN (19:30)
[2019-10-26] MEDS ORDERED: [UNRECOGNIZED DRUG - OTHER] TOP PRN (19:30)
[2019-10-26] MEDS ORDERED: TIZANIDINE 4 MG TABLET PO PRN (19:30)
[2019-10-26] MEDS ORDERED: LOPERAMIDE HCL 2 MG CAPSULE PO PRN (19:30)
[2019-10-26] MEDS: NYSTATIN PWDR 100000 UNIT/GM TOP SCH (21:00)
[2019-10-26] MEDS: TRAMADOL HCL 50 MG TAB PO PRN (21:23)
[2019-10-26] MEDS: MELATONIN 3 MG TABLET PO SCH (21:23)
[2019-10-26] MEDS: GABAPENTIN 100 MG CAP PO SCH (21:24)
[2019-10-26 22:59] LABS: Urine Bacteria >50 /HPF (<20); Urine Culture Reflex Order REFLEXED
[2019-10-26 23:00] LABS: Urine RBC <5 /HPF (NONE SEEN); Urine Urothelial Cells <5 /HPF (NONE SEEN)
[2019-10-27] MEDS: Levofloxacin 250mg IV 250 MG/50 ML BAG IV SCH (01:22)
[2019-10-27] MEDS: TRAMADOL HCL 50 MG TAB PO PRN ×3 (03:38→22:06)
[2019-10-27] MEDS: NA CHLORIDE 0.9% 1,000 ML IV SCH ×4 (03:40→21:58)
[2019-10-27] MEDS: ONDANSETRON 4 MG (ODT) TAB PO PRN ×2 (05:24→13:05)
[2019-10-27 06:12] LABS: Basophils % 0.4 % (0-1.3); Hematocrit 28.5 % (36.0-45.0); Lymphocytes % 9.4 % (15.3-44.8); MPV 8.5 fL (7.6-11.3); RBC Red Blood Cell Count 3.11 M/uL (3.86-4.86)
[2019-10-27 06:18] LABS: Albumin 2.5 g/dL (3.4-5.0); Bilirubin Total 0.3 mg/dL (0.2-1.0); Potassium 4.5 mmol/L (3.5-5.1); Protein, Total 6.2 g/dL (6.4-8.2)
[2019-10-27] MEDS: PATIROMER CALCIUM SORBITEX PO SCH (09:00)
[2019-10-27] MEDS: VITAMIN D 1000 UNIT TAB PO SCH (09:00)
[2019-10-27] MEDS: NYSTATIN PWDR 100000 UNIT/GM TOP SCH ×3 (09:00→22:08)
[2019-10-27 09:02] LABS: Platelet Estimate ADEQ; Urine White Blood Cell Casts OK
[2019-10-27 09:03] LABS: Blood Morphology Comment NOT SEEN (NOT SEEN)
[2019-10-27] MEDS ORDERED: NA CHLORIDE 0.9% 1,000 ML IV ONE (10:16)
[2019-10-27] MEDS: ASCORBIC ACID 500 MG TABLET PO SCH (10:27)
[2019-10-27] MEDS: PANTOPRAZOLE 40MG TABLET PO SCH (10:27)
[2019-10-27] MEDS: MAGNESIUM OXIDE 400 MG TAB PO SCH (10:27)
[2019-10-27] MEDS: ZINC SULFATE 220 MG CAP PO SCH (10:27)
--- NOTE | 2019-10-27 10:46 | EKG ---
Test Date: 2019-10-26 Test Time: 11:23:39 Turn Supervisor: CHAYO MEASUREMENT RESULTS: Intervals: Rate: 87 GA: 156 QRSD: 88 QT: 386 QTc: [address] [place]: P: 73 GA: 156 QRS: 36 T: 81 INTERPRETIVE STATEMENTS: Sinus rhythm with premature supraventricular complexes Anterior infarct, age undetermined Abnormal ECG Compared to ECG 03/04/2019 15:32:55 Atrial premature complex(es) now present Myocardial infarct finding now present Left ventricular hypertrophy no longer present ST (T wave) deviation no longer present Electronically Signed On 10-27-19 10:43:46 CDT by Jeremy Milian
[2019-10-27] MEDS: LOPERAMIDE HCL 2 MG CAPSULE PO SCH ×2 (12:59→22:07)
--- NOTE | 2019-10-27 16:49 | CON ---
Date of Consultation: 10/27/2019 Additional Consulting Physician: Dr. Mckeon. Reason For Consultation: Elevated BUN and creatinine, fluid management. History Of Present Illness: This is a pleasant 84-year-old female with significant history. All the information has been obtained from the record as the patient is slightly confused. Hypertension, diverticulosis, coronary artery disease, hyperlipidemia, carotid stenosis, GERD, lumbar spinal stenosis, the patient came to the hospital as her lab in the shelter showed elevation in BUN and creatinine. For that reason, the patient was referred. According to her, the patient had poor intake with nausea without any vomiting. The patient has apparently been on ibuprofen 200 mg 3 times a day. Upon arrival to the hospital, blood pressure was systolic down to the 80. The patient's after hydration blood pressure improved, blood pressure up to the 100. The patient more awake. The patient had good urination. The patient denied any shortness of breath, any nausea, any vomiting. Reviewing the record, there is no mention for any LANA inhibitor. Again as I mentioned, the patient being on ibuprofen. Allergies: PLAVIX, COUMADIN, AND CODEINE. Home Medications: Include vitamin C, inhaler, vitamin D, fexofenadine, local hydrocortisone, nystatin, Zofran, ibuprofen, zinc sulfate. Past Medical History: Includes; 1. Coronary artery disease. 2. Hyperlipidemia. 3. GERD. 4. Hypertension. 5. Chronic kidney disease, baseline creatinine on recent admission 2.3 back in March with GFR of 20. Family History: Positive for colon CA. Social History: Lives in shelter. Denied smoking. Denied drinking. Denied drugs abuse. Review of Systems: The patient confused. Physical Examination: Vital Signs: When I saw the patient, blood pressure 106/68, pulse of 89, afebrile. Chest: Clear to auscultation. Heart: S1, S2. Systolic murmur. Abdomen: Soft, nontender. Colostomy bag. Extremities: No edema. Neurologic: Alert, moving 4 extremities. No focal. No tremor. Laboratory Data: Back in March, creatinine 2.3, GFR of 20. Yesterday; sodium 141, potassium 4.9, bicarb 17, BUN 44, creatinine 5.2, calcium 8.5, magnesium 1.8. Today lab; sodium 143, potassium 4.5, bicarb 15, BUN 46, creatinine 4.7, GFR of 9, calcium 7.7. Urinalysis; specific gravity of 1.025, WBC more than 50. Renal ultrasound 11/09. Assessment And Plan: 1. Acute kidney injury, multifactorial, secondary to poor perfusion, acute tubular necrosis, superimposed with RENUKA secondary to ibuprofen, nonsteroid, nonoliguric. Still looked to me on the dry side. I am going to go ahead and give the patient another liter of bolus. I agree with holding nonsteroid and all blood pressure medications and we will monitor. 2. Hypertension with the presence of acute kidney injury, low blood pressure. Hold all blood pressure medications. 3. Urinary tract infection, noncomplicated. We will start the patient on Levaquin. We will follow up culture. 4. Urosepsis as above. Continue hydration. We will bolus the patient, start the patient on Levaquin. 5. Acidosis secondary to renal failure, non-anion gap metabolic acidosis superimposed with IV fluid. I am going to start the patient on oral bicarb and we will follow up the patient. Thank you Dr. Mckeon for allowing us to participate in the care of your patient. time 45 min discussing [facility] patient and arrange treatment with the staff JR Voice ID: [id number] Report ID: [id number] ANGELA
--- NOTE | 2019-10-27 19:44 | P.PN ---
Subjective Date of Service: 10/27/19 Primary Care Provider: [facility] ([facility]) Chief Complaint: LEANDRO on CKDV, dehydration seen and examined in AM. Patient reported feeling much better, feels less confused, breathing comfortably, denies chest pain, no abdominal pain, feels urine output has increased slightly Review of Systems General: Weakness Eyes: Unremarkable ENT: Unremarkable Respiratory: Unremarkable Cardiovascular: Unremarkable Gastrointestinal: Unremarkable Genitourinary: Unremarkable Musculoskeletal: Unremarkable Integumentary: Unremarkable Physical Examination - Vital Signs Temperature: 97.3 F Blood Pressure: 93/47 Pulse: 70 Respirations: 17 Pulse Ox (%): 92 - Physical Exam General: Alert, Oriented x3 HEENT: Mucous membr. moist/pink Neck: Supple, JVD not distended Respiratory: Clear to auscultation bilaterally, Normal air movement Cardiovascular: Regular rate/rhythm, Normal S1 S2 Capillary refill: <2 Seconds Gastrointestinal: Hypoactive, Soft and benign, Non-distended Musculoskeletal: No erythema, No tenderness Integumentary: No rashes Neurological: Normal speech, Normal affect Other Physical/Emotional Findings: +ostomy bag with stool Assessment & Plan Physician Review Additional Text: LEANDRO on CKDV Hypotension Lethargy, fatigue h/o diverticulitis/fistule now s/p colostomy Anemia of chronic disease GERD with h/o GI bleed Hyperlipidemia LEANDRO on CKDV -seems more multifactorial - pt has been taking NSAID TID, prerenal with decreased PO intake -continue IVF -renal consulted - appreciate assistance - another liter given to patient Hypotension -likely due to dehydration Lethargy, fatigue -likely due to LEANDRO and hypotension, and UTI, seems closer to baseline after receiving IVF UTI -urine studies resulted with likely UTI, started on Levaquin, f/u Culture h/o diverticulitis/fistula now s/p colostomy -continue ostomy care Anemia of chronic disease - monitor CBC GERD with h/o GI bleed -continue protonix, avoid anticoag / chemical DVT pro phylaxis for now VTE prophy: SCDs Dispo: anticipate dc in 24-48hrs Time Spent Managing Pts Care (In Minutes): 35
[2019-10-27] MEDS: ENSURE ENLIVE 237 ML CAN PO SCH (22:03)
[2019-10-27] MEDS: SODIUM BICARB 325 MG TAB PO SCH (22:05)
[2019-10-27] MEDS: MELATONIN 3 MG TABLET PO SCH (22:07)
[2019-10-27] MEDS: GABAPENTIN 100 MG CAP PO SCH (22:07)
[2019-10-28] MEDS: Levofloxacin 250mg IV 250 MG/50 ML BAG IV SCH (00:43)
[2019-10-28] MEDS: TRAMADOL HCL 50 MG TAB PO PRN (05:41)
[2019-10-28 05:49] LABS: Hematocrit 26.1 % (36.0-45.0); MPV 8.4 fL (7.6-11.3); RBC Red Blood Cell Count 2.84 M/uL (3.86-4.86)
[2019-10-28 06:25] LABS: Albumin 2.3 g/dL (3.4-5.0); Ferritin 134.2 ng/mL (8-388); Folic Acid, (Folate) 12.9 ng/mL (3.1-17.5); Magnesium 1.5 mg/dL (1.8-2.4); Phosphorus 6.2 mg/dL (2.5-4.9); Potassium 4.9 mmol/L (3.5-5.1); Thyroid Stimulating Hormone 0.364 uIU/mL (0.360-3.740); Uric Acid 6.6 mg/dL (2.6-6.0)
[2019-10-28] MEDS ORDERED: D50W 25 GM/50 ML SYRINGE/VIAL IV ONE (06:55)
[2019-10-28] MEDS: NA CHLORIDE 0.9% 1,000 ML IV SCH (07:19)
[2019-10-28] MEDS: PATIROMER CALCIUM SORBITEX PO SCH (09:00)
[2019-10-28] MEDS: VITAMIN D 1000 UNIT TAB PO SCH (09:00)
[2019-10-28] MEDS: NYSTATIN PWDR 100000 UNIT/GM TOP SCH ×3 (09:00→20:54)
[2019-10-28] MEDS: SODIUM BICARB 325 MG TAB PO SCH (09:29)
[2019-10-28] MEDS: PANTOPRAZOLE 40MG TABLET PO SCH (09:30)
[2019-10-28] MEDS: ASCORBIC ACID 500 MG TABLET PO SCH (09:30)
[2019-10-28] MEDS: MAGNESIUM OXIDE 400 MG TAB PO SCH (09:30)
[2019-10-28] MEDS: ZINC SULFATE 220 MG CAP PO SCH (09:30)
[2019-10-28] MEDS: LOPERAMIDE HCL 2 MG CAPSULE PO SCH ×3 (09:30→20:54)
[2019-10-28] MEDS: ENSURE ENLIVE 237 ML CAN PO SCH ×2 (09:31→20:53)
[2019-10-28] MEDS ORDERED: NA CHLORIDE 0.9% 500 ML IV ONE (10:48)
[2019-10-28] MEDS ORDERED: NA CHLORIDE 0.9% 500 ML ONE (10:57)
[2019-10-28] MEDS ORDERED: NACHLORIDE 0.45% 1,000 ML with NA BICARB 8.4% 75 MEQ IV SCH ×2 (11:30)
[2019-10-28] MEDS ORDERED: D50W 25 GM/50 ML SYRINGE/VIAL IV STA (11:43)
[2019-10-28] MEDS: MIDODRINE HCL 5 MG TABLET PO SCH ×2 (11:55→20:54)
[2019-10-28] MEDS: D50W 25 GM/50 ML SYRINGE/VIAL IV ONE ×2 (11:56)
--- NOTE | 2019-10-28 15:17 | P.PN ---
Subjective Date of Service: 10/28/19 Primary Care Provider: [facility]way ([facility]) Chief Complaint: LEANDRO on CKDV, dehydration Patient reports feeling better, feels "brain is more clear", reports she is making urine (in diaper), breathing comfortably, denies chest pain, no abdominal pain Review of Systems 10-point ROS is otherwise unremarkable Physical Examination - Vital Signs Temperature: 97.3 F Blood Pressure: 78/50 Pulse: 61 Respirations: 17 Pulse Ox (%): 90 - Physical Exam General: In no apparent distress, Oriented x3 HEENT: Mucous membr. moist/pink Respiratory: Clear to auscultation bilaterally, Diminished Cardiovascular: Regular rate/rhythm, Normal S1 S2 Gastrointestinal: Soft and benign, No tenderness, Other (+colostomy bag) Musculoskeletal: No tenderness Integumentary: No rashes, No breakdown Neurological: Normal speech Other Physical/Emotional Findings: +ostomy bag with stool Assessment & Plan Physician Review Additional Text: LEANDRO on CKDV Hypotension Lethargy, fatigue h/o diverticulitis/fistula now s/p colostomy Anemia of chronic disease GERD with h/o GI bleed Hyperlipidemia LEANDRO on CKDV -seems more multifactorial - pt has been taking NSAID TID, prerenal with de creased PO intake -renal consulted - appreciate assistance, IVF switched to D5 + bicarb, pt's bicarb and glc (even after 2x 1 amp D50) were low this morning -may need dialysis if no improvement Hypotension -likely due to dehydration, responded to IVF hydration, continue to monitor closely Lethargy, fatigue -likely due to LEANDRO and hypotension, and UTI, seems closer to baseline after receiving IVF UTI -urine studies resulted with likely UTI, Ur prelim culture/stain: gram- rods -continue Levaquin, f/u Culture h/o diverticulitis/fistula now s/p colostomy -continue ostomy care Anemia of chronic disease - monitor CBC GERD with h/o GI bleed -continue protonix, avoid anticoag / chemical DVT prophylaxis for now VTE prophy: SCDs Dispo: anticipate dc in ~48hrs Time Spent Managing Pts Care (In Minutes): 40
--- NOTE | 2019-10-28 15:41 | PN ---
Date of Progress Note: 10/28/2019 Subjective: The patient was admitted with acute kidney injury, multifactorial, secondary to poor per fusion, ATN, nonsteroidal use. Patient had GI loss with poor intake. Patient was started on IV hydr ation yesterday. Kidney function still the same. Patient had good urine output. Blood pressure sti ll on the lower side. Physical Examination: Vital Signs: Blood pressure 78/50, pulse of 60 afebrile. Chest: Faint rales on the left base. Heart: S1, S2. Regular. Abdomen: Soft, colostomy. Extremities: No edema. Neurologic: Alert. No focal. Confused. Laboratory Data: WBC 7.3, H and H 8.4/26.1, platelet 195. Sodium 142, potassium 4.9, bicarb 14, chl oride 119, anion gap is 133, BUN 47, creatinine 4.4, GFR of 9, uric acid 6.6, calcium 7.8, phosphorus 6.2, iron saturation 22, ferritin 134, PTH 117. Cortisol level is 17. Current Medications: The patient on include Levaquin 250 daily, Zanaflex, gabapentin. Sodium bicarb 650 t.i.d., zinc sulfate, loperamide, pantoprazole. Assessment And Plan: 1.Acute kidney injury multifactorial secondary to nonsteroidal use, poor perfusion, acute tubular ne crosis, nonoliguric, severe acidosis, no hyperkalemia. I had long discussion with the patient that t he need to initiate renal replacement therapy if kidney function did not improve. The patient is on agreement. We will go ahead and start the patient on bicarb drip. We will follow up the lab. By to eric, if kidney function did not improve, we will proceed with tunneled dialysis catheter and start the patient on dialysis. 2.Acidosis, non-anion gap metabolic acidosis, possible secondary to gastrointestinal loss/renal tubu lar acidosis secondary to renal failure. We will start the patient on bicarb drip. Continue oral. I am going to go ahead and send for serology to evaluate if there is any other etiology for the RTA. 3.Iron-deficiency anemia. We will start the patient on bicarb drip. SONALI/JOE Voice ID: [id number] Report ID: [id number]
[2019-10-28] MEDS: D5W 1,000 ML with NA BICARB 8.4% 100 MEQ IV SCH ×2 (16:59)
--- NOTE | 2019-10-28 20:27 | CON ---
Date of Consultation: 10/28/2019 Brief History Of Present Illness: The patient is an 84-year-old female who was sent to the emergency room by [facility] staff due to hypotension, worsening renal dysfunction, and decreased p.o. intak e with lethargy. The patient is a very poor historian and is unable to provide many details about a past medical history as such much information is obtained from the chart predominantly. The patient is awake and conversive during my exam, however. She has been by report having progressive worsening renal dysfunction. As such I was consulted for placement of a possible tunneled hemodialysis cathet er. Past Medical History: Significant for diverticulitis status post colostomy creation, coronary artery disease, hyperlipidemia, UTIs, GERD, GI bleed, CKD, essential hypertension, iron deficiency anemia. Past Surgical History: Includes a sigmoid colon resection, colostomy, fistulotomy, right cataract re moval. Allergies: TO CEFTIN, PLAVIX, LOVENOX, WARFARIN, AND CODEINE. Home Medications: Include vitamin C, Zyrtec, vitamin D, Neurontin, fexofenadine, hydrocortisone buty rate, Imodium, Mag-Ox, melatonin, nystatin, Zofran, Protonix, Veltassa, Zanaflex, Ultram, zinc sulfat e, . Family History: Significant for colon cancer and aneurysm. Social History: She denies smoking, alcohol, or recreational drug use. Review of Systems: Ten-point review of systems unable to obtain in detailed. The patient denies having any symptoms wha tsoever during my exam. Physical Examination: Vital Signs: At the time of my examination, her temperature is 97.3, pulse is 61, respiratory rate 1 7, blood pressure 78/50, oxygen saturation was 95% on room air. General: She is awake and alert, but is a poor historian as described. Psychiatric: She is appropriate and conversive, but once again, see above. HEENT: She is otherwise normocephalic. Her sclerae were anicteric. Mucous membranes are moist. He r oropharynx was clear. She has a very poor dentition with multiple teeth missing and very poor dent ition of the remaining teeth. Neck: Supple without JVD. Chest: Normal expansion and excursion. Cardiovascular: Regular rate and rhythm. Pulmonary: Clear to auscultation bilaterally. Skin: Warm and dry. She has a colostomy in place. Laboratory Data: Reveals a white blood cell count of 7.3, hemoglobin 9.4, hematocrit of 26.1, platel et count was 195. She had imaging performed, which included a renal ultrasound on 10/25 which is off icially read as increased renal echogenicity consistent with parenchymal disease. Assessment And Plan: This is an 84-year-old female with worsening kidney dysfunction. 1.Continue medical management. 2.I have explained risks, benefits, and alternatives of placement of a tunneled hemodialysis cathete r including but not limited to bleeding, infection, damage to surrounding tissues, pneumothorax, need further operations and procedures. The patient agrees to proceed as indicated. We will verify. Bhavya jeffery is aware of her plan as well, but will hold for Dr. Morales's verification to see if the patien t actually needs initiation of hemodialysis or is responding to medical management prior to any surgi vernell intervention. Thank you for this interesting consult. LAURA/JOE Voice ID: [id number] Report ID: [id number]
[2019-10-28] MEDS: GABAPENTIN 100 MG CAP PO SCH (20:53)
[2019-10-28] MEDS: MELATONIN 3 MG TABLET PO SCH (20:53)
[2019-10-29] MEDS: Levofloxacin 250mg IV 250 MG/50 ML BAG IV SCH (00:16)
[2019-10-29 06:22] LABS: Hematocrit 27.7 % (36.0-45.0); MPV 9.2 fL (7.6-11.3); RBC Red Blood Cell Count 3.04 M/uL (3.86-4.86)
[2019-10-29 06:43] LABS: Albumin 2.5 g/dL (3.4-5.0); Magnesium 1.6 mg/dL (1.8-2.4); Phosphorus 5.2 mg/dL (2.5-4.9); Potassium 4.1 mmol/L (3.5-5.1)
[2019-10-29] MEDS ORDERED: Magnesium Sulfate 2gm IVPB 2 G/50 ML BAG IV ONE (07:28)
[2019-10-29] MEDS: D5W 1,000 ML with NA BICARB 8.4% 100 MEQ IV SCH ×2 (07:40)
[2019-10-29] MEDS ORDERED: D50W 25 GM/50 ML SYRINGE/VIAL IV ONE (08:23)
[2019-10-29] MEDS: ZINC SULFATE 220 MG CAP PO SCH (08:34)
[2019-10-29] MEDS: LOPERAMIDE HCL 2 MG CAPSULE PO SCH ×3 (08:34→20:32)
[2019-10-29] MEDS: MAGNESIUM OXIDE 400 MG TAB PO SCH (08:35)
[2019-10-29] MEDS: PANTOPRAZOLE 40MG TABLET PO SCH (08:35)
[2019-10-29] MEDS: ASCORBIC ACID 500 MG TABLET PO SCH (08:35)
[2019-10-29] MEDS: MIDODRINE HCL 5 MG TABLET PO SCH ×3 (08:35→21:00)
[2019-10-29] MEDS: PATIROMER CALCIUM SORBITEX PO SCH (08:36)
[2019-10-29] MEDS: NYSTATIN PWDR 100000 UNIT/GM TOP SCH ×2 (08:36→20:58)
[2019-10-29] MEDS: VITAMIN D 1000 UNIT TAB PO SCH (08:36)
[2019-10-29] MEDS: ENSURE ENLIVE 237 ML CAN PO SCH ×2 (08:37→20:32)
--- NOTE | 2019-10-29 10:33 | P.PN ---
Date of Service: 10/29/19 Patient has decided she does not want dialysis and has refused placement of catheter, as such will sign off for now, please call back if patient decides to proceed with hemodialysis
[2019-10-29] MEDS ORDERED: FUROSEMIDE 40 MG/4 ML VIAL IV ONE (11:31)
[2019-10-29] MEDS: Meropenem 500 MG in NA CHLORIDE 0.9% 100 ML IV SCH (13:45)
[2019-10-29] MEDS: SODIUM BICARB 325 MG TAB PO SCH ×2 (14:12→20:32)
--- NOTE | 2019-10-29 16:25 | PN ---
Date of Progress Note: 10/29/2019 Subjective: The patient was admitted with acute kidney injury secondary to nonsteroidal use. The pa carmen's kidney function did not improve. The patient also has UTI with toxic acute tubular necrosis. The patient had severe acidosis secondary to renal failure and the GI loss. The patient after hydr ation kidney function did not improve, which rule out to be prerenal mostly it is secondary to nonste roidal, which can be transient. Objective: Vital Signs: When I saw the patient, blood pressure 91/48, pulse of 72. The patient had a wet diaper. Chest: Crackles bilateral. Heart: S1 and S2, systolic murmur. Abdomen: Colostomy. Extremities: No edema. Neurologic: Alert and oriented. No focal. Laboratory Data: Sodium 143, potassium 4.1, bicarb 18, BUN 48, creatinine 4.6, calcium 7.8 phosphoru s 5.1, magnesium 1.6. WBC 10.1, H and H 8.9/27.7. Current Medications: The patient on its include: 1.Levaquin. 2.Nystatin. 3.Meropenem. 4.Zanaflex. 5.Gabapentin. 6.Lasix. 7.Loperamide. 8.Pantoprazole. 9.Bicarb drip. 10.Hydrocortisone locally. Assessment/plan: 1.Acute kidney injury, normal-sized kidney, proteinuric, nonoliguric. I will discuss with the patie nt again regarding the renal replacement therapy. The patient refused renal replacement therapy yest veronica. We will discuss with her again if she agreed, we will proceed. Otherwise, I am going to disc ontinue IV fluid currently. We will give her single dose of Lasix and we will monitor. 2.Hypertension, controlled. Currently on the lower side. Continue midodrine. 3.Acidosis secondary to gastrointestinal loss. I going to discontinue bicarb drip. We will start t he patient on oral bicarb. 4.Urinary tract infection secondary to Proteus mirabilis, multidrug resistant. Discontinue Levaquin . Start the patient on meropenem and we will follow up. SONALI/JOE Voice ID: [id number] Report ID: [id number]
--- NOTE | 2019-10-29 18:41 | P.PN ---
Subjective Date of Service: 10/29/19 Primary Care Provider: half-way ([facility]) Chief Complaint: LEANDRO on CKDV, dehydration Patient now refusing dialysis, yesterday she agreed to it. States she "doesn't want to go through that" She continues to not have an appetite, states she doesn't want to eat anything. Reports no pain at this time, breathing comfortably Physical Examination - Vital Signs Temperature: 97.4 F Blood Pressure: 94/44 Pulse: 67 Respirations: 17 Pulse Ox (%): 96 - Physical Exam General: Oriented x2, Mild distress, Other (seems more sleepy today) HEENT: Sclerae nonicteric Neck: Supple, No LAD Respiratory: Normal air movement, Rhonchi/gurgles (bilateral bases) Cardiovascular: Edema (trace pedal bilaterally) Gastrointestinal: Normal bowel sounds, Soft and benign, No tenderness Musculoskeletal: No tenderness Integumentary: No rashes Neurological: Other Other Physical/Emotional Findings: +ostomy bag with stool Assessment & Plan Physician Review Additional Text: LEANDRO on CKDV Hypotension Lethargy, fatigue h/o diverticulitis/fistula now s/p colostomy Anemia of chronic disease GERD with h/o GI bleed Hyperlipidemia LEANDRO on CKDV -seems more multifactorial - pt has been taking NSAID TID, prerenal with decreased PO intake -renal consulted - appreciate assistance, IVF switched to D5 + bicarb, pt's bicarb and glc (even after 2x 1 amp D50) were low this morning -may need dialysis if no improvement Hypotension -likely due to dehydration, responded to IVF hydration, continue to monitor closely Lethargy, fatigue -likely due to LEANDRO and hypotension, and UTI, seems closer to baseline after receiving IVF UTI -urine studies resulted with likely UTI, Ur prelim culture/stain: gram- rods -continue Levaquin, f/u Culture h/o diverticulitis/fistula now s/p colostomy -continue ostomy care Anemia of chronic disease - monitor CBC GERD with h/o GI bleed -continue protonix, avoid anticoag / chemical DVT prophylaxis for now VTE prophy: SCDs Dispo: anticipate dc in ~48hrs
[2019-10-29] MEDS: MELATONIN 3 MG TABLET PO SCH (20:32)
[2019-10-29] MEDS: GABAPENTIN 100 MG CAP PO SCH (20:32)
[2019-10-29] MEDS ORDERED: carvediloL 3.125 MG TAB ONE (22:50)
[2019-10-30 01:31] LABS: Rheumatoid Factor NEG (NEG)
[2019-10-30] MEDS: Meropenem 500 MG in NA CHLORIDE 0.9% 100 ML IV SCH (08:00)
[2019-10-30] MEDS: PATIROMER CALCIUM SORBITEX PO SCH (08:01)
[2019-10-30] MEDS ORDERED: D50W 25 GM/50 ML SYRINGE/VIAL IV ONE ×2 (08:03→11:36)
[2019-10-30] MEDS: ZINC SULFATE 220 MG CAP PO SCH (08:12)
[2019-10-30] MEDS: PANTOPRAZOLE 40MG TABLET PO SCH (08:12)
[2019-10-30] MEDS: MAGNESIUM OXIDE 400 MG TAB PO SCH (08:12)
[2019-10-30] MEDS: SODIUM BICARB 325 MG TAB PO SCH ×3 (08:12→20:57)
[2019-10-30] MEDS: LOPERAMIDE HCL 2 MG CAPSULE PO SCH ×3 (08:12→20:57)
[2019-10-30] MEDS: NYSTATIN PWDR 100000 UNIT/GM TOP SCH ×2 (08:12→20:58)
[2019-10-30] MEDS: MIDODRINE HCL 5 MG TABLET PO SCH ×3 (08:12→20:57)
[2019-10-30] MEDS: ASCORBIC ACID 500 MG TABLET PO SCH (08:13)
[2019-10-30] MEDS: VITAMIN D 1000 UNIT TAB PO SCH (08:13)
[2019-10-30 08:15] LABS: MPV 9.8 fL (7.6-11.3); RBC Red Blood Cell Count 3.28 M/uL (3.86-4.86)
[2019-10-30 08:33] LABS: Albumin 2.2 g/dL (3.4-5.0); Magnesium 2.4 mg/dL (1.8-2.4); Phosphorus 5.7 mg/dL (2.5-4.9); Potassium 4.2 mmol/L (3.5-5.1)
[2019-10-30] MEDS: ENSURE ENLIVE 237 ML CAN PO SCH ×2 (08:35→20:55)
[2019-10-30] MEDS ORDERED: Meropenem 500 MG VIAL IV SCH (09:00)
[2019-10-30 10:18] LABS: Urine Protein/Creatinine Ratio 0.74 ratio (<0.15)
--- NOTE | 2019-10-30 11:16 | P.PN ---
Subjective Date of Service: 10/30/19 Primary Care Provider: [facility] ([facility]) Chief Complaint: LEANDRO on CKDV, dehydration Subjective Pt was sent from [place] for abnormal labs, Cr 8.0 on admission ,pt was refusing HD Today at time of my examination, pt was lethargic , but earlier , was alert and had discussion with hospitalist and stated she is refusing HD son refused HD earlier in respect to his mother wishes today son to verify goal of care Physical exam general: lethargic , NAD , thin Neck; Supple, No elevated JVD hear: RRR, normal S1,2 no murmur or rub Chest: CTAB, no rales or wheezes Abdomen: Soft , Nt, neri catheter Extremities No edema or ulcer Assessment/plan: LEANDRO on CKD cr still elevated The patient refused renal replacement therapy, now lethargic , son refused HD earlier will wait for family final decision HTN now BP on low side cont midodrine Enecaphlopathy possibly due to uremia and UTI cont Abx HAGMA cont sodium bicarb prognosis guarded , if son cont to refuse HD then will recommend comfort care Physical Examination - Vital Signs Temperature: 98.1 F Blood Pressure: 99/55 Pulse: 80 Respirations: 18 Pulse Ox (%): 91 - Physical Exam Other Physical/Emotional Findings: +ostomy bag with stool
--- NOTE | 2019-10-30 20:40 | P.PN ---
Subjective Date of Service: 10/30/19 Primary Care Provider: halfway ([facility]) Chief Complaint: LEANDRO on CKDV, dehydration refuses dialysis, would like to pursue hospice Physical Examination - Vital Signs Temperature: 97.6 F Blood Pressure: 104/54 Pulse: 81 Respirations: 18 Pulse Ox (%): 91 - Physical Exam General: Alert, Oriented x1 HEENT: EOMI Neck: Supple, No LAD Respiratory: Clear to auscultation bilaterally, Normal air movement Cardiovascular: Regular rate/rhythm, Normal S1 S2 Gastrointestinal: Soft and benign, No tenderness Musculoskeletal: No erythema, No tenderness Integumentary: No rashes Neurological: Other (occasionally slurred speech, very tired) Urinary: Gay catheter Other Physical/Emotional Findings: +ostomy bag with stool Assessment & Plan Physician Review Additional Text: LEANDRO on CKDV Hypotension Lethargy, fatigue h/o diverticulitis/fistula now s/p colostomy Anemia of chronic disease GERD with h/o GI bleed Hyperlipidemia LEANDRO on CKDV -seems more multifactorial - pt has been taking NSAID TID, prerenal with decreased PO intake -renal consulted - appreciate assistance - recommend dialysis as patient's renal function continues to worsen -pt refusing dialysis, had long discussion with her today, she demonstrates competence and understands her decisions -she understands refusing dialysis could mean she may soon, she would like to pursue hospice -hospice consulted -patient's son was called multiple times and unable to contact him Hypotension -continue midodrine, likely due to dehydration, responded to IVF hydration, continue to monitor closely Lethargy, fatigue -likely due to LEANDRO and hypotension, and UTI -has episodes of clarity, but brief -will likely continue to get worse UTI -urine studies resulted with likely UTI, Ur prelim culture/stain: gram- rods, proteus ESBL -switched to meropenem h/o diverticulitis/fistula now s/p colostomy -continue ostomy care Anemia of chronic disease - monitor CBC GERD with h/o GI bleed -continue protonix, avoid anticoag / chemical DVT prophylaxis for now Dispo: hospice consulted, they are unable to reach son as well, may need to move forward with patient's wishes without son's consent if unreachable Time Spent Managing Pts Care (In Minutes): 55
[2019-10-30] MEDS: GABAPENTIN 100 MG CAP PO SCH (20:57)
[2019-10-30] MEDS: MELATONIN 3 MG TABLET PO SCH (20:57)
[2019-10-31] MEDS: Meropenem 500 MG in NA CHLORIDE 0.9% 100 ML IV SCH (08:46)
[2019-10-31] MEDS: VITAMIN D 1000 UNIT TAB PO SCH (09:00)
[2019-10-31] MEDS: ZINC SULFATE 220 MG CAP PO SCH (09:00)
[2019-10-31] MEDS ORDERED: D10W 250 ML IV SCH (09:00)
[2019-10-31] MEDS: SODIUM BICARB 325 MG TAB PO SCH (09:00)
[2019-10-31] MEDS: MAGNESIUM OXIDE 400 MG TAB PO SCH (09:00)
[2019-10-31] MEDS: MIDODRINE HCL 5 MG TABLET PO SCH (09:00)
[2019-10-31] MEDS: LOPERAMIDE HCL 2 MG CAPSULE PO SCH (09:00)
[2019-10-31] MEDS: ASCORBIC ACID 500 MG TABLET PO SCH (09:00)
[2019-10-31] MEDS: PATIROMER CALCIUM SORBITEX PO SCH (09:00)
[2019-10-31] MEDS: PANTOPRAZOLE 40MG TABLET PO SCH (09:00)
[2019-10-31] MEDS: ENSURE ENLIVE 237 ML CAN PO SCH (09:00)
[2019-10-31] MEDS ORDERED: D50W 25 GM/50 ML SYRINGE/VIAL IV ONE (09:00)
[2019-10-31] MEDS: NYSTATIN PWDR 100000 UNIT/GM TOP SCH (09:00)
[2019-10-31 10:07] VITALS: BP 122/56; TEMP 97.4
--- NOTE | 2019-10-31 10:15 | P.PN ---
Subjective Date of Service: 10/31/19 Primary Care Provider: retirement ([facility]) Chief Complaint: LEANDRO on CKDV, dehydration Subjective: No new changes, Other (Drowsy , difficult to arouse) Review of Systems 10-point ROS is otherwise unremarkable Physical Examination - Vital Signs Temperature: 97.4 F Blood Pressure: 122/56 Pulse: 90 Respirations: 15 Pulse Ox (%): 100 - Physical Exam General: Alert HEENT: Atraumatic, Normocephalic Neck: Supple Respiratory: Clear to auscultation bilaterally Cardiovascular: Regular rate/rhythm, Normal S1 S2 Capillary refill: <2 Seconds Gastrointestinal: Soft and benign, W/out hepatosplenomegaly Musculoskeletal: No clubbing, No swelling Integumentary: No rashes Neurological: Other (Alert, Confused ) Lymphatics: No axilla or inguinal lymphadenopathy Other Physical/Emotional Findings: +ostomy bag with stool Assessment & Plan Physician Review Additional Text: LEANDRO on CKDV Hypotension Lethargy, fatigue h/o diverticulitis/fistula now s/p colostomy Anemia of chronic disease GERD with h/o GI bleed Hyperlipidemia LEANDRO on CKD stage V seems more multifactorial - pt has been taking NSAID TID, prerenal with decreased PO intake Nephrology consulted - recommend dialysis as patient's renal function continues to worsen Patient and family refusing dialysis, hospice consulted Hypotension -continue midodrine, likely due to dehydration, responded to IVF hydration, continue to monitor closely Lethargy, fatigue -likely due to LEANDRO and hypotension, and UTI -has episodes of clarity, but brief -will likely continue to get worse UTI -urine studies resulted with likely UTI, Ur prelim culture/stain: gram- rods, proteus ESBL -switched to meropenem h/o diverticulitis/fistula now s/p colostomy -continue ostomy care Anemia of chronic disease - monitor CBC GERD with h/o GI bleed -continue protonix, avoid anticoag / chemical DVT prophylaxis for now Disposition : Possible Dc to retirement with hospice Time Spent Managing Pts Care (In Minutes): 42
[2019-10-31 10:24] VITALS: O2SAT 100
--- NOTE | 2019-10-31 11:30 | P.DS ---
Admission Date: 10/26/19 Discharge Date: 10/31/19 Primary Care Provider: alf ([facility]) Disposition: TRANSFER TO [facility] Discharge Condition: GOOD Reason for Admission: LEANDRO on CKDV, dehydration Brief History of Present Illness: 84yo F who was sent to ED by alf staff due to hypotension, worsening renal function in setting of decreased PO intake and lethargy. Patient is a poor historian and unable to provide detailed history. She does state she was told she had worsening kidney function ~1 week ago by alf staff. She was unable to receive IVF due to inability to establish IV access. She stats otherwise she has been feeling well. She attributes decreased PO intake due to alf food not appearing appetizing to her. She denied recent fevers/chills, chest pain, SOB, abdominal pain, dysuria, change in urinary/bowel habits, rash, new skin lesions. In the ED, she noted to have BP ranging 80s-100/60-70s, responded to IVF boluses. She received a total of 1000ml in ED. Lab work notable for hemoglobin: 9.7, creatinine: 5.2, CRP: 6.4 Hospital Course: LEANDRO on CKDV Hypotension Lethargy, fatigue h/o diverticulitis/fistula now s/p colostomy Anemia of chronic disease GERD with h/o GI bleed Hyperlipidemia LEANDRO on CKD stage V seems more multifactorial - pt has been taking NSAID TID, prerenal with decreased PO intake Nephrology consulted - recommend dialysis as patient's renal function continues to worsen Patient and family refusing dialysis, hospice consulted Hypotension -continue midodrine, likely due to dehydration, responded to IVF hydration, continue to monitor closely Lethargy, fatigue -likely due to LEANDRO and hypotension, and UTI -has episodes of clarity, but brief -will likely continue to get worse UTI -urine studies resulted with likely UTI, Ur prelim culture/stain: gram- rods, proteus ESBL -switched to meropenem h/o diverticulitis/fistula now s/p colostomy -continue ostomy care Anemia of chronic disease - monitor CBC GERD with h/o GI bleed -continue protonix, avoid anticoag / chemical DVT prophylaxis for now Discussed in detail with the patient and the family Appreciate help from nephrology The patient and the family decided on no dialysis measures and return to alf with hospice Case management was consulted for hospice The patient is being discharged to alf with hospice Vital Signs/Physical Exam: Temp Pulse Resp BP Pulse Ox 97.4 F 90 15 122/56 L 100 10/31/19 10:15 10/31/19 10:15 10/31/19 10:15 10/31/19 10:15 10/31/19 10:15 General: Alert HEENT: Atraumatic, Normocephalic Neck: Supple Respiratory: Clear to auscultation bilaterally Cardiovascular: Regular rate/rhythm, Normal S1 S2 Capillary refill: <2 Seconds Gastrointestinal: Soft and benign, W/out hepatosplenomegaly Musculoskeletal: No clubbing, No swelling Integumentary: No significant lesion, No tenderness/swelling Neurological: Other (Alert) Lymphatics: No axilla or inguinal lymphadenopathy Other Physical/Emotional Findings: +ostomy bag with stool Laboratory Data at Discharge: WBC 10.7 K/uL (4.3-10.9) 10/30/19 06:28 Hgb 9.4 g/dL (12.0-15.0) L 10/30/19 06:28 Hct 30.0 % (36.0-45.0) L 10/30/19 06:28 Plt Count 185 K/uL (152-406) 10/30/19 06:28 PT 13.7 SECONDS (9.5-12.5) H 10/26/19 11:35 INR 1.16 10/26/19 11:35 Sodium 143 mmol/L (136-145) 10/30/19 06:28 Potassium 4.2 mmol/L (3.5-5.1) 10/30/19 06:28 BUN 50 mg/dL (7-18) H 10/30/19 06:28 Creatinine 5.08 mg/dL (0.55-1.3) H* 10/30/19 06:28 Glucose 57 mg/dL (74-106) L 10/30/19 06:28 Uric Acid 6.6 mg/dL (2.6-6.0) H 10/28/19 05:31 Phosphorus 5.7 mg/dL (2.5-4.9) H 10/30/19 06:28 Magnesium 2.4 mg/dL (1.8-2.4) D 10/30/19 06:28 Total Bilirubin 0.3 mg/dL (0.2-1.0) 10/27/19 05:45 AST 8 U/L (15-37) L 10/27/19 05:45 ALT 10 U/L (12-78) L 10/27/19 05:45 Alkaline Phosphatase 70 U/L (45-117) 10/27/19 05:45 Home Medications: Ascorbic Acid [Vitamin C*] 500 mg PO DAILY 10/26/19 Azelastine/Fluticasone [Azelastin-Flutic 137-50Mcg Spr] 1 in IN BIDP PRN 10/26/19 Cetirizine HCl [Zyrtec*] 10 mg PO DAILY 10/26/19 Cholecalciferol (Vitamin D3) [Vitamin D3] 1,000 unit PO DAILY 10/26/19 Fexofenadine HCl [Allergy Relief] 60 mg PO BIDP PRN 10/26/19 Gabapentin [Neurontin*] 100 mg PO BEDTIME 10/26/19 Hydrocortisone Butyrate/Emoll [Hydrocort Buty 0.1% Lipo Cream] 1 applic TOP TIDP PRN 10/26/19 Loperamide [Imodium] 2 mg PO TIDP PRN 10/26/19 Magnesium Oxide [Mag 0X*] 300 mg PO DAILY 10/26/19 Melatonin 3 mg PO BEDTIME 10/26/19 Nystatin 1 unit TOP BID 10/26/19 Ondansetron [Zofran (Odt)*] 4 mg PO TIDP PRN 10/26/19 Pantoprazole Sodium [Protonix] 40 mg PO DAILY 10/26/19 Patiromer Calcium Sorbitex [Veltassa] 1 packet PO DAILY 10/26/19 Tizanidine [Zanaflex*] 2 mg PO DAILYPRN PRN 10/26/19 Tramadol HCl [Ultram] 50 mg PO Q6HP PRN 10/26/19 Zinc Sulfate [Zinc Sulfate*] 220 mg PO DAILY 10/26/19 cilostazoL [Cilostazol] 50 mg PO BID 10/26/19 Diet: Renal Time spent managing pt's care (in minutes): 42
[2019-10-31] MEDS: TRAMADOL HCL 50 MG TAB PO PRN (11:32)
--- NOTE | 2019-10-31 22:51 | PN ---
Date of Progress Note: 10/31/2019 History Of Present Illness: Acute kidney injury on advanced chronic kidney, volume depletion. Subjective: The patient was sent from care home for abnormal creatinine, on admission was 8.0. T he patient is refusing dialysis. I spoke with the patient's and he stated that per his mothe r wish, which she discussed with family a long time ago as well as she confirmed today, she did not w ant to do dialysis. Review of Systems: The patient denies pain. Denies chest pain or shortness of breath. Physical Examination: Lungs: Diminished breath sounds at bases. Heart: S1, S2. Abdomen: Soft, benign. Extremities: No edema. No ulcers. Assessment And Plan: 1.Acute kidney injury on advanced chronic kidney disease. The patient is somewhat lethargic, althou gh she can answer simple questions. 2.Hypertension. Monitor blood pressure. Continue midodrine. 3.Encephalopathy due to uremia and urinary tract infection. Continue antibiotics. 4.Metabolic acidosis. Continue sodium bicarbonate. EB/MODL Voice ID: [id number] Report ID: [id number]
[2019-11-01 20:37] LABS: Hepatitis C Virus RNA (PCR)log <1.18 log IU/mL
[2019-11-02 07:30] LABS: Vitamin D 1,25-Dihydroxy Total 17 pg/mL (18-72); Vitamin D,1,25-OH2, D2 <8 pg/mL
[2019-11-02 20:31] LABS: HBsAG Nonreactive (Nonreactive)
== END 2019-10-31 14:08 | disposition hospice, inpatient (51) | DRG 682 ==
LOC: ER 10:27 → ERHOLD 15:33 → 2ND 16:37
PROVIDERS: ADMIT Hospitalist; ATTEND Family Medicine
DX: I12.0 Hypertensive chronic kidney disease with stage 5 chronic kidney disease or end stage renal disease (principal); N17.0 Acute kidney failure with tubular necrosis; N18.5 Chronic kidney disease, stage 5; N39.0 Urinary tract infection, site not specified; G93.40 Encephalopathy, unspecified; E87.2 Acidosis; E86.0 Dehydration; I95.9 Hypotension, unspecified; D63.1 Anemia in chronic kidney disease; K21.9 Gastro-esophageal reflux disease without esophagitis; E78.5 Hyperlipidemia, unspecified; I25.10 Atherosclerotic heart disease of native coronary artery without angina pectoris; B96.4 Proteus (mirabilis) (morganii) as the cause of diseases classified elsewhere; Z51.5 Encounter for palliative care; Z93.3 Colostomy status; Z11.59 Encounter for screening for other viral diseases
CPT/HCPCS: 36415; 76770; 80048; 80053; 80069; 81015; 82533; 82550; 82570; 82607; 82652; 82728; 82746; 82947; 83520; 83540; 83735; 83970; 84156; 84443; 84466; 84484; 84550; 85025; 85027; 85044; 85610; 86021; 86038; 86140; 86160; 86225; 86317; 86430; 86704; 86706; 87077; 87086; 87088; 87186; 87340; 87522; 93005; 96361; 96365; 97112; 97161; 97530; 99285; J1940; J3475; J7030; J7040; U0002